=== PATIENT | female | born 1965 | race Caucasian/White ===

== ENCOUNTER 2021-06-14 12:03 | Emergency (ER) | payer BC, SELFPAY ==
[2021-06-14 12:20] VITALS: BP 127/68; PULSE 79; RESP 16; TEMP 36.3; O2SAT 98
--- NOTE | 2021-06-14 12:51 | ED.SKABFB ---
HPI - Skin/Abscess/Foreign Bdy General Chief complaint: Skin/Abscess/Foreign Body Stated complaint: insect bite Time Seen by Provider: 06/14/21 12:51 Source: patient and RN notes reviewed Mode of arrival: ambulatory Limitations: no limitations History of Present Illness HPI narrative: 55-year-old female presents to the [facility] with complaints of possible hornet bite, area now red and warm to touch. Left knee area measuring 5 x 9 mild swelling with redness and increased warmth Patient reports that she was stung by she believes a hornet at 5 PM on Monday, 2 days ago. Has been using some topical numbing stuff. Related Data Home Medications Medication Instructions Recorded Confirmed allopurinol 06/14/21 atorvastatin 06/14/21 escitalopram oxalate mg 06/14/21 Allergies Allergy/AdvReac Type Severity Reaction Status Date / Time Penicillins Allergy Other Verified 06/14/21 12:41 Review of Systems Review of Systems: All systems reviewed & are unremarkable except as noted in HPI and below Constitutional: Constitutional: Reports no additional constitutional complaints, Denies chills and Denies fever(s) Eyes: Eyes: Reports no additional eye complaints ENT: Reports system reviewed and no additional complaints, except as documented Cardiovascular: Cardiovascular: Reports no additional cardiovascular complaints Respiratory: Respiratory: Reports no additional respiratory complaints Musculoskeletal: Musculoskeletal: Reports no additional musculoskeletal complaints Integumentary/Breasts: Skin/Breast: Reports as per HPI and Reports erythema (Left knee) Neurologic: Reports system reviewed and no additional complaints, except as documented Psychiatric: Psychiatric: Reports no additional psychiatric complaints Allergic/Immunologic: Allergic/Immunologic: Reports no additional allergic/immunologic complaints PMFSH Past Medical History Medical History (Updated 06/17/21 @ 11:24 by Jaky Linda) Depression Gout High cholesterol Comments At the time of my signature, I reviewed and agree with the nursing past medical, surgical, social, and family history. There is no relevant family history pertinent to the patient complaint. Exam Const: General: healthy appearing, no acute distress and alert Nutritional Appearance: well nourished Orientation/consciousness: patient oriented x3 Limitations: no limitations HENMT: Head: normal to inspection Eyes: Conjunctivae: conjunctivae normal Pupils: Equal, round and reactive pupils present Neck: Neck: normal visual inspection, no lymphadenopathy and no meningeal signs Chest: Chest palpation & inspection: normal inspection of the chest Resp: Effort & Inspection: normal respiratory effort and no use of accessory muscles Auscultation: clear to auscultation bilaterally Cardio: Rate: regular rate Rhythm: regular rhythm : General: Yes no CVA tenderness Back/Spine/Pelvis: Back: no CVA tenderness Skin: Rashes: no rashes Wounds: no wounds Other: 5x9 cm area left knee area mildly raised, tender, hot to touch Neuro: General: patient oriented x3, moves all extremities, no meningeal signs and no focal motor deficits Speech: normal speech Gait exam (Neuro): Normal gait present Extrem: General: normal to inspection and no pedal edema Psych: Appearance: grossly normal and well kempt Mental Status: mental status grossly normal Affect: normal affect Attitude: cooperative Thought content: Yes Normal thought content present Course Course Emergency Course: Discharge instructions reviewed with patient, as well as provided in writing per nursing staff. The instructions also include specific and strict return/GO TO THE ER as well as f/u information. All questions have been answered, and the patient deny any further questions with discharge and discharge plan. Vital Signs Vital signs: Vital Signs Temperature 97.4 F L 06/14/21 12:20 Pulse Rate 79 06/14/21 12:20 Res
== END 2021-06-14 13:10 | disposition home or self-care (01) ==
PROVIDERS: Emergency Provider Nurse Practitioner
DX: L03.116 Cellulitis of left lower limb (principal); M10.9 Gout, unspecified; E78.00 Pure hypercholesterolemia, unspecified
CPT/HCPCS: 99203; G0463

== ENCOUNTER 2024-09-03 08:49 | Outpatient (CLI) | payer OTHER, SELFPAY ==
[2024-09-03 09:52] LABS: Basophils Absolute Auto 0.04 K/mm3 (0.00-0.10); Basophils Percent Auto 0.5 % (0.0-1.0); Hematocrit 31.4 % (35.0-49.0); Immature Granulocyte Absolute 0.03 K/mm3 (0.00-0.00); Immature Granulocyte Percent A 0.4 % (0.0-0.0); Lymphocytes Absolute Auto 1.26 K/mm3 (1.10-4.50); Lymphocytes Percent Auto 14.9 % (18.0-42.0); Mean Corpuscular HGB Conc 31.8 g/dL (32-36); Mean Corpuscular Hemoglobin 31.7 pg (27.0-31.0); Mean Corpuscular Volume 99.7 fL (78.0-102.0); Mean Platelet Volume 10.6 fl (9.2-11.8); Monocytes Absolute Auto 0.58 K/mm3 (0.10-0.90); Monocytes Percent Auto 6.8 % (2.0-11.0); Neutrophils Absolute Auto 6.56 K/mm3 (1.70-7.20); Neutrophils Percent Auto 77.4 % (50.0-70.0); Platelet Count Result 242 K/mm3 (150-420); Red Blood Count 3.15 M/mm3 (4.20-5.40); Red Cell Distribution Width 15.5 % (11.6-14.4); White Blood Count 8.5 K/mm3 (4.8-10.8)
[2024-09-03 10:03] VITALS: BP 117/64; PULSE 80; RESP 16; TEMP 36.6; O2SAT 98; BMI 27.1
[2024-09-03 10:24] LABS: Estimated CRCL calculation 38 ml/min
[2024-09-03 10:26] LABS: Alanine Aminotransferase 17 U/L (14-59); Albumin Level 3.4 g/dL (3.4-5.0); Alkaline Phosphatase 192 U/L (46-116); Anion Gap 9 mmol/L (4-12); Aspartate Amino Transferase 11 U/L (15-37); Bilirubin,Total 0.2 mg/dL (0.00-1.00); Blood Urea Nitrogen 26 mg/dL (7-18); Calcium 9.3 mg/dL (8.5-10.1); Carbon Dioxide 28 mmol/L (21-32); Chloride 107 mmol/L (98-108); Estimated Glomerular Filt Rate 39; Glucose 98 mg/dL (70-99); Osmolality Calculated 302 mOsm/kg (285-295); Potassium 5.5 mmol/L (3.5-5.1); Sodium 144 mmol/L (136-145); Total Protein 6.7 g/dL (6.4-8.2)
[2024-09-03] MEDS: BORTEZOMIB 3.5 MG/1.4 ML VIAL 2.5 MG SUB-Q (10:53)
[2024-09-03] MEDS: DARATUMUMAB-HYALURONIDASE-FIHJ 1,800 MG-30,000 UNITS VIAL 15 ML SUB-Q (10:53)
--- NOTE | 2024-09-03 11:11 | PC.NURSE ---
Patient tolerated chemo tx injections well. SEE MAR/patient care notes.
[2024-09-03 11:23] VITALS: BP 111/60; PULSE 80; RESP 14; TEMP 36.6; O2SAT 97
== END 2024-09-03 08:50 | disposition home or self-care (01) ==
PROVIDERS: PCP Nurse Practitioner Family; Visit Provider Internal Medicine Hematology
DX: Z51.11 Encounter for antineoplastic chemotherapy (principal); C90.00 Multiple myeloma not having achieved remission; E78.5 Hyperlipidemia, unspecified
CPT/HCPCS: 36415; 80053; 85025; 96401; J9041; J9144

== ENCOUNTER 2024-09-06 08:35 | Outpatient (CLI) | payer OTHER, SELFPAY ==
[2024-09-06 08:53] VITALS: BP 117/60; PULSE 72; RESP 14; TEMP 36.7; O2SAT 98; BMI 29.0
[2024-09-06] MEDS: BORTEZOMIB 3.5 MG/1.4 ML VIAL 2.5 MG SUB-Q (09:09)
[2024-09-06 09:47] VITALS: BP 118/63; PULSE 78; RESP 14
--- NOTE | 2024-09-06 09:47 | PC.NURSE ---
Tolerated bortezomib injection well. SEE MAR/patient care notes
== END 2024-09-06 08:36 | disposition home or self-care (01) ==
PROVIDERS: PCP Nurse Practitioner Family
DX: Z51.11 Encounter for antineoplastic chemotherapy (principal); C90.00 Multiple myeloma not having achieved remission
CPT/HCPCS: 96401; J9041

== ENCOUNTER 2024-09-10 08:40 | Outpatient (CLI) | payer OTHER, SELFPAY ==
[2024-09-10 09:09] VITALS: BP 123/52; PULSE 77; RESP 16; TEMP 36.4; O2SAT 97; BMI 28.8
[2024-09-10] MEDS: DARATUMUMAB-HYALURONIDASE-FIHJ 1,800 MG-30,000 UNITS VIAL 15 ML SUB-Q (09:24)
[2024-09-10] MEDS: BORTEZOMIB 3.5 MG/1.4 ML VIAL 2.5 MG SUB-Q (09:24)
[2024-09-10 09:51] VITALS: BP 113/60; PULSE 72; RESP 14; O2SAT 96
--- NOTE | 2024-09-10 09:58 | PC.NURSE ---
Tolerated Bortezomib and Darzalex Faspro injection well. SEE MAR/patient care notes.
== END 2024-09-10 08:41 | disposition home or self-care (01) ==
PROVIDERS: PCP Nurse Practitioner Family
DX: Z51.11 Encounter for antineoplastic chemotherapy (principal); C90.00 Multiple myeloma not having achieved remission
CPT/HCPCS: 96401; J9041; J9144

== ENCOUNTER 2024-09-11 11:44 | Outpatient (CLI) | payer OTHER, SELFPAY ==
[2024-09-11 12:44] LABS: Alanine Aminotransferase 28 U/L (14-59); Albumin Level 3.4 g/dL (3.4-5.0); Alkaline Phosphatase 170 U/L (46-116); Anion Gap 11 mmol/L (4-12); Aspartate Amino Transferase 10 U/L (15-37); Bilirubin,Total 0.2 mg/dL (0.00-1.00); Blood Urea Nitrogen 29 mg/dL (7-18); Calcium 9.3 mg/dL (8.5-10.1); Carbon Dioxide 27 mmol/L (21-32); Chloride 104 mmol/L (98-108); Estimated Glomerular Filt Rate 52; Glucose 136 mg/dL (70-99); Osmolality Calculated 301 mOsm/kg (285-295); Sodium 142 mmol/L (136-145); Total Protein 6.5 g/dL (6.4-8.2)
== END 2024-09-11 11:45 | disposition home or self-care (01) ==
LOC: CHSLAB 11:46
PROVIDERS: PCP Nurse Practitioner Family; Visit Provider Internal Medicine Hematology
DX: C90.00 Multiple myeloma not having achieved remission (principal)
CPT/HCPCS: 36415; 80053

== ENCOUNTER 2024-09-13 08:35 | Outpatient (CLI) | payer OTHER, SELFPAY ==
[2024-09-13] MEDS: SODIUM CHLORIDE 0.9% IV 1,000 ML 1000 ML IVPB (09:00)
[2024-09-13 09:12] VITALS: BMI 28.8
[2024-09-13] MEDS: BORTEZOMIB 3.5 MG/1.4 ML VIAL 2.5 MG SUB-Q (09:25)
[2024-09-13 09:26] VITALS: BP 109/60; PULSE 78; RESP 14; TEMP 36.5; O2SAT 98
[2024-09-13 10:08] VITALS: BP 111/63; PULSE 78; O2SAT 98
--- NOTE | 2024-09-13 11:11 | PC.NURSE ---
1020 Tolerated IV fluids and Bortezomib injection well. SEE MAR/patient care notes
== END 2024-09-13 08:36 | disposition home or self-care (01) ==
PROVIDERS: PCP Nurse Practitioner Family
DX: Z51.11 Encounter for antineoplastic chemotherapy (principal); C90.00 Multiple myeloma not having achieved remission
CPT/HCPCS: 96360; 96401; J9041

== ENCOUNTER 2024-09-17 08:41 | Outpatient (CLI) | payer OTHER, SELFPAY ==
--- NOTE | ~2024-09-17 | US_ITS ---
EXAMINATION: US venous doppler UE DATE: 09/17/2024 12:34 INDICATION: Left upper limb swelling. TECHNIQUE: Grayscale ultrasound images without and with compression and Doppler ultrasound images of the left upper extremity veins were obtained. COMPARISON: None. FINDINGS: The visualized portions of the left internal jugular vein and subclavian vein are patent. There is th rombus in the left axillary vein, brachial veins, basilic vein, cephalic vein, radial vein, and ulnar vein. IMPRESSION: 1. Deep and superficial vein thrombosis in left upper limb. Reviewed, dictated and finalized at location A. [facility]
[2024-09-17 09:08] LABS: Hemoglobin 10.5 g/dL (12.0-15.0); Immature Platelet Fraction Pct 17.8 % (1.0-7.0); Mean Corpuscular HGB Conc 32.8 g/dL (32-36); Mean Corpuscular Hemoglobin 31.3 pg (27.0-31.0); Mean Corpuscular Volume 95.2 fL (78.0-102.0); Platelet Count Result 75 K/mm3 (150-420); Red Blood Count 3.36 M/mm3 (4.20-5.40); Red Cell Distribution Width 15.4 % (11.6-14.4)
[2024-09-17 09:27] LABS: Alanine Aminotransferase 20 U/L (14-59); Albumin Level 3.1 g/dL (3.4-5.0); Alkaline Phosphatase 143 U/L (46-116); Anion Gap 7 mmol/L (4-12); Aspartate Amino Transferase < 10 U/L (15-37); Bilirubin,Total 0.4 mg/dL (0.00-1.00); Blood Urea Nitrogen 27 mg/dL (7-18); Calcium 8.6 mg/dL (8.5-10.1); Carbon Dioxide 28 mmol/L (21-32); Chloride 104 mmol/L (98-108); Estimated Glomerular Filt Rate 51; Glucose 94 mg/dL (70-99); Osmolality Calculated 293 mOsm/kg (285-295); Sodium 139 mmol/L (136-145); Total Protein 6.4 g/dL (6.4-8.2)
[2024-09-17 09:59] VITALS: BP 107/68; PULSE 78; TEMP 36.4; O2SAT 97; BMI 29.5
[2024-09-17] MEDS: DARATUMUMAB-HYALURONIDASE-FIHJ 1,800 MG-30,000 UNITS VIAL 15 ML SUB-Q (10:14)
[2024-09-17 10:43] VITALS: BP 110/60; PULSE 76; RESP 14; O2SAT 97
--- NOTE | 2024-09-17 10:56 | PC.NURSE ---
Tolerated treatment well. SEE MAR/patient care notes.
== END 2024-09-17 08:42 | disposition home or self-care (01) ==
PROVIDERS: PCP Nurse Practitioner Family; Visit Provider Internal Medicine Hematology
DX: Z51.11 Encounter for antineoplastic chemotherapy (principal); C90.00 Multiple myeloma not having achieved remission; I82.622 Acute embolism and thrombosis of deep veins of left upper extremity; I82.612 Acute embolism and thrombosis of superficial veins of left upper extremity
CPT/HCPCS: 36415; 80053; 85027; 85055; 88305; 93971; 96401; J9144

== ENCOUNTER 2024-09-24 08:45 | Outpatient (CLI) | payer OTHER, SELFPAY ==
[2024-09-24 09:05] LABS: Hematocrit 29.8 % (35.0-49.0); Hemoglobin 9.4 g/dL (12.0-15.0); Mean Corpuscular HGB Conc 31.5 g/dL (32-36); Mean Corpuscular Hemoglobin 30.5 pg (27.0-31.0); Mean Corpuscular Volume 96.8 fL (78.0-102.0); Mean Platelet Volume 10.3 fl (9.2-11.8); Platelet Count Result 346 K/mm3 (150-420); Red Blood Count 3.08 M/mm3 (4.20-5.40); Red Cell Distribution Width 15.9 % (11.6-14.4); White Blood Count 3.5 K/mm3 (4.8-10.8)
[2024-09-24 09:10] VITALS: BP 123/60; PULSE 73; RESP 16; TEMP 36.6; O2SAT 98; BMI 29.3
[2024-09-24 09:17] LABS: Alanine Aminotransferase 20 U/L (14-59); Alkaline Phosphatase 155 U/L (46-116); Anion Gap 4 mmol/L (4-12); Aspartate Amino Transferase < 10 U/L (15-37); Bilirubin,Total 0.3 mg/dL (0.00-1.00); Blood Urea Nitrogen 25 mg/dL (7-18); Carbon Dioxide 29 mmol/L (21-32); Chloride 105 mmol/L (98-108); Estimated CRCL calculation 55 ml/min; Estimated Glomerular Filt Rate 56; Glucose 100 mg/dL (70-99); Osmolality Calculated 290 mOsm/kg (285-295); Potassium 5.1 mmol/L (3.5-5.1); Sodium 138 mmol/L (136-145); Total Protein 6.4 g/dL (6.4-8.2)
[2024-09-24 09:24] LABS: Band Neutrophils Percent 0 % (0-6); Eosinophils Absolute Manual 0.03 K/mm3 (0.02-0.50); Eosinophils Percent Manual 1 % (1-6); Lymphocytes Absolute Manual 0.28 K/mm3 (1.1-4.5); Lymphocytes Percent Manual 8 % (18-44); Monocytes Absolute Manual 0.45 K/mm3 (0.1-0.90); Monocytes Percent Manual 13 % (3-9); Neutrophils Absolute Manual 2.73 K/mm3 (1.7-7.2); Neutrophils Percent Manual 78 % (46-73); Platelet Estimate Adequate (Adequate); Total Cells Counted 100
[2024-09-24] MEDS: FAMOTIDINE 20 MG TABLET PO (09:35)
[2024-09-24] MEDS: diphenhydrAMINE HCl CAP 25 MG CAPSULE PO (09:35)
[2024-09-24] MEDS: ACETAMINOPHEN 325 MG TABLET 650 MG PO (09:35)
[2024-09-24] MEDS: BORTEZOMIB 3.5 MG/1.4 ML VIAL 2.5 MG SUB-Q (10:13)
[2024-09-24] MEDS: DARATUMUMAB-HYALURONIDASE-FIHJ 1,800 MG-30,000 UNITS VIAL 15 ML SUB-Q (10:14)
[2024-09-24 10:50] VITALS: BP 103/60; PULSE 72; RESP 14; O2SAT 98
--- NOTE | 2024-09-24 11:10 | PC.NURSE ---
Tolerated treatment well. SEE MAR/patient care notes.
== END 2024-09-24 08:46 | disposition home or self-care (01) ==
PROVIDERS: PCP Nurse Practitioner Family
DX: C90.00 Multiple myeloma not having achieved remission (principal)
CPT/HCPCS: 36415; 80053; 85025; 96401; A9270; J9041; J9144

== ENCOUNTER 2024-09-27 08:46 | Outpatient (CLI) | payer OTHER, SELFPAY ==
[2024-09-27 09:04] VITALS: BP 103/63; PULSE 80; RESP 14; TEMP 36.5; O2SAT 98; BMI 29.7
[2024-09-27] MEDS: BORTEZOMIB 3.5 MG/1.4 ML VIAL 2.5 MG SUB-Q (09:17)
[2024-09-27 09:35] VITALS: BP 107/60; PULSE 78; RESP 14
--- NOTE | 2024-09-27 09:37 | PC.NURSE ---
Patient tolerated Bortezomib injection well. SEE MAR/patient care notes. Had to document in MAR manual r/t admitting unable to print arm band with barcode/stickers.
== END 2024-09-27 08:47 | disposition home or self-care (01) ==
PROVIDERS: PCP Nurse Practitioner Family
DX: Z51.11 Encounter for antineoplastic chemotherapy (principal); C90.00 Multiple myeloma not having achieved remission
CPT/HCPCS: 96401; J9041

== ENCOUNTER 2024-10-01 08:56 | Outpatient (CLI) | payer OTHER, SELFPAY ==
[2024-10-01 09:16] VITALS: BP 107/68; PULSE 72; RESP 14; TEMP 36; O2SAT 98; BMI 29.3
[2024-10-01 09:18] LABS: Hematocrit 31.4 % (35.0-49.0); Hemoglobin 9.8 g/dL (12.0-15.0); Mean Corpuscular HGB Conc 31.2 g/dL (32-36); Mean Corpuscular Hemoglobin 29.8 pg (27.0-31.0); Mean Corpuscular Volume 95.4 fL (78.0-102.0); Mean Platelet Volume 12.6 fl (9.2-11.8); Platelet Count Result 196 K/mm3 (150-420); Red Blood Count 3.29 M/mm3 (4.20-5.40); Red Cell Distribution Width 16.3 % (11.6-14.4); White Blood Count 3.2 K/mm3 (4.8-10.8)
[2024-10-01 09:39] LABS: Alanine Aminotransferase 17 U/L (14-59); Alkaline Phosphatase 160 U/L (46-116); Anion Gap 7 mmol/L (4-12); Aspartate Amino Transferase < 10 U/L (15-37); Bilirubin,Total 0.2 mg/dL (0.00-1.00); Blood Urea Nitrogen 22 mg/dL (7-18); Calcium 8.8 mg/dL (8.5-10.1); Carbon Dioxide 29 mmol/L (21-32); Chloride 106 mmol/L (98-108); Estimated CRCL calculation 54 ml/min; Estimated Glomerular Filt Rate 55; Glucose 102 mg/dL (70-99); Osmolality Calculated 297 mOsm/kg (285-295); Potassium 4.2 mmol/L (3.5-5.1); Sodium 142 mmol/L (136-145); Total Protein 6.3 g/dL (6.4-8.2)
[2024-10-01 09:48] LABS: Band Neutrophils Percent 5 % (0-6); Basophils Absolute Manual 0.03 K/mm3 (0-0.1); Basophils Percent Manual 1 % (0-1); Eosinophils Percent Manual 0 % (1-6); Lymphocytes Absolute Manual 0.28 K/mm3 (1.1-4.5); Lymphocytes Percent Manual 9 % (18-44); Monocytes Absolute Manual 0.32 K/mm3 (0.1-0.90); Monocytes Percent Manual 10 % (3-9); Neutrophils Absolute Manual 2.56 K/mm3 (1.7-7.2); Neutrophils Percent Manual 75 % (46-73); Platelet Estimate Adequate (Adequate); Total Cells Counted 100
[2024-10-01] MEDS: DARATUMUMAB-HYALURONIDASE-FIHJ 1,800 MG-30,000 UNITS VIAL 15 ML SUB-Q (10:35)
[2024-10-01] MEDS: BORTEZOMIB 3.5 MG/1.4 ML VIAL 2.5 MG SUB-Q (10:36)
[2024-10-01 10:51] VITALS: BP 117/59; PULSE 78; RESP 14; TEMP 36.1; O2SAT 97
--- NOTE | 2024-10-01 10:52 | PC.NURSE ---
Tolerated injections well. SEE MAR/patient care notes.
== END 2024-10-01 08:57 | disposition home or self-care (01) ==
PROVIDERS: PCP Nurse Practitioner Family; Visit Provider Internal Medicine Hematology
DX: Z51.11 Encounter for antineoplastic chemotherapy (principal); C90.00 Multiple myeloma not having achieved remission
CPT/HCPCS: 36415; 80053; 85025; 96401; J9041; J9144

== ENCOUNTER 2024-10-04 08:45 | Outpatient (CLI) | payer OTHER, SELFPAY ==
[2024-10-04 09:05] VITALS: BP 113/57; PULSE 70; RESP 16; TEMP 36.6; O2SAT 98; BMI 29.5
[2024-10-04] MEDS: BORTEZOMIB 3.5 MG/1.4 ML VIAL 2.5 MG SUB-Q (09:16)
--- NOTE | 2024-10-04 09:23 | PC.NURSE ---
Patient tolerated her treatment injection well. SEE MAR/patient care notes.
[2024-10-04 09:24] VITALS: BP 113/60; PULSE 80; RESP 14
== END 2024-10-04 08:46 | disposition home or self-care (01) ==
PROVIDERS: PCP Nurse Practitioner Family; Visit Provider Internal Medicine Hematology
DX: Z51.11 Encounter for antineoplastic chemotherapy (principal); C90.00 Multiple myeloma not having achieved remission
CPT/HCPCS: 96401; J9041

== ENCOUNTER 2024-10-15 08:53 | Outpatient (CLI) | payer OTHER, SELFPAY ==
[2024-10-15 09:21] LABS: Hematocrit 29.7 % (35.0-49.0); Hemoglobin 9.6 g/dL (12.0-15.0); Mean Corpuscular HGB Conc 32.3 g/dL (32-36); Mean Corpuscular Hemoglobin 30.9 pg (27.0-31.0); Mean Corpuscular Volume 95.5 fL (78.0-102.0); Platelet Count Result 242 K/mm3 (150-420); Red Blood Count 3.11 M/mm3 (4.20-5.40); Red Cell Distribution Width 16.9 % (11.6-14.4); White Blood Count 4.8 K/mm3 (4.8-10.8)
[2024-10-15 09:22] VITALS: BP 115/63; PULSE 72; RESP 16; TEMP 36.6; O2SAT 98; BMI 29.2
[2024-10-15] MEDS: ACETAMINOPHEN 325 MG TABLET 650 MG PO (09:45)
[2024-10-15 09:51] LABS: Alanine Aminotransferase 18 U/L (14-59); Albumin Level 3.1 g/dL (3.4-5.0); Alkaline Phosphatase 129 U/L (46-116); Anion Gap 8 mmol/L (4-12); Aspartate Amino Transferase < 10 U/L (15-37); Bilirubin,Total 0.2 mg/dL (0.00-1.00); Blood Urea Nitrogen 31 mg/dL (7-18); Calcium 8.7 mg/dL (8.5-10.1); Carbon Dioxide 26 mmol/L (21-32); Chloride 105 mmol/L (98-108); Estimated Glomerular Filt Rate 57; Glucose 126 mg/dL (70-99); Osmolality Calculated 296 mOsm/kg (285-295); Potassium 4.6 mmol/L (3.5-5.1); Sodium 139 mmol/L (136-145); Total Protein 5.9 g/dL (6.4-8.2)
[2024-10-15 09:53] LABS: Estimated CRCL calculation 55 ml/min
[2024-10-15] MEDS: FAMOTIDINE 20 MG TABLET PO (10:00)
[2024-10-15] MEDS: diphenhydrAMINE HCl CAP 25 MG CAPSULE PO (10:01)
[2024-10-15] MEDS: DARATUMUMAB-HYALURONIDASE-FIHJ 1,800 MG-30,000 UNITS VIAL 15 ML SUB-Q (10:10)
[2024-10-15] MEDS: BORTEZOMIB 3.5 MG/1.4 ML VIAL 2.5 MG SUB-Q (10:10)
[2024-10-15 10:46] VITALS: BP 113/60; PULSE 72; RESP 16; O2SAT 96
--- NOTE | 2024-10-15 10:47 | PC.NURSE ---
Patient tolerated injections well. SEE MAR/patient care notes.
== END 2024-10-15 08:54 | disposition home or self-care (01) ==
PROVIDERS: PCP Nurse Practitioner Family
DX: Z51.11 Encounter for antineoplastic chemotherapy (principal); C90.00 Multiple myeloma not having achieved remission
CPT/HCPCS: 36415; 80053; 85027; 96401; A9270; J9041; J9144

== ENCOUNTER 2024-10-18 09:01 | Outpatient (CLI) | payer OTHER, SELFPAY ==
[2024-10-18 09:14] VITALS: BP 109/57; PULSE 80; RESP 14; TEMP 36.6; O2SAT 97; BMI 29.2
[2024-10-18] MEDS: BORTEZOMIB 3.5 MG/1.4 ML VIAL 2.5 MG SUB-Q (09:34)
--- NOTE | 2024-10-18 09:42 | PC.NURSE ---
Tolerated Bortezomib injection well. SEE MAR/patient care notes.
[2024-10-18 09:43] VITALS: BP 107/56; PULSE 78; RESP 14; O2SAT 97
== END 2024-10-18 09:02 | disposition home or self-care (01) ==
PROVIDERS: PCP Nurse Practitioner Family
DX: Z51.11 Encounter for antineoplastic chemotherapy (principal); C90.00 Multiple myeloma not having achieved remission
CPT/HCPCS: 96401; J9041

== ENCOUNTER 2024-10-22 08:55 | Outpatient (CLI) | payer OTHER, SELFPAY ==
[2024-10-22 09:18] LABS: Basophils Absolute Auto 0.05 K/mm3 (0.00-0.10); Basophils Percent Auto 1.2 % (0.0-1.0); Hematocrit 30.9 % (35.0-49.0); Hemoglobin 10.1 g/dL (12.0-15.0); Immature Granulocyte Absolute 0.03 K/mm3 (0.00-0.00); Immature Granulocyte Percent A 0.7 % (0.0-0.0); Lymphocytes Percent Auto 4.8 % (18.0-42.0); Mean Corpuscular HGB Conc 32.7 g/dL (32-36); Mean Corpuscular Volume 94.8 fL (78.0-102.0); Mean Platelet Volume 11.7 fl (9.2-11.8); Monocytes Absolute Auto 0.21 K/mm3 (0.10-0.90); Neutrophils Absolute Auto 3.69 K/mm3 (1.70-7.20); Neutrophils Percent Auto 88.3 % (50.0-70.0); Platelet Count Result 161 K/mm3 (150-420); Red Blood Count 3.26 M/mm3 (4.20-5.40); Red Cell Distribution Width 17.3 % (11.6-14.4); White Blood Count 4.2 K/mm3 (4.8-10.8)
[2024-10-22 09:27] VITALS: BP 110/58; PULSE 72; RESP 16; TEMP 36.6; O2SAT 96; BMI 29.3
[2024-10-22] MEDS: diphenhydrAMINE HCl CAP 25 MG CAPSULE PO (09:30)
[2024-10-22] MEDS: FAMOTIDINE 20 MG TABLET PO (09:30)
[2024-10-22] MEDS: ACETAMINOPHEN 325 MG TABLET 650 MG PO (09:30)
[2024-10-22 09:34] LABS: Alanine Aminotransferase 20 U/L (14-59); Albumin Level 3.3 g/dL (3.4-5.0); Alkaline Phosphatase 139 U/L (46-116); Anion Gap 10 mmol/L (4-12); Aspartate Amino Transferase < 10 U/L (15-37); Bilirubin,Total 0.4 mg/dL (0.00-1.00); Blood Urea Nitrogen 22 mg/dL (7-18); Calcium 8.9 mg/dL (8.5-10.1); Carbon Dioxide 27 mmol/L (21-32); Chloride 105 mmol/L (98-108); Estimated Glomerular Filt Rate 54; Glucose 95 mg/dL (70-99); Osmolality Calculated 297 mOsm/kg (285-295); Potassium 4.6 mmol/L (3.5-5.1); Sodium 142 mmol/L (136-145); Total Protein 6.2 g/dL (6.4-8.2)
[2024-10-22 09:37] LABS: Estimated CRCL calculation 53 ml/min
[2024-10-22] MEDS: DARATUMUMAB-HYALURONIDASE-FIHJ 1,800 MG-30,000 UNITS VIAL 15 ML SUB-Q (09:55)
[2024-10-22] MEDS: BORTEZOMIB 3.5 MG/1.4 ML VIAL 2.5 MG SUB-Q (09:55)
[2024-10-22 10:25] VITALS: BP 112/57; PULSE 72; RESP 14; O2SAT 97
--- NOTE | 2024-10-22 10:36 | PC.NURSE ---
Tolerated chemo injections well. see MAR/patient care notes.
== END 2024-10-22 08:56 | disposition home or self-care (01) ==
PROVIDERS: PCP Nurse Practitioner Family; Visit Provider Internal Medicine Hematology
DX: Z51.11 Encounter for antineoplastic chemotherapy (principal); C90.00 Multiple myeloma not having achieved remission
CPT/HCPCS: 36415; 80053; 85025; 96401; A9270; J9041; J9144

== ENCOUNTER 2024-10-25 08:43 | Outpatient (CLI) | payer OTHER, SELFPAY ==
[2024-10-25 09:00] VITALS: BP 108/59; PULSE 72; RESP 16; TEMP 36.6; O2SAT 96; BMI 29.3
[2024-10-25] MEDS: BORTEZOMIB 3.5 MG/1.4 ML VIAL 2.5 MG SUB-Q (09:19)
[2024-10-25 09:27] VITALS: BP 110/54; PULSE 72; RESP 14; O2SAT 97
--- NOTE | 2024-10-25 09:29 | PC.NURSE ---
Tolerated Bortezomib injection well. SEE MAR/patient care notes.
== END 2024-10-25 08:44 | disposition home or self-care (01) ==
PROVIDERS: PCP Nurse Practitioner Family; Visit Provider Internal Medicine Hematology
DX: Z51.11 Encounter for antineoplastic chemotherapy (principal); C90.00 Multiple myeloma not having achieved remission
CPT/HCPCS: 96401; J9041

== ENCOUNTER 2024-10-30 13:11 | Outpatient (CLI) | payer OTHER, SELFPAY ==
[2024-10-30 13:32] VITALS: BP 113/53; PULSE 78; RESP 16; TEMP 36.6; O2SAT 97
[2024-10-30 13:35] VITALS: BMI 29.3
[2024-10-30] MEDS: diphenhydrAMINE HCl CAP 25 MG CAPSULE PO (13:41)
[2024-10-30] MEDS: ACETAMINOPHEN 325 MG TABLET 650 MG PO (13:41)
[2024-10-30] MEDS: FAMOTIDINE 20 MG TABLET PO (13:41)
[2024-10-30] MEDS: DARATUMUMAB-HYALURONIDASE-FIHJ 1,800 MG-30,000 UNITS VIAL 15 ML SUB-Q (13:51)
[2024-10-30 14:10] VITALS: BP 112/57; PULSE 78; RESP 14; O2SAT 97
--- NOTE | 2024-10-30 14:17 | PC.NURSE ---
Tolerated treatment injection well. SEE MAR/patient care notes.
== END 2024-10-30 13:12 | disposition home or self-care (01) ==
PROVIDERS: PCP Nurse Practitioner Family
DX: Z51.11 Encounter for antineoplastic chemotherapy (principal); C90.00 Multiple myeloma not having achieved remission
CPT/HCPCS: 96401; A9270; J9144

== ENCOUNTER 2024-11-05 08:47 | Outpatient (CLI) | payer OTHER, SELFPAY ==
[2024-11-05 09:12] LABS: Hematocrit 32.5 % (35.0-49.0); Hemoglobin 10.2 g/dL (12.0-15.0); Mean Corpuscular HGB Conc 31.4 g/dL (32-36); Mean Corpuscular Hemoglobin 29.9 pg (27.0-31.0); Mean Corpuscular Volume 95.3 fL (78.0-102.0); Mean Platelet Volume 11.2 fl (9.2-11.8); Platelet Count Result 179 K/mm3 (150-420); Red Blood Count 3.41 M/mm3 (4.20-5.40); Red Cell Distribution Width 17.3 % (11.6-14.4)
[2024-11-05 09:27] LABS: Alanine Aminotransferase 20 U/L (14-59); Albumin Level 3.3 g/dL (3.4-5.0); Alkaline Phosphatase 119 U/L (46-116); Anion Gap 8 mmol/L (4-12); Aspartate Amino Transferase 10 U/L (15-37); Bilirubin,Total 0.3 mg/dL (0.00-1.00); Blood Urea Nitrogen 25 mg/dL (7-18); Carbon Dioxide 29 mmol/L (21-32); Chloride 105 mmol/L (98-108); Estimated Glomerular Filt Rate 52; Glucose 104 mg/dL (70-99); Osmolality Calculated 298 mOsm/kg (285-295); Potassium 4.5 mmol/L (3.5-5.1); Sodium 142 mmol/L (136-145); Total Protein 6.3 g/dL (6.4-8.2)
[2024-11-05 09:28] VITALS: BP 104/53; PULSE 72; RESP 16; TEMP 36.6; O2SAT 97; BMI 29.3
[2024-11-05 09:31] LABS: Band Neutrophils Percent 0 % (0-6); Lymphocytes Absolute Manual 0.36 K/mm3 (1.1-4.5); Lymphocytes Percent Manual 12 % (18-44); Monocytes Absolute Manual 0.69 K/mm3 (0.1-0.90); Monocytes Percent Manual 23 % (3-9); Neutrophils Absolute Manual 1.95 K/mm3 (1.7-7.2); Neutrophils Percent Manual 65 % (46-73); Platelet Estimate Adequate (Adequate); Total Cells Counted 100
[2024-11-05 09:32] LABS: Estimated CRCL calculation 51 ml/min
[2024-11-05] MEDS: BORTEZOMIB 3.5 MG/1.4 ML VIAL 2.5 MG SUB-Q (10:14)
[2024-11-05] MEDS: DARATUMUMAB-HYALURONIDASE-FIHJ 1,800 MG-30,000 UNITS VIAL 15 ML SUB-Q (10:14)
[2024-11-05 10:49] VITALS: BP 106/56; PULSE 78; RESP 14; TEMP 36.6; O2SAT 97
--- NOTE | 2024-11-05 10:50 | PC.NURSE ---
Tolerated chemo injections well. SEE MAR/patient care notes.
== END 2024-11-05 08:48 | disposition home or self-care (01) ==
PROVIDERS: PCP Nurse Practitioner Family
DX: Z51.11 Encounter for antineoplastic chemotherapy (principal); C90.00 Multiple myeloma not having achieved remission
CPT/HCPCS: 36415; 80053; 85025; 96401; A9270; J9041; J9144

== ENCOUNTER 2024-11-08 08:50 | Outpatient (CLI) | payer OTHER, SELFPAY ==
[2024-11-08] MEDS: DENOSUMAB 60 MG/ML SYRINGE 120 MG SUB-Q (09:29)
[2024-11-08] MEDS: BORTEZOMIB 3.5 MG/1.4 ML VIAL 2.5 MG SUB-Q (09:29)
[2024-11-08 09:39] VITALS: BP 108/56; PULSE 72; RESP 14; TEMP 36.6; O2SAT 97; BMI 29.1
[2024-11-10 06:53] LABS: Immunoglobulin A 30 mg/dL (70-320); Immunoglobulin G 459 mg/dL (600-1540); Immunoglobulin M 11 mg/dL (50-300)
[2024-11-11 11:39] LABS: Kappa\\Lambda Light Chains 1.39 (0.26-1.65); Lambda Light Chain 6.4 mg/L (5.7-26.3)
[2024-11-11 15:02] LABS: Protein, Total 5.6 g/dL (6.1-8.1)
[2024-11-12 19:14] LABS: Abnormal Protein Band 1 0.1 g/dL (NONE DETECTED); Albumin 3.5 g/dL (3.8-4.8); Alpha 1 Globulin 0.3 g/dL (0.2-0.3); Alpha 2 Globulin 0.8 g/dL (0.5-0.9); Beta 1 Globulin 0.4 g/dL (0.4-0.6); Gamma Globulin 0.4 g/dL (0.8-1.7)
== END 2024-11-08 08:51 | disposition home or self-care (01) ==
PROVIDERS: PCP Nurse Practitioner Family; Visit Provider Internal Medicine Hematology
DX: Z51.11 Encounter for antineoplastic chemotherapy (principal); C90.00 Multiple myeloma not having achieved remission
CPT/HCPCS: 36415; 82784; 83883; 84155; 84165; 86334; 96372; 96401; J0897; J9041

== ENCOUNTER 2024-11-12 08:46 | Outpatient (CLI) | payer OTHER, SELFPAY ==
[2024-11-12 09:06] VITALS: BMI 29.2
[2024-11-12 09:16] LABS: Hematocrit 33.1 % (35.0-49.0); Hemoglobin 10.3 g/dL (12.0-15.0); Immature Platelet Fraction Pct 13.1 % (1.0-7.0); Mean Corpuscular HGB Conc 31.1 g/dL (32-36); Mean Corpuscular Hemoglobin 29.6 pg (27.0-31.0); Mean Corpuscular Volume 95.1 fL (78.0-102.0); Platelet Count Result 98 K/mm3 (150-420); Red Blood Count 3.48 M/mm3 (4.20-5.40); Red Cell Distribution Width 17.9 % (11.6-14.4)
[2024-11-12 09:23] VITALS: BP 111/56; PULSE 72; RESP 16; TEMP 36.6; O2SAT 97
[2024-11-12 09:28] LABS: Alanine Aminotransferase 16 U/L (14-59); Albumin Level 3.1 g/dL (3.4-5.0); Alkaline Phosphatase 102 U/L (46-116); Anion Gap 9 mmol/L (4-12); Aspartate Amino Transferase < 10 U/L (15-37); Bilirubin,Total 0.3 mg/dL (0.00-1.00); Blood Urea Nitrogen 20 mg/dL (7-18); Calcium 7.1 mg/dL (8.5-10.1); Carbon Dioxide 26 mmol/L (21-32); Chloride 107 mmol/L (98-108); Estimated CRCL calculation 53 ml/min; Estimated Glomerular Filt Rate 55; Glucose 89 mg/dL (70-99); Osmolality Calculated 295 mOsm/kg (285-295); Potassium 4.6 mmol/L (3.5-5.1); Sodium 142 mmol/L (136-145)
[2024-11-12 09:30] LABS: Band Neutrophils Percent 2 % (0-6); Basophils Absolute Manual 0.02 K/mm3 (0-0.1); Basophils Percent Manual 1 % (0-1); Eosinophils Absolute Manual 0.02 K/mm3 (0.02-0.50); Eosinophils Percent Manual 1 % (1-6); Lymphocytes Absolute Manual 0.48 K/mm3 (1.1-4.5); Lymphocytes Percent Manual 24 % (18-44); Metamyelocytes Percent 1 %; Monocytes Absolute Manual 0.12 K/mm3 (0.1-0.90); Monocytes Percent Manual 6 % (3-9); Neutrophils Absolute Manual 1.34 K/mm3 (1.7-7.2); Neutrophils Percent Manual 65 % (46-73); Platelet Estimate Decreased (Adequate); Total Cells Counted 100
[2024-11-12] MEDS: DARATUMUMAB-HYALURONIDASE-FIHJ 1,800 MG-30,000 UNITS VIAL 15 ML SUB-Q (10:13)
[2024-11-12] MEDS: BORTEZOMIB 3.5 MG/1.4 ML VIAL 2.5 MG SUB-Q (10:14)
--- NOTE | 2024-11-12 10:30 | PC.NURSE ---
Tolerated chemo injections well. SEE MAR/patient care notes.
[2024-11-12 12:12] VITALS: BP 107/56; PULSE 72; RESP 14; TEMP 36.4; O2SAT 97
== END 2024-11-12 08:47 | disposition home or self-care (01) ==
PROVIDERS: Internal Medicine Hematology; PCP Nurse Practitioner Family
DX: Z51.11 Encounter for antineoplastic chemotherapy (principal); C90.00 Multiple myeloma not having achieved remission
CPT/HCPCS: 36415; 80053; 85025; 85055; 96367; 96401; 96413; J9041; J9144

== ENCOUNTER 2024-11-20 08:58 | Outpatient (CLI) | payer OTHER, SELFPAY ==
[2024-11-20 09:04] VITALS: BMI 28.9
[2024-11-20 09:25] VITALS: BP 117/54; PULSE 72; RESP 16; TEMP 36.6; O2SAT 98
--- OUTSIDE RECORDS SUMMARY | 2024-11-20 09:28 | XMS_ITS | Clinical Summary ---
Author Organization [address] Address [address] [place] [phone] Care Team Providers Care Social Media Marketer Name Role Phone Maria Luisa Dupree MD Unavailable Carri Kohli NP Primary Care Provider [phone] Toby Soto MD Unavailable [phone] Allergies Active Allergy Reactions Criticality Noted Date Comments Penicillins Rash,Swelling Medium 02/09/2015 Medications acyclovir (ZOVIRAX) 400 mg tabletIndicatio ns:Multiple myeloma not having achieved remission (CMS/HCC) (HCC) Take 1 tablet (400 mg total) by mouth 2 (two) times a day 4 Active allopurinoL (ZYLOPRIM) 300 mg tabletIndicatio ns:Multiple myeloma not having achieved remission (CMS/HCC) (HCC) Take 1 tablet (300 mg total) by mouth daily 4 Active Eliquis 5 mg tabletIndicatio ns:Multiple myeloma not having achieved remission (CMS/HCC) (HCC) Take 1 tablet (5 mg total) by mouth 2 (two) times a day 4 Active atorvastatin (LIPITOR) 20 mg tabletIndicatio ns:Multiple myeloma not having achieved remission (CMS/HCC) (HCC) Take 1 tablet (20 mg total) by mouth daily Active calcitonin (MIACALCIN) 200 unit/actuation nasal sprayIndication s:Multiple myeloma not having achieved remission (CMS/HCC) (HCC) USE ONE SPRAY IN ONE NOSTRIL ONCE DAILY Active dexAMETHasone (DECADRON) 4 mg tabletIndicatio ns:Multiple myeloma not having achieved remission (CMS/HCC) (HCC) Take 5 tablets on days 1, 2, 8, 9, 15, 16 of each 21 day cycle Active ergocalciferol (VITAMIN D) 50,000 unit capsuleIndicati ons:Multiple myeloma not having achieved remission (CMS/HCC) (HCC) Take 1 capsule (50,000 Units total) by mouth once a week Active hydrOXYzine (ATARAX) 10 mg tabletIndicatio ns:Multiple myeloma not having achieved remission (CMS/HCC) (HCC) Take 1 tablet (10 mg total) by mouth 3 (three) times a day as needed 4 Active lenalidomide (REVLIMID) 25 mg capsuleIndicati ons:Multiple myeloma not having achieved remission (CMS/HCC) (HCC) Take 1 capsule (25 mg total) by mouth daily 4 Active cycloPHOSphamid e (CYTOXAN) 25 mg capsuleIndicati ons:Multiple myeloma not having achieved remission (CMS/HCC) (HCC) TAKE ONE TABLET BY MOUTH IN COMBINATION WITH 11 TABLETS OF 50MG ONCE WEEKLY TOTAL WEEKLY DOSE OF 575MG 4 Active cycloPHOSphamid e (CYTOXAN) 50 mg capsuleIndicati ons:Multiple myeloma not having achieved remission (CMS/HCC) (HCC) TAKE 11 CAPSULES (550MG) BY MOUTH IN COMBINATION WITH ONE 25MG CAPSULE ONCE WEEKLY TOTAL WEEKLY DOSE OF 575MG 4 Active famotidine (PEPCID) 20 mg tabletIndicatio ns:Autologous donor of stem cells,Multiple myeloma not having achieved remission (CMS/HCC) (HCC) Take 1 tablet (20 mg total) by mouth daily Take at least 30 minutes prior to your first filgrastim injection starting on 12/06/24. Continue daily until two days after your last filgrastim injection. 10 tablet 5 Active loratadine (CLARITIN) 10 mg tabletIndicatio ns:Autologous donor of stem cells,Multiple myeloma not having achieved remission (CMS/HCC) (HCC) Take 1 tablet (10 mg total) by mouth daily Take at least 30 minutes prior to your first filgrastim injection starting 12/06/24, Continue daily until two days after your last filgrastim injection. 10 tablet 5 Active montelukast (SINGULAIR) 10 mg tabletIndicatio ns:Autologous donor of stem cells,Multiple myeloma not having achieved remission (CMS/HCC) (HCC) Take 1 tablet (10 mg total) by mouth daily Take at least 30 minutes prior to your first filgrastim injection starting 12/06/24, Continue daily until two days after your last filgrastim injection. 10 tablet 5 Active Active Problems Problem Noted Date Diagnosed Date Multiple myeloma not having achieved remission ( CMS/HCC) 11/07/2024 Autologous donor of stem cells 11/07/2024 Encounters Date Type Department Care Team Description 11/19/2024 Orders Only [facility] [address] [facility] Floor [address] [place] [address] Toby Soto MD Autologous donor of stem cells (Primary Dx); Multiple myeloma not having achieved remission (CMS/HCC) (HCC); Abnormal echocardiogram 11/14/2024 3:04 PM ENDOSCOPY TECHNICAN - 11/14/2024 11:59 PM ENDOSCOPY TECHNICAN Hospital Encounter [facility] [place] [address] Multiple myeloma not having achieved remission (CMS/HCC) (HCC) Discharge Disposition: Discharge to home or self care 11/14/2024 3:04 PM ENDOSCOPY TECHNICAN - 11/14/2024 11:59 PM ENDOSCOPY TECHNICAN Hospital Encounter [facility]) [address] [place] [phone] Multiple myeloma not having achieved remission (CMS/HCC) (HCC) Discharge Disposition: Discharge to home or self care 11/14/2024 2:00 PM ENDOSCOPY TECHNICAN Social Work [facility] [address] [facility], 8th Floor, [place] [address] Joy Johnson LCSW 11/14/2024 12:38 PM ENDOSCOPY TECHNICAN - 11/14/2024 11:59 PM ENDOSCOPY TECHNICAN Hospital Encounter [facility] [address] [facility] [address] [place] [address] Multiple myeloma not having achieved remission (CMS/HCC) (HCC) Discharge Disposition: Discharge to home or self care 11/14/2024 11:15 AM ENDOSCOPY TECHNICAN Lab [facility] [address] [place] [address] 11/14/2024 10:45 AM ENDOSCOPY TECHNICAN Clinical Support [facility] - [facility] [address] [facility] Floor 6 [place] [address] Multiple myeloma not having achieved remission (CMS/HCC) (HCC) 11/14/2024 8:24 AM ENDOSCOPY TECHNICAN - 11/14/2024 11:59 PM ENDOSCOPY TECHNICAN Hospital Encounter [facility] [address] [facility] Floor 8 [place] [address] Multiple myeloma not having achieved remission (CMS/HCC) (HCC) Discharge Disposition: Discharge to home or self care 11/14/2024 7:20 AM ENDOSCOPY TECHNICAN - 11/14/2024 11:59 PM ENDOSCOPY TECHNICAN Hospital Encounter [facility] [address] [place] [address] 1, [address] [place] [id number] Multiple myeloma not having achieved remission (CMS/HCC) (HCC) Discharge Disposition: Discharge to home or self care 11/07/2024 Orders Only [facility] [address] [place] [phone] Toby Soto MD Autologous donor of stem cells (Primary Dx); Multiple myeloma not having achieved remission (CMS/HCC) (HCC) 10/30/2024 Orders Only [address] [phone] Kate Newell Multiple myeloma not having achieved remission (CMS/HCC) (HCC) (Primary Dx) 10/17/2024 Orders Only [facility] [address] [place] [phone] Toby Soto MD Multiple myeloma not having achieved remission (CMS/HCC) (HCC) (Primary Dx) 10/17/2024 Orders Only [facility] [address] [place] [phone] Toby Soto MD Multiple myeloma not having achieved remission (CMS/HCC) (HCC) (Primary Dx) 10/09/2024 Orders Only [facility] Scanning, Provider 10/08/2024 Treatment [facility] [address] [address] MetcalfDanika gastelum, 10/07/2024 1:00 PM ENDOSCOPY TECHNICAN Office Visit [facility] [address] [place] [phone] Toby Soto MD Multiple myeloma not having achieved remission (CMS/HCC) (HCC) 10/07/2024 12:00 PM ENDOSCOPY TECHNICAN Lab [facility] [address] [place] [phone] 10/07/2024 11:45 AM ENDOSCOPY TECHNICAN Lab [facility] [address] [place] [address] Multiple myeloma not having achieved remission (CMS/HCC) (HCC) 10/03/2024 Orders Only [facility] [address] [place] [phone] Toby Soto MD Multiple myeloma not having achieved remission (CMS/HCC) (HCC) (Primary Dx) 09/23/2024 Orders Only [facility] [address] [place] [phone] Toby Soto MD Multiple myeloma not having achieved remission (CMS/HCC) (HCC) (Primary Dx) from Last 3 Months Immunizations Name Administration Dates Next Due Influenza, Quadrivalent, Chloé l Culture-based MDCK, Preservative Free, Antibiotic Free, Intramuscular 08/27/2021 Influenza, Quadrivalent, Rec ombinant, Egg Free, Preservative Free, Intramuscular 07/16/2020 Pneumococcal Polysaccharide PPV23 02/13/2019 Tdap 02/13/2019 ZOSTER Recombinant 08/28/2020,07/16/2020 Social History Tobacco Use Types Packs/Day Years Used Date Smoking Tobacco: Former Cigarettes Smokeless Tobacco: Never Tobacco Cessation:Counseling Given: Not Answered [facility] Utilities Answer Date Recorded In the past 12 months has [employer], gas, oil, or water company threatened to shut off services in your home? No 11/15/2024 Social Connection and Isolat ion Panel [NHANES] Answer Date Recorded In a typical week, how many times do you talk on the phone with family, friends, or neighbors? More than three times a week 11/15/2024 How often do you get togethe r with friends or relatives? More than three times a week 11/15/2024 How often do you attend chur ch or samaritan services? 1 to 4 times per year 11/15/2024 Do you belong to any clubs o r organizations such as anglican groups, unions, fraternal or athletic groups, or school groups? Yes 11/15/2024 How often do you attend meet ings of the clubs or organizations you belong to? Never 11/15/2024 Are you , , di vorced, , never , or living with a partner? 11/15/2024 Overall Financial Resource Strain (CARDIA) Answe r Date Recorded How hard is it for you to pa y for the very basics like food, housing, medical care, and heating? Not very hard 11/15/2024 Hunger Vital Sign Answer Date Recorded Within the past 12 months, y ou worried that your food would run out before you got the money to buy more. Never true 11/15/19 25 Within the past 12 months, t he food you bought just didn't last and you didn't have money to get more. Never true 11/15/2024 PRAPARE - Transportation Answer Date Re corded In the past 12 months, has l ack of transportation kept you from medical appointments or from getting medications? No 10/24 In the past 12 months, has l ack of transportation kept you from meetings, work, or from getting things needed for daily living? No 11/15/2024 Housing Stability Vital Sign Answer Mikal e Recorded In the last 12 months, was t here a time when you were not able to pay the mortgage or rent on time? No 11/15/2024 In the past 12 months, how m any times have you moved where you were living? 0 11/15/2024 At any time in the past 12 [facility], were you homeless or living in a mcc (including now)? No 11/15/2024 Personal Safety Answer Date Recorded Have you ever been in or are you currently in a harmful physical or emotional relationship or is someone making you feel afraid or unsafe? Denies 11/14/2024 Comments Unknown Sex and Gender Information Value Date Recorded Sex Assigned at Not on file Legal Sex Female 1:22 PM ENDOSCOPY TECHNICAN Gender Identity Not on file Sexual Orientation Not on file Obstetrics History Last Filed Vital Signs Vital Sign Reading Time Taken Comments Blood Pressure 108/66 10/07/2024 12:31 PM ENDOSCOPY TECHNICAN Pulse 69 10/07/2024 12:31 PM ENDOSCOPY TECHNICAN Temperature 36.4 ??C (97.5 ??F) 10/07/2024 12:[address] Respiratory Rate 18 10/07/2024 12:31 PM ENDOSCOPY TECHNICAN Oxygen Saturation 98% 10/07/2024 12:31 PM ENDOSCOPY TECHNICAN Inhaled Oxygen Concentration - - Weight 78.9 kg (174 lb) 11/14/2024 1:07 PM ENDOSCOPY TECHNICAN Height 165.1 cm (5' 5 ) 11/14/2024 1:07 PM ENDOSCOPY TECHNICAN Body Mass Index 28.96 11/14/2024 1:07 PM ENDOSCOPY TECHNICAN Plan of Treatment Health Maintenance Due Date Last Done Comments Cervical Cancer Screening 1965 Colon Cancer Screening-Colonoscopy 1965 Depression Screening 1963 Hepatitis C Screening 1963 Hepatitis B Screening 1981 Regular Well Visit/Exam 18-64 1981 Pneumococcal vaccine <65 (2 of 2 - PCV) 02/14/2020 02/13/2019 Breast Cancer Screening-Mammogram 04/13/2022 021, 04/13/2021 Covid-19 Vaccine ( season) 2024 08/27/2021, 12/30/2020, 12/09/2020 Influenza Vaccine (#1) 2024 08/27/2021, 2019 DTaP/Tdap/Td Vaccine (2 - Td or Tdap) 02/13/2029 Zoster Vaccine Completed 08/28/2020, 07/16/2020 Procedures Procedure Name Priority Date/Time Associated Diagnosis Comments ECG 12-LEAD Routine 11/14/2024 3:29 PM ENDOSCOPY TECHNICAN Multiple myeloma not having achieved remission (CMS/HCC) (HCC) XR CHEST PA LATERAL 2 VIEWS Schedule Routine, Read Routine (OP Routine) 11/14/2024 3:12 PM ENDOSCOPY TECHNICAN Multiple myeloma not having achieved remission (CMS/HCC) (HCC) EGFR Routine 11/14/2024 10:50 AM ENDOSCOPY TECHNICAN Multiple myeloma not having achieved remission (CMS/HCC) (HCC) DIFFERENTIAL AUTO Routine 11/14/2024 10: 50 AM ENDOSCOPY TECHNICAN Multiple myeloma not having achieved remission (CMS/HCC) (HCC) CBC WITH AUTO DIFFERENTIAL Routine 11/14/2024 10:50 AM ENDOSCOPY TECHNICAN Multiple myeloma not having achieved remission (CMS/HCC) (HCC) COMPREHENSIVE METABOLIC PANEL Routine 11/14/2024 10:50 AM ENDOSCOPY TECHNICAN Multiple myeloma not having achieved remission (CMS/HCC) (HCC) IGA Routine 11/14/2024 10:50 AM ENDOSCOPY TECHNICAN Multiple myeloma not having achieved remission (CMS/HCC) (HCC) IGG Routine 11/14/2024 10:50 AM ENDOSCOPY TECHNICAN Multiple myeloma not having achieved remission (CMS/HCC) (HCC) IGM Routine 11/14/2024 10:50 AM ENDOSCOPY TECHNICAN Multiple myeloma not having achieved remission (CMS/HCC) (HCC) IMMUNOGLOBULIN FREE LIGHT CHAINS Routine 11/14/2024 10:50 AM ENDOSCOPY TECHNICAN Multiple myeloma not having achieved remission (CMS/HCC) (HCC) LACTATE DEHYDROGENASE Routine 11/14/2024 10:50 AM ENDOSCOPY TECHNICAN Multiple myeloma not having achieved remission (CMS/HCC) (HCC) PROTEIN ELECTROPHORESIS, WITH REFLEX, SERUM Routine 11/14/2024 10:50 AM ENDOSCOPY TECHNICAN Multiple myeloma not having achieved remission (CMS/HCC) (HCC) IMMUNOTYPING Routine 11/14/2024 10:50 AM ENDOSCOPY TECHNICAN Multiple myeloma not having achieved remission (CMS/HCC) (HCC) PROTIME-INR Routine 11/14/2024 10:50 AM ENDOSCOPY TECHNICAN Multiple myeloma not having achieved remission (CMS/HCC) (HCC) APTT Routine 11/14/2024 10:50 AM ENDOSCOPY TECHNICAN Multiple myeloma not having achieved remission (CMS/HCC) (HCC) SICKLE CELL SCREEN Routine 11/14/2024 10 :50 AM ENDOSCOPY TECHNICAN Multiple myeloma not having achieved remission (CMS/HCC) (HCC) TRIGLYCERIDES Routine 11/14/2024 10:50 AM ENDOSCOPY TECHNICAN Multiple myeloma not having achieved remission (CMS/HCC) (HCC) TYPE AND SCREEN Routine 11/14/2024 10:50 AM ENDOSCOPY TECHNICAN Multiple myeloma not having achieved remission (CMS/HCC) (HCC) URIC ACID Routine 11/14/2024 10:50 AM ENDOSCOPY TECHNICAN Multiple myeloma not having achieved remission (CMS/HCC) (HCC) BMT DONOR EVALUATION Routine 11/14/2024 10:50 AM ENDOSCOPY TECHNICAN Multiple myeloma not having achieved remission (CMS/HCC) (HCC) MAGNESIUM Routine 11/14/2024 10:50 AM ENDOSCOPY TECHNICAN Multiple myeloma not having achieved remission (CMS/HCC) (HCC) HSV 1 ANTIBODY, IGG Routine 11/14/2024 1 0:50 AM ENDOSCOPY TECHNICAN Multiple myeloma not having achieved remission (CMS/HCC) (HCC) HSV 2 ANTIBODY, IGG Routine 11/14/2024 1 0:50 AM ENDOSCOPY TECHNICAN Multiple myeloma not having achieved remission (CMS/HCC) (HCC) TRANSTHORACIC ECHO (TTE) COMPLETE W DOPPLER/CF W CONTRAST Routine 11/14/2024 10:40 AM ENDOSCOPY TECHNICAN Multiple myeloma not having achieved remission (CMS/HCC) (HCC) PULMONARY FUNCTION TEST (PFT) Routine 11/14/2024 7:49 AM ENDOSCOPY TECHNICAN Multiple myeloma not having achieved remission (CMS/HCC) (HCC) SCAN - PATHOLOGY 10/09/2024 12:3 6 PM ENDOSCOPY TECHNICAN ANTIBODY IDENTIFICATION Timed 10/07/2024 3:12 PM ENDOSCOPY TECHNICAN B K ANTIGEN TYPE Routine 10/07/2024 12:1 4 PM ENDOSCOPY TECHNICAN IMMUNOTYPING STAT 10/07/2024 12:14 PM ENDOSCOPY TECHNICAN Multiple myeloma not having achieved remission (CMS/HCC) (HCC) EGFR STAT 10/07/2024 12:14 PM ENDOSCOPY TECHNICAN Multiple myeloma not having achieved remission (CMS/HCC) (HCC) DIFFERENTIAL AUTO STAT 10/07/2024 12: 14 PM ENDOSCOPY TECHNICAN Multiple myeloma not having achieved remission (CMS/HCC) (HCC) BETA 2 MICROGLOBULIN SERUM STAT 10/07/2024 12:14 PM ENDOSCOPY TECHNICAN Multiple myeloma not having achieved remission (CMS/HCC) (HCC) CBC WITH AUTO DIFFERENTIAL STAT 10/07/2024 12:14 PM ENDOSCOPY TECHNICAN Multiple myeloma not having achieved remission (CMS/HCC) (HCC) COMPREHENSIVE METABOLIC PANEL STAT 10/07/2024 12:14 PM ENDOSCOPY TECHNICAN Multiple myeloma not having achieved remission (CMS/HCC) (HCC) IGA STAT 10/07/2024 12:14 PM ENDOSCOPY TECHNICAN Multiple myeloma not having achieved remission (CMS/HCC) (HCC) IGG STAT 10/07/2024 12:14 PM ENDOSCOPY TECHNICAN Multiple myeloma not having achieved remission (CMS/HCC) (HCC) IGM STAT 10/07/2024 12:14 PM ENDOSCOPY TECHNICAN Multiple myeloma not having achieved remission (CMS/HCC) (HCC) IMMUNOGLOBULIN FREE LIGHT CHAINS STAT 10/07/2024 12:14 PM ENDOSCOPY TECHNICAN Multiple myeloma not having achieved remission (CMS/HCC) (HCC) LACTATE DEHYDROGENASE STAT 10/07/2024 12:14 PM ENDOSCOPY TECHNICAN Multiple myeloma not having achieved remission (CMS/HCC) (HCC) PROTEIN ELECTROPHORESIS, WITH REFLEX, SERUM STAT 10/07/2024 12:14 PM ENDOSCOPY TECHNICAN Multiple myeloma not having achieved remission (CMS/HCC) (HCC) LIPID PANEL Routine 10/07/2024 12:14 PM ENDOSCOPY TECHNICAN Multiple myeloma not having achieved remission (CMS/HCC) (HCC) MAGNESIUM Routine 10/07/2024 12:14 PM ENDOSCOPY TECHNICAN Multiple myeloma not having achieved remission (CMS/HCC) (HCC) PROTIME-INR Routine 10/07/2024 12:14 PM ENDOSCOPY TECHNICAN Multiple myeloma not having achieved remission (CMS/HCC) (HCC) APTT Routine 10/07/2024 12:14 PM ENDOSCOPY TECHNICAN Multiple myeloma not having achieved remission (CMS/HCC) (HCC) SICKLE CELL SCREEN Routine 10/07/2024 12 :14 PM ENDOSCOPY TECHNICAN Multiple myeloma not having achieved remission (CMS/HCC) (HCC) TYPE AND SCREEN Routine 10/07/2024 12:14 PM ENDOSCOPY TECHNICAN Multiple myeloma not having achieved remission (CMS/HCC) (HCC) URIC ACID Routine 10/07/2024 12:14 PM ENDOSCOPY TECHNICAN Multiple myeloma not having achieved remission (CMS/HCC) (HCC) BMT DONOR EVALUATION Routine 10/07/2024 12:14 PM ENDOSCOPY TECHNICAN Multiple myeloma not having achieved remission (CMS/HCC) (HCC) HEMOGLOBIN A1C Routine 10/07/2024 12:14 PM ENDOSCOPY TECHNICAN Multiple myeloma not having achieved remission (CMS/HCC) (HCC) HSV 1 ANTIBODY, IGG Routine 10/07/2024 1 2:14 PM ENDOSCOPY TECHNICAN Multiple myeloma not having achieved remission (CMS/HCC) (HCC) HSV 2 ANTIBODY, IGG Routine 10/07/2024 1 2:14 PM ENDOSCOPY TECHNICAN Multiple myeloma not having achieved remission (CMS/HCC) (HCC) from Last 3 Months Results * ECG 12 lead (11/14/2024 3:29 PM ENDOSCOPY TECHNICAN) Ventricular Rate EKG/Min 67 BPM [facility] Atrial Rate 67 BPM [facility] WA-Interval (MSEC) 108 ms [facility] QRS-Interval (MSEC) 70 ms [facility] QT-Interval (MSEC) 490 ms [facility] QTc 517 ms [facility] P Maybeury 54 degrees [facility] R Maybeury 22 degrees [facility] T Maybeury 54 degrees [facility] Diagnosis Sinus rhythm with Premature supraventricular complexes Possible Left atrial enlargement Prolonged QT Abnormal ECG No previous ECGs available Confirmed by Tae Sauceda MD ([id number]) on 11/16/2024 12:13:39 PM [facility] 11/14/2024 3:29 PM ENDOSCOPY TECHNICAN 11/16/2024 12:13 PM ENDOSCOPY TECHNICAN us Toby Soto MD ECG ORDERABLES Final R esult [facility] * XR Chest Pa Lateral 2 Views (11/14/2024 3:12 PM ENDOSCOPY TECHNICAN) Anatomical Region Laterality Modality Body, Chest N/A Computed Radiogr aphy 11/14/2024 3:59 PM ENDOSCOPY TECHNICAN Impressions 11/14/2024 9:26 PM ENDOSCOPY TECHNICAN No prior radiograph is available for comparison. No pleural effusion, pneumothorax, or pulmonary consolidation. Cardiomediastinal silhouette is normal. ??Chronic vertebral compression deformities in thoracic spine. ??Expansile appearing left rib lesion in the setting of multiple myeloma. Dictated by: Lilli Banegas M.D. The radiology attending physician has personally reviewed this study, and had reviewed and/or edited this written report and agrees with it. Electronically signed by: Henrique Burks M.D. Narrative 11/14/2024 9:26 PM ENDOSCOPY TECHNICAN EXAMINATION: 2 view chest radiograph Procedure Note Henrique Burks MD PhD - 11/14/2024 EXAMINATION: 2 view chest radiograph IMPRESSION: No prior radiograph is available for comparison. No pleural effusion, pneumothorax, or pulmonary consolidation. Cardiomediastinal silhouette is normal. Chronic vertebral compression deformities in thoracic spine. Expansile appearing left rib lesion in the setting of multiple myeloma. Dictated by: Lilli Banegas M.D. The radiology attending physician has personally reviewed this study, and had reviewed and/or edited this written report and agrees with it. Electronically signed by: Henrique Burks M.D. us Toby Soto MD IMG XR PROCEDURES Final Result * Immunotyping, serum (11/14/2024 10:50 AM ENDOSCOPY TECHNICAN) Immunosubtraction Please see comment Comment: IGG KAPPA PARAPROTEIN Reviewed and signed by Amol Hopkins MD 11/15/2024 Blood 11/14/2024 10:5 0 AM ENDOSCOPY TECHNICAN 11/14/2024 12:55 PM ENDOSCOPY TECHNICAN us Toby Soto MD LAB BLOOD ORDERABLES Fi nal Result [facility] Department [place] [address] * eGFR (11/14/2024 10:50 AM ENDOSCOPY TECHNICAN) eGFR 89 >=60 mL/min/1. 73 m2 Comment: Interpretive Data Reference Interval Normal ?>/= 90 mL/min/1.73m2 Mildly decreased* ? 60 - 89 mL/min/1.73m2 Mildly to moderately decreased ?45 - 59 mL/min/1.73m2 Moderately to severely decreased ??30 - 44 mL/min/1.73m2 Severely decreased ?15 - 29 mL/min/1.73m2 Kidney Failure ?< 15 ??mL/min/1.73m2 *Relative to young adult level Estimated glomerular filtration rate is determined by the 2020 CKD-EPI equation recommended by the National Kidney Foundation (A Unifying Approach to GFR Estimation: Recommendations of the NKF-ASK Task Force on Reassessing the Inclusion of Race in Diagnosing Kidney Disease, JASN 2020). The CKD-EPI equation should not be used for patients with unstable renal function and has not been validated in children and those over 70. Current interpretive data was last reviewed 2021. Blood 11/14/2024 10:5 0 AM ENDOSCOPY TECHNICAN 11/14/2024 11:03 AM ENDOSCOPY TECHNICAN us Toby Soto MD LAB BLOOD ORDERABLES Fi nal Result [facility] Department [place] [address] * (ABNORMAL) Differential, auto (11/14/2024 10:50 AM ENDOSCOPY TECHNICAN) Neutrophil abs 2.7 1.5 - 6.5 K/cumm Comment:Testing performed by : [facility], [address] [place] [phone] Lymphocyte abs 0.5(L) 0.8 - 3.3 K/cumm [facility] Comment:Testing performed by : [facility], [address] [place] [phone] Monocyte abs 0.9(H) 0.2 - 0.8 K/cumm [facility] Comment:Testing performed by : [facility], [address] [place] [address] Eosinophil abs 0.0 0.0 - 0.5 K/cumm [facility] Comment:Testing performed by : [facility], [address] [place] [address] Basophil abs 0.0 0.0 - 0.1 K/cumm [facility] Comment:Testing performed by : [facility], [address] [place] [address] Neutrophil pct 65.6 % [facility] Comment: Interpretive Data Percent cell count reference ranges are not reported, since discordance with absolute values may lead to misinterpretation of CBC data. Current Interpretive Data was last revised on 2018. Testing performed by: [facility], [address] [place] [phone] Lymphocyte pct 13.3 % LEMUEL BORJAS Comment: Interpretive Data Percent cell count reference ranges are not reported, since discordance with absolute values may lead to misinterpretation of CBC data. Current Interpretive Data was last revised on 2018. Testing performed by: [facility], [address] [place] [phone] Monocyte pct 20.9 % CERROZ BORJAS Comment: Interpretive Data Percent cell count reference ranges are not reported, since discordance with absolute values may lead to misinterpretation of CBC data. Current Interpretive Data was last revised on 2018. Testing performed by: [facility], [address] [place] [phone] Eosinophil pct 0.0 % LEMUEL BORJAS Comment: Interpretive Data Percent cell count reference ranges are not reported, since discordance with absolute values may lead to misinterpretation of CBC data. Current Interpretive Data was last revised on 2018. Testing performed by: [facility], [address] [place] [phone] Basophil pct 0.2 % LEMUEL BORJAS Comment: Interpretive Data Percent cell count reference ranges are not reported, since discordance with absolute values may lead to misinterpretation of CBC data. Current Interpretive Data was last revised on 2018. Testing performed by: [facility], [address] [place] [phone] Blood 11/14/2024 10:5 0 AM ENDOSCOPY TECHNICAN 11/14/2024 11:01 AM ENDOSCOPY TECHNICAN us Toby Soto MD LAB BLOOD ORDERABLES Fi nal Result [facility] Department [place] [address] * BMT donor evaluation (11/14/2024 10:50 AM ENDOSCOPY TECHNICAN) Pathologist [facility] Hep B surf Ag, donor Negative Negative [facility] Hep B core Ab, donor Negative Negative [facility] Hep C Ab, donor Negative Negative [facility] HIV 1-2 Ab, donor Negative Negative [facility] HTLV I/II Ab, donor Negative Negative [facility] Syphilis testing, donor Negative Negative [facility] HIV KIM, donor Negative Negative [facility] HCV KIM, donor Negative Negative [facility] HBV KIM, donor Negative Negative [facility] WNV KIM, donor Negative Negative [facility] CMV testing, donor Negative Negative [employer] [facility] [employer] Comment: Interpretive Data Testing performed by [facility] [place] [address] [facility] [id number] ??Panel consists of testing for Hepatitis B, Hepatitis C, HIV, HTLV, Syphilis, CMV, West Nile Virus and Chagas disease.Current interpretive data was last revised on 2022. Chagas testing, donor Negative Negative [facility] Blood 11/14/2024 10:5 0 AM ENDOSCOPY TECHNICAN 11/14/2024 12:32 PM ENDOSCOPY TECHNICAN us Toby Soto MD LAB BLOOD ORDERABLES Fi nal Result [facility] Department [place] [address] * (ABNORMAL) Immunoglobulin free light chains (11/14/2024 10:50 AM ENDOSCOPY TECHNICAN) [facility] [place]/Lambda ratio [facility] 1.25 0.26 - 1.65 Comment: Interpretive Data The Binding Site FreeLite assay procedure was used. Results from different manufacturers or methods may not be comparable. Serial testing should be performed using the same methods and instrumentation. Current Interpretive Data was last revised on 2023. [place] free light chain [facility] 0.66 0.33 - 1.94 mg/dL [facility] Comment: Interpretive Data The Binding Site FreeLite assay procedure was used. Results from different manufacturers or methods may not be comparable. Serial testing should be performed using the same methods and instrumentation. Current Interpretive Data was last revised on 2023. Lambda free light chain [facility] 0.53(L) 0.57 - 2.63 mg/dL LEMUEL BORJAS Comment: Interpretive Data The Binding Site FreeLite assay procedure was used. Results from different manufacturers or methods may not be comparable. Serial testing should be performed using the same methods and instrumentation. Current Interpretive Data was last revised on 2023. Blood 11/14/2024 10:5 0 AM ENDOSCOPY TECHNICAN 11/14/2024 12:55 PM ENDOSCOPY TECHNICAN us Toby Soto MD LAB BLOOD ORDERABLES Fi nal Result LEMUEL BORJAS [facility] Department [place] [address] * (ABNORMAL) CBC with auto differential (11/14/2024 10:50 AM ENDOSCOPY TECHNICAN) WBC 4.1 3.8 - 9.9 K/cumm Comment:Testing performed by : [facility], [address] [place] [phone] Hgb 10.3(L) 11.9 - 15.5 g/dL CERROZ BJ Comment:Testing performed by : [facility], [address] [place] [phone] Hct 31.5(L) 35.6 - 45.5 % CERROZ BJ Comment:Testing performed by : [facility], [address] [place] [phone] Plt 102(L) 150 - 400 K/cumm CERROZ BJ Comment:Testing performed by : [facility], [address] [place] [phone] MPV 12.9(H) 6.8 - 10.4 fL CERROZ BJ Comment:Testing performed by : [facility], [address] [place] [phone] RBC 3.39(L) 3.90 - 5.20 M/cumm LEMUEL BJ Comment:Testing performed by : [facility], [address] [place], [place] [phone] MCV 93.1 81.3 - 96.4 fL LEMUEL [facility] Comment:Testing performed by : [facility], [address] [place], [place] [phone] MCH 30.4 27.1 - 33.3 pg LEMUEL [facility] Comment:Testing performed by : [facility], [address] [place], [place] [phone] MCHC 32.6 32.3 - 35.7 g/dL LEMUEL [facility] Comment:Testing performed by : [facility], [address] [place], [place] [phone] RDW CV 19.8(H) 11.1 - 14.9 % LEMUEL [facility] Comment:Testing performed by : [facility], [address] [place], [place] [phone] NRBC abs 0.00 0.00 - 0.01 K/cumm LEMUEL [facility] Comment:Testing performed by : [facility], [address] [place], [place] [phone] Blood 11/14/2024 10:5 0 AM ENDOSCOPY TECHNICAN 11/14/2024 11:01 AM ENDOSCOPY TECHNICAN Toby Soto MD LAB BLOOD ORDERABLES Fi nal Result [facility] Department [place] [address] * (ABNORMAL) HSV 2 IgG Antibody Blood (11/14/2024 10:50 AM ENDOSCOPY TECHNICAN) HSV 2 IgG Equivocal (A) Nonreactive Comment: Interpretive Data 1. Nonreactive: No detectable IgG antibody to HSV-2. 2. Equivocal: Presence or absence of detectable antibodies to HSV-2 cannot be determined and the test should be repeated. 3. Reactive: Indicates presence of detectable IgG antibody to HSV-2. Current interpretive data was last revised on 2023. Blood 11/14/2024 10:5 0 AM ENDOSCOPY TECHNICAN 11/14/2024 12:55 PM ENDOSCOPY TECHNICAN Toby Soto MD LAB MICROBIOLOGY - GENE RAL ORDERABLES Final Result Performing Organization Address City/[facility] Co de Phone Number LEMUEL [facility] [place] [address] * (ABNORMAL) HSV 1 IgG Antibody Blood (11/14/2024 10:50 AM ENDOSCOPY TECHNICAN) Pathologist [facility] HSV 1 IgG Reactive( A) Nonreactive Comment: Interpretive Data 1. Nonreactive: No detectable IgG antibody to HSV-1. 2. Equivocal: Presence or absence of detectable antibodies to HSV-1 cannot be determined and the test should be repeated. 3. Reactive: Indicates presence of detectable IgG antibody to HSV-1. Current interpretive data was last revised on 2017. Blood 11/14/2024 10:5 0 AM ENDOSCOPY TECHNICAN 11/14/2024 12:55 PM ENDOSCOPY TECHNICAN Toby Soto MD LAB MICROBIOLOGY - GENE RAL ORDERABLES Final Result Performing Organization Address [facility] de Phone Number LEMUEL [facility] [place] [address] * Sickle cell screen (11/14/2024 10:50 AM ENDOSCOPY TECHNICAN) [facility] Sickle cell, solubility Negative Negative Comment: Interpretive Data A positive sickle cell screening test is not sufficient to diagnose the presence of hemoglobin S since other rare hemoglobins may produce a positive turbidity test and false positive results may occur in the presence of dysglobulinemias. Recommend confirmation of a positive test result by ordering hemoglobin analysis performed by capillary electrophoresis if clinically indicated. Current interpretive data was last revised on 2019. Blood 11/14/2024 10:5 0 AM ENDOSCOPY TECHNICAN 11/14/2024 12:55 PM ENDOSCOPY TECHNICAN Toby Soto MD LAB BLOOD ORDERABLES Fi nal Result Performing Organization Address City/[facility] Co de Phone Number LEMUEL [facility] [place] [address] * aPTT (11/14/2024 10:50 AM ENDOSCOPY TECHNICAN) Pathologist [facility] aPTT 28 28 - 38 sec Comment: Interpretive Data Heparin therapeutic range: 66.0 - 100.0 seconds. Range based on correlation with therapeutic heparin activity range of 0.3 - 0.7 Units/mL. Current interpretive data was last revised on 2023. Blood 11/14/2024 10:5 0 AM ENDOSCOPY TECHNICAN 11/14/2024 11:14 AM ENDOSCOPY TECHNICAN Toby Soto MD LAB BLOOD ORDERABLES Fi nal Result Performing Organization Address [facility] [place] [address] * (ABNORMAL) Protime-INR (11/14/2024 10:50 AM ENDOSCOPY TECHNICAN) Pathologist [facility] PT 15.6(H) 9.7 - 13.0 sec INR 1.43(H) 0.90 - 1.20 [facility] Comment: Interpretive data Oral anticoagulant therapeutic ranges: Venous thromboembolism prophylaxis or treatment: 2.0-3.0 CARDIOLOGY Standard range: 2.0-3.0 High-intensity range: 2.5-3.5 Refer to indication-specific guidelines for appropriate target ranges for prosthetic heart valve replacement. Current interpretive data was last revised on 2019. Blood 11/14/2024 10:5 0 AM ENDOSCOPY TECHNICAN 11/14/2024 11:14 AM ENDOSCOPY TECHNICAN Toby Soto MD LAB BLOOD ORDERABLES Fi nal Result Performing Organization Address [facility] [place] [address] * (ABNORMAL) Type and screen (11/14/2024 10:50 AM ENDOSCOPY TECHNICAN) Pathologist [facility] Jabari, indirect Positive(A) ABO Rh A Positive [employer] [facility] [facility] Blood 11/14/2024 10:5 0 AM ENDOSCOPY TECHNICAN 11/14/2024 11:16 AM ENDOSCOPY TECHNICAN Narrative LEMUEL [facility] - 11/14/2024 12:20 PM ENDOSCOPY TECHNICAN Has the patient had Daratumumab or Isatuximab in the past 6 months?->Unknown Toby Soto MD LAB BLOOD BANK TEST ORD ERABLES Final Result Performing Organization Address [facility] Co de Phone Number [facility] [place] [address] * Uric acid (11/14/2024 10:50 AM ENDOSCOPY TECHNICAN) Uric acid 3.0 2.5 - 7.0 mg/dL Blood 11/14/2024 10:5 0 AM ENDOSCOPY TECHNICAN 11/14/2024 11:03 AM ENDOSCOPY TECHNICAN Toby Soto MD LAB BLOOD ORDERABLES Fi nal Result Performing Organization Address [facility] de Phone Number [facility] [place] [address] * (ABNORMAL) Triglycerides (11/14/2024 10:50 AM ENDOSCOPY TECHNICAN) Triglycerides 220(H) <=149 mg/dL Comment: Interpretive Data Ages < or = 9 years ??Acceptable: ? <75 mg/dL ??Borderline high: ??75-99 mg/dL ??High: ? >or= 100 mg/dL Ages 10 to 20 years ??Acceptable: ? <90 mg/dL ??Borderline high: ??90-129 mg/dL ??High: ? >or= 130 mg/dL Ages > or = 20 years ??Desirable: ?<150 mg/dL ??Borderline high: ??150-199 mg/dL ??High: ? 200-499 mg/dL ?Very high: ?? >or= 499 mg/dL Literature References: 1. Expert Panel on Integrated Guidelines for Cardiovascular Health and Risk Reduction in Children and Adolescents. Pediatrics 2011;128:S213 2. NCEP Expert Panel. Circulation 2004;110:227 Current Interpretive Data was last revised on 2018. Blood 11/14/2024 10:5 0 AM ENDOSCOPY TECHNICAN 11/14/2024 11:03 AM ENDOSCOPY TECHNICAN Toby Soto MD LAB BLOOD ORDERABLES Fi nal Result Performing Organization Address [facility] Co de Phone Number [facility] Department [place] [address] * (ABNORMAL) Protein electrophoresis with reflex, serum (11/14/2024 10:50 AM ENDOSCOPY TECHNICAN) Protein, sr 6.3 6.2 - 8.2 g/dL Albumin 3.9 3.2 - 5.0 g/dL [facility] Alpha-1 globulin 0.4 0.2 - 0.4 g/dL [facility] Alpha-2 globulin 0.9 0.5 - 1.0 g/dL [facility] Beta-1 globulin 0.4 0.3 - 0.6 g/dL [facility] Beta-2 globulin 0.3 0.2 - 0.6 g/dL [facility] Gamma globulin 0.4(L) 0.5 - 1.7 g/dL [facility] Rstr Pk Gamma 0.1(H) 0.0 - 0.0 g/dL [facility] SPEP interp Please see comment [facility] Comment: Possible abnormal restricted peak in gamma region Decreased gamma globulins Electrophoretic pattern appears different from previous sample 10/09/2024 See immunotyping for further information Reviewed and signed by Amol Hopkins MD 11/15/2024 Blood 11/14/2024 10:5 0 AM ENDOSCOPY TECHNICAN 11/14/2024 12:55 PM ENDOSCOPY TECHNICAN Toby Soto MD LAB BLOOD ORDERABLES Fi nal Result Performing Organization Address City/[facility] Co de Phone Number [facility] [place] [address] * Magnesium (11/14/2024 10:50 AM ENDOSCOPY TECHNICAN) Pathologist [facility] Magnesium 1.9 1.4 - 2.5 mg/dL Blood 11/14/2024 10:5 0 AM ENDOSCOPY TECHNICAN 11/14/2024 11:03 AM ENDOSCOPY TECHNICAN us Toby Soto MD LAB BLOOD ORDERABLES Fi nal Result Performing Organization Address [facility] [place] [address] * (ABNORMAL) Lactate dehydrogenase (LD) (11/14/2024 10:50 AM ENDOSCOPY TECHNICAN) Pathologist [facility] Lactate dehydrogenase (LDH) 263(H) 100 - 250 Units/L Comment:Hemolyzed; result ma y be falsely elevated Blood 11/14/2024 10:5 0 AM ENDOSCOPY TECHNICAN 11/14/2024 11:03 AM ENDOSCOPY TECHNICAN Toby Soto MD LAB BLOOD ORDERABLES Fi nal Result Performing Organization Address [facility] Co de Phone Number [facility] [place] [address] * (ABNORMAL) IgA (11/14/2024 10:50 AM ENDOSCOPY TECHNICAN) Pathologist [facility] Immunoglobulin A <50(L) 70 - 400 mg/dL Blood 11/14/2024 10:5 0 AM ENDOSCOPY TECHNICAN 11/14/2024 11:55 AM ENDOSCOPY TECHNICAN Toby Soto MD LAB BLOOD ORDERABLES Fi nal Result Performing Organization Address City/[facility] Co de Phone Number [facility] Department [place] [address] * (ABNORMAL) IgM (11/14/2024 10:50 AM ENDOSCOPY TECHNICAN) [facility] Immunoglobulin M <25(L) 40 - 230 mg/dL Blood 11/14/2024 10:5 0 AM ENDOSCOPY TECHNICAN 11/14/2024 11:55 AM ENDOSCOPY TECHNICAN Toby Soto MD LAB BLOOD ORDERABLES Fi nal Result Performing Organization Address City/[facility] Co de Phone Number [facility] Department [place] [address] * (ABNORMAL) IgG (11/14/2024 10:50 AM ENDOSCOPY TECHNICAN) [facility] Immunoglobulin G 500(L) 700 - 1,600 mg/dL Blood 11/14/2024 10:5 0 AM ENDOSCOPY TECHNICAN 11/14/2024 11:55 AM ENDOSCOPY TECHNICAN Toby Soto MD LAB BLOOD ORDERABLES Fi nal Result Performing Organization Address [facility] de Phone Number [facility] [place] [address] * (ABNORMAL) Comprehensive metabolic panel (11/14/2024 10:50 AM ENDOSCOPY TECHNICAN) [facility] Sodium 142 135 - 145 mmol/L Potassium, pl 4.4 3.3 - 4.9 mmol/L [facility] Comment:Hemolyzed; Potassium value may be falsely elevated by as much as 0.3-0.5 mmol/L. Suggest redraw and reanalysis. Chloride 109 97 - 110 mmol/L [facility] CO2 23 22 - 32 mmol/L [facility] Anion gap 10 2 - 15 mmol/L [facility] BUN 21 6 - 25 mg/dL [facility] Creatinine 0.76 0.60 - 1.10 mg/dL [facility] Glucose 84 70 - 199 mg/dL [facility] Comment: Interpretive Data Fasting glucose >/= 126 mg/dl is diagnostic for diabetes. ?? Fasting is defined as no caloric intake for at least 8 hours. Fasting glucose between 100 mg/dl to 125 mg/dl is diagnostic of prediabetes. In a patient with classic symptoms of hyperglycemia or hyperglycemic crisis, a random glucose >/= 200 mg/dl is diagnostic for diabetes. In the absence of unequivocal hyperglycemia, results should be confirmed by repeat testing. The classification and Diagnosis of Diabetes Diabetes Care 2021; 46: S19-S40. Current interpretive data was last revised 2022. Calcium 6.9(L) 8.5 - 10.3 mg/dL [facility] Bilirubin, total 0.2 0.1 - 1.2 mg/dL [facility] Protein, pl 6.6 6.5 - 8.5 g/dL [facility] Albumin 3.9 3.5 - 5.0 g/dL [facility] Alk phos 92 40 - 130 Units/L [facility] ALT 13 7 - 45 Units/L [facility] AST 20 10 - 45 Units/L [facility] Comment:Hemolyzed; result ma y be falsely elevated Blood 11/14/2024 10:5 0 AM ENDOSCOPY TECHNICAN 11/14/2024 11:03 AM ENDOSCOPY TECHNICAN us Toby Soto MD LAB BLOOD ORDERABLES Fi nal Result [facility] Department [place] [address] * TRANSTHORACIC ECHO (TTE) COMPLETE W DOPPLER/CF W CONTRAST (11/14/2024 10:40 AM ENDOSCOPY TECHNICAN) LV EF % CONS SCIMAGE Anatomical Region Laterality Modality Ultrasound 11/14/2024 9:36 AM ENDOSCOPY TECHNICAN Narrative 11/14/2024 3:08 PM ENDOSCOPY TECHNICAN [facility] [place] [address] Transthoracic Echocardiographic Report Patient Name: DENISE MCINTOSH ?? : 1965 (59y 4m) ??Gender: F Study Date: 11/14/2024 09:36:40 AM Ht(Inch): 65 ??Wt(Lb): 175.05 ??BSA: 1.91 Licensed Mental Health Professional: Carleen Ureña RDCS ??Location: [facility] Order Provider: TOBY SOTO Heart Rate: 70 ??BMI: 29.13 ??BP: 123 / 53 Quality: The study images were of technically good quality. Ref Provider: TOBY SOTO ?? PROCEDURES: Echocardiographic Report: ([id number], [id number], [id number]) Transthoracic complete echo with strain imaging and contrast, 2D, spectral and tissue Doppler, color flow Doppler, M- mode. Contrast: 0.4 ml Optison Administered, (2.6 ml wasted). ?? INDICATIONS: C90.00 Multiple myeloma not having achieved remission. ?? MEASUREMENTS: 2D/MM ? Value ?Range ? Doppler ?Value ? Range LVIDd 2D ?4.91 cm ?[ 3.80 - 5.20 ] ? AV Peak Ion ?1.33 m/s ?[ 1.00 - 1.70 ] LVIDs 2D ?3.27 cm ?[ 2.20 - 3.50 ] ? AV Peak PG ? 7.08 IVSd 2D ? 1.18 cm ?[ 0.60 - 0.90 ] ? AV Mean PG ? 3.79 mmHg LVPWd 2D ?0.96 cm ?[ 0.60 - 0.90 ] ? AV VTI ? 27.44 cm LV Thickness Ratio ?1.23 ? [ 1.50 - 3.00 ] ? LVOT Peak Ion ?1.09 m/s ?[ 0.70 - 1.10 ] LV FS 2D ?33.46 % ?[ 27.00 - 45.00 ] ? LVOT Peak PG ? 4.75 LV Mass 2D ?197.44 g ? LVOT Mean PG ? 2.75 mmHg LV Mass Index 2D ?103.37 g/m2 ?LVOT VTI ? 24.67 cm RWT ? 0.39 ? LVOT Diam ?1.94 cm LV EDV 2D ? 113.35 ? ALTON VTI ?2.66 cm2 LV ESV 2D ? 43.17 ?ALTON Vmax ? 2.42 cm2 LV EDV Index ?49.38 ml/m2 ?LVOT/AV VTI ?0.90 - Dimensionless index (DVI) EDV Mod 2C ?85.35 ml ? [ 41.00 - 133.00 ] ?AI Peak Ion ?4.12 m/s EDV Mod 4C ?97.59 ml ? AI Peak PG ? 67.87 mmHg EDV Mod BP ?94.31 ml ? [ 46.00 - 106.00 ] ?AI Decel Time ?1633.32 sec ESV Mod 2C ?36.97 ml ? AI Decel Nuckolls ? 2.52 m/s2 ESV Mod 4C ?40.04 ml ? AI PHT ? 473.66 msec ESV Mod BP ?40.04 ml ? [ 14.00 - 42.00 ] ? MV E Peak Ion ?1.11 m/s ?[ 0.60 - 1.30 ] EF Mod 2C ? 57 % ? MV A Peak Ion ?1.17 m/s ?[ 1.00 - 1.20 ] EF Mod 4C ? 59 % ? MV E/A ? 0.95 ratio ?[ 0.80 - 1.50 ] EF Mod BP ? 58 % ? [ 54 - 74 ] ? MV Peak Ion ?0.62 m/s LV GLS ?-15.4 % ?MV Peak PG ? 1.54 LA Length 2C ?5.34 cm ?MV Mean PG ? 0.58 mmHg LA Length 4C ?5.47 cm ?MV VTI ? 13.45 cm LA Volume 2C ?77.6 ml ?MV Decel Time ?168.44 msec ? [ 104.00 - 258.00 ] LA Volume 4C ?90.3 ml ?Med E` Ion ? 6.84 cm/sec ? [ 8.00 - 15.00 ] LA Volume BP ?89.16 ml ? Lat E` Ion ? 9.51 cm/sec ? [ 10.00 - 15.00 ] LA Volume Index ? 46.68 ml/m2 ?Average E/E` ? 13.58 MV Annulus 2D ? 3.24 cm ?MR Peak Ion ?5.07 m/s RV Base Dimen 2D ?4.1 cm ? [ 2.5 - 4.2 ] ? MR Peak PG ? 102.82 TAPSE ? 2.08 cm ?[ 1.71 - 5.00 ] ? MV Alias Ion ? 0.37 m/s RA Area ? 13.23 cm/m2 ?[ 10.00 - 18.00 ] ? MR VTI ? 170.8 cm RA Volume ? 30.30 ml ? MR Flow ?0.21 ml/sec RA Volume Index ? 15.86 ml/m2 ?MR PISA ?0.3 cm AoR Diam 2D ? 2.81 cm ?[ 2.70 - 3.70 ] ? MR EROA ?0.0 cm2 Ao Root Index ? 1.47 cm/m2 ? PISA Regurgitant Volume ?0.0 ml Asc Ao Diam 2D ?3.18 cm ?RV S` ?12.72 cm/sec Asc Ao Index ?1.66 cm/m2 ? TR Peak Ion ?2.91 m/s ?[ 1.00 - 2.80 ] TR Peak PG ? 33.9 PV Peak Ion ?0.81 m/s ?[ 0.40 - 0.80 ] PV Peak PG ? 2.62 PV Accel Time ?173.17 msec ? [ 103.00 - 142.00 ] PV Accel Nuckolls ? 374.39 cm/sec2 PI Peak Ion ?1.76 m/s PI Peak PG ? 12.40 mmHg PI PHT ? 212.98 sec - ?? FINDINGS: Left Ventricle: Normal left ventricular cavity size based on 2D measurements. Normal left ventricular size based on volume index. Eccentric LV hypertrophy. Normal left ventricular systolic function. The Ejection Fraction (Richmond's) is measured at 58 %. The average global longitudinal strain rate is abnormal (less negative than -16%). Right Ventricle: Normal right ventricular size. Normal right ventricular systolic function. Left Atrium: Moderately dilated left atrium. Right Atrium: The right atrium is normal in size. Mitral Valve: There is mild to moderate mitral regurgitation. MV Structure Abnormalities: The peak transmitral gradient is 1.54 mmHg The mean transmitral gradient is 0.58 mmHg Aortic Valve: Mild aortic valve regurgitation. No aortic valve stenosis. Tricuspid Valve: There is mild tricuspid regurgitation. The estimated pulmonary artery systolic pressure is 35 mmHg. Pulmonic Valve: There is mild pulmonic regurgitation. Aorta: The aortic root is normal in size. The aortic root is normal in size when indexed. The ascending aorta is normal in size when indexed. ?? CONCLUSIONS: 1. Normal left ventricular cavity size based on 2D measurements. Normal left ventricular size based on volume index. Eccentric LV hypertrophy. Normal left ventricular systolic function. The Ejection Fraction (Richmond's) is measured at 58 %. The average global longitudinal strain rate is abnormal (-15.4%). 2. Normal right ventricular size. Normal right ventricular systolic function. 3. Moderately dilated left atrium. 4. The right atrium is normal in size. 5. There is mild to moderate mitral regurgitation. 6. Mild aortic valve regurgitation. No aortic valve stenosis. 7. There is mild tricuspid regurgitation. 8. There is mild pulmonic regurgitation. 9. The aortic root is normal in size. The aortic root is normal in size when indexed. ?? ATTESTATION: I have reviewed and interpreted the pertinent images and measurements of this study. I attest to the conclusions in the final report that is provided above. ?? DISCLAIMER: The study images and the final report will be retained in the patient chart by the [facility] for the legally required time period. This chart constitutes the legal record of any testing performed. Electronically Signed By: Mookie Crowell MD 11/14/2024 3:07:07 PM ENDOSCOPY TECHNICAN Electronically Signed By: Mookie Crowell MD 11/14/2024 3:07:07 PM ENDOSCOPY TECHNICAN Procedure Note Mookie Crowell MD - 11/14/2024 [facility] Cardiac [place] [address] Transthoracic Echocardiographic Report Patient Name: DENISE MCINTOSH : 1965 (59y 4m) Gender: F Study Date: 11/14/2024 09:36:40 AM Ht(Inch): 65 Wt(Lb): 175.05 BSA: 1.91 Licensed Mental Health Professional: Carleen Ureña RDCS Location: [facility] Order Provider:TOBY SOTO Heart Rate: 70 BMI: 29.13 BP: 123 / 53 Quality: The study images were oftechnically good quality. Ref Provider: TOBY SOTO PROCEDURES: Echocardiographic Report: ([id number], [id number]) Transthoracic completeecho with strain imaging and contrast, 2D, spectral and tissue Doppler, color flow Doppler,M- mode. Contrast: 0.4 ml Optison Administered, (2.6 ml wasted). INDICATIONS: C90.00 Multiple myeloma not having achieved remission. MEASUREMENTS: 2D/MM Value Range DopplerValue Range LVIDd 2D 4.91 cm [ 3.80 - 5.20 ] AV Peak Vel1.33 m/s [ 1.00 - 1.70 ] LVIDs 2D 3.27 cm [ 2.20 - 3.50 ] AV Peak PG7.08 IVSd 2D 1.18 cm [ 0.60 - 0.90 ] AV Mean PG3.79 mmHg LVPWd 2D 0.96 cm [ 0.60 - 0.90 ] AV VTI27.44 cm LV Thickness Ratio 1.23 [ 1.50 - 3.00 ] LVOT Peak Vel1.09 m/s [ 0.70 - 1.10 ] LV FS 2D 33.46 % [ 27.00 - 45.00 ] LVOT Peak PG4.75 LV Mass 2D 197.44 g LVOT Mean PG2.75 mmHg LV Mass Index 2D 103.37 g/m2 LVOT VTI24.67 cm RWT 0.39 LVOT Diam1.94 cm LV EDV 2D 113.35 ALTON VTI2.66 cm2 LV ESV 2D 43.17 ALTON Vmax2.42 cm2 LV EDV Index 49.38 ml/m2 LVOT/AV VTI0.90 - Dimensionless index (DVI) EDV Mod 2C 85.35 ml [ 41.00 - 133.00 ] AI Peak Vel4.12 m/s EDV Mod 4C 97.59 ml AI Peak PG67.87 mmHg EDV Mod BP 94.31 ml [ 46.00 - 106.00 ] AI Decel Knjp4215.32 sec ESV Mod 2C 36.97 ml AI Decel Slope2.52 m/s2 ESV Mod 4C 40.04 ml AI GAL401.66 msec ESV Mod BP 40.04 ml [ 14.00 - 42.00 ] MV E Peak Vel1.11 m/s [ 0.60 - 1.30 ] EF Mod 2C 57 % MV A Peak Vel1.17 m/s [ 1.00 - 1.20 ] EF Mod 4C 59 % MV E/A0.95 ratio [ 0.80 - 1.50 ] EF Mod BP 58 % [ 54 - 74 ] MV Peak Vel0.62 m/s LV GLS -15.4 % MV Peak PG1.54 LA Length 2C 5.34 cm MV Mean PG0.58 mmHg LA Length 4C 5.47 cm MV VTI13.45 cm LA Volume 2C 77.6 ml MV Decel Avnx760.44 msec [ 104.00 - 258.00 ] LA Volume 4C 90.3 ml Med E` Vel6.84 cm/sec [ 8.00 - 15.00 ] LA Volume BP 89.16 ml Lat E` Vel9.51 cm/sec [ 10.00 - 15.00 ] LA Volume Index 46.68 ml/m2 Average E/E`13.58 MV Annulus 2D 3.24 cm MR Peak Vel5.07 m/s RV Base Dimen 2D 4.1 cm [ 2.5 - 4.2 ] MR Peak PG102.82 TAPSE 2.08 cm [ 1.71 - 5.00 ] MV Alias Vel0.37 m/s RA Area 13.23 cm/m2 [ 10.00 - 18.00 ] MR KQV181.8 cm RA Volume 30.30 ml MR Flow0.21 ml/sec RA Volume Index 15.86 ml/m2 MR PISA0.3 cm AoR Diam 2D 2.81 cm [ 2.70 - 3.70 ] MR EROA0.0 cm2 Ao Root Index 1.47 cm/m2 PISARegurgitant Volume 0.0 ml Asc Ao Diam 2D 3.18 cm RV S`12.72 cm/sec Asc Ao Index 1.66 cm/m2 TR Peak Vel2.91 m/s [ 1.00 - 2.80 ] TR Peak PG 33.9 PV Peak Ion 0.81 m/s [ 0.40 -0.80 ] PV Peak PG 2.62 PV Accel Time 173.17 msec [ 103.00 -142.00 ] PV Accel Nuckolls 374.39 cm/sec2 PI Peak Ion 1.76 m/s PI Peak PG 12.40 mmHg PI PHT 212.98 sec - FINDINGS: Left Ventricle: Normal left ventricular cavity size based on 2Dmeasurements. Normal left ventricular size based on volume index. Eccentric LV hypertrophy. Normalleft ventricular systolic function. The Ejection Fraction (Richmond's) is measured at 58 %.The average global longitudinal strain rate is abnormal (less negative than -16%). Right Ventricle: Normal right ventricular size. Normal right ventricularsystolic function. Left Atrium: Moderately dilated left atrium. Right Atrium: The right atrium is normal in size. Mitral Valve: There is mild to moderate mitral regurgitation. MV StructureAbnormalities: The peak transmitral gradient is 1.54 mmHg The mean transmitral gradientis 0.58 mmHg Aortic Valve: Mild aortic valve regurgitation. No aortic valve stenosis. Tricuspid Valve: There is mild tricuspid regurgitation. The estimatedpulmonary artery systolic pressure is 35 mmHg. Pulmonic Valve: There is mild pulmonic regurgitation. Aorta: The aortic root is normal in size. The aortic root is normal insize when indexed. The ascending aorta is normal in size when indexed. CONCLUSIONS: 1. Normal left ventricular cavity size based on 2D measurements. Normalleft ventricular size based on volume index. Eccentric LV hypertrophy. Normal leftventricular systolic function. The Ejection Fraction (Richmond's) is measured at 58 %. Theaverage global longitudinal strain rate is abnormal (-15.4%). 2. Normal right ventricular size. Normal right ventricular systolicfunction. 3. Moderately dilated left atrium. 4. The right atrium is normal in size. 5. There is mild to moderate mitral regurgitation. 6. Mild aortic valve regurgitation. No aortic valve stenosis. 7. There is mild tricuspid regurgitation. 8. There is mild pulmonic regurgitation. 9. The aortic root is normal in size. The aortic root is normal in sizewhen indexed. ATTESTATION: I have reviewed and interpreted the pertinent images and measurements ofthis study. I attest to the conclusions in the final report that is provided above. DISCLAIMER: The study images and the final report will be retained in the patientchart by the [facility] for the legally required time period. This chart constitutesthe legal record of any testing performed. Electronically Signed By: Mookie Crowell MD 11/14/2024 3:07:07 PM ENDOSCOPY TECHNICAN Electronically Signed By: Mookie Crowell MD 11/14/2024 3:07:07 PM ENDOSCOPY TECHNICAN Toby Soto MD CV ECHO PROCEDURES Gabi l Result * Pulmonary Function Test - (11/14/2024 7:49 AM ENDOSCOPY TECHNICAN) FVC PRE 2.60 L [facility] FVC %PRE PRED 84 % [facility] FEV1 PRE 2.15 L [facility] FEV1 %PRE PRED 88 % [facility] FEV1/FVC PRE 82.8 % [facility] FRC PL PRE 1.95 L [facility] FRC PL %PRE PRED 65 % [facility] RV PRE 1.21 L [facility] RV %PRE PRED 58 % [facility] TLC PRE 3.81 L [facility] TLC %PRE PRED 73 % [facility] DLCO PRE 16.1 ml/min/mmH g [facility] DLCO %PRE PRED 79 % [facility] Anatomical Region Laterality Modality PFT 11/14/2024 7:27 AM ENDOSCOPY TECHNICAN Narrative 11/17/2024 2:53 AM ENDOSCOPY TECHNICAN PFT performed at:->[facility] PFT [id number] Procedure:->Spirometry with Bronchodilator Procedure:->Airway Resistance Procedure:->Lung Volumes Procedure:->DLCO Lung Volumes via:->Pleth with Airway Resistance DLCO:->Spirometry Pulmonary Function Test Interpretation SPIROMETRY: Spirometry is normal. The FEV1 to FVC ratio is normal. The flow volume loop is normal. LUNG VOLUMES: TLC measured by plethysmography is decreased. DLCO: The diffusing capacity is normal. Impression: There is a mild restrictive ventilatory defect. There is no impairment of alveolar gas exchange by DLCO. The attending pulmonary physician certifies a physician presence in the [facility] during the administration of aerosolized bronchodilator. The attending pulmonary physician certifies that he/she has reviewed and interpreted the graphic and numerical data of this pulmonary function study and agrees with the written final report. The lower limit of normal for PaO2 and %HbO2 is age dependent. However, the [facility] defines hypoxemia as a PaO2 <56 mm Hg or a %HbO2 <89%. Starting on October of 2024 the [facility] utilizes race neutral GLI Global normative equations. us Toby Soto MD PFT ORDERABLES Final R esult * SCAN - PATHOLOGY (10/09/2024 12:36 PM ENDOSCOPY TECHNICAN) us Provider Scanning Final Result * Antibody identification (10/07/2024 3:12 PM ENDOSCOPY TECHNICAN) [facility] Antibody ID 1 Anti-CD38 Comment:Panreactive -CD38 on reagent RBCs reacting with anti-CD38 therapy. DTT treatment removes cell surface CD38 and allows detection of common clinically significant antibodies except those against [place] antigens. TRANSFUSION 2015;55;[id number] Blood 10/07/2024 3:12 PM ENDOSCOPY TECHNICAN 10/07/2024 3:12 PM ENDOSCOPY TECHNICAN Toby Soto MD LAB BLOOD BANK TEST ORD ERABLES Final Result Performing Organization Address [facility]/ZIP Co de Phone Number LEMUEL [facility] [employer] [place] [address] * Immunotyping, serum (10/07/2024 12:14 PM ENDOSCOPY TECHNICAN) [facility] Immunofixation Please see comment Comment: SMALL IGG KAPPA PARAPROTEIN Reviewed and signed by Travon Hernandez MD, PhD 10/09/2024 Immunosubtraction Please see comment LEMUEL [facility] Comment: See immunofixation for further information Reviewed and signed by rTavon Hernandez MD, PhD 10/08/2024 Blood 10/07/2024 12:1 4 PM ENDOSCOPY TECHNICAN 10/07/2024 3:07 PM ENDOSCOPY TECHNICAN Narrative [facility] - 10/11/2024 8:17 AM ENDOSCOPY TECHNICAN Reflex Immunotyping, Ser Toby Soto MD LAB BLOOD ORDERABLES Fi nal Result Performing Organization Address City/[facility]/ZIP Co de Phone Number [employer] [facility] [facility] [employer] [place] [address] * eGFR (10/07/2024 12:14 PM ENDOSCOPY TECHNICAN) [facility] eGFR 73 >=60 mL/min/1. 73 m2 Comment: Interpretive Data Reference Interval Normal ?>/= 90 mL/min/1.73m2 Mildly decreased* ? 60 - 89 mL/min/1.73m2 Mildly to moderately decreased ?45 - 59 mL/min/1.73m2 Moderately to severely decreased ??30 - 44 mL/min/1.73m2 Severely decreased ?15 - 29 mL/min/1.73m2 Kidney Failure ?< 15 ??mL/min/1.73m2 *Relative to young adult level Estimated glomerular filtration rate is determined by the 2020 CKD-EPI equation recommended by the National Kidney Foundation (A Unifying Approach to GFR Estimation: Recommendations of the NKF-ASK Task Force on Reassessing the Inclusion of Race in Diagnosing Kidney Disease, JASN 2020). The CKD-EPI equation should not be used for patients with unstable renal function and has not been validated in children and those over 70. Current interpretive data was last reviewed 2021. Blood 10/07/2024 12:1 4 PM ENDOSCOPY TECHNICAN 10/07/2024 12:29 PM ENDOSCOPY TECHNICAN us Toby Soto MD LAB BLOOD ORDERABLES Fi nal Result [facility] Department of Laboratories [place], [place] [id number] * (ABNORMAL) Differential, auto (10/07/2024 12:14 PM ENDOSCOPY TECHNICAN) Pathologist [facility] Neutrophil abs 3.5 1.5 - 6.5 K/cumm Comment:Testing performed by : [facility], [address] [place] [address] Lymphocyte abs 0.5(L) 0.8 - 3.3 K/cumm [facility] Comment:Testing performed by : [facility], [address] [place] [address] Monocyte abs 0.8 0.2 - 0.8 K/cumm [facility] Comment:Testing performed by : [facility], [address] [place] [phone] Eosinophil abs 0.0 0.0 - 0.5 K/cumm [facility] Comment:Testing performed by : [facility], [address] [place] [phone] Basophil abs 0.0 0.0 - 0.1 K/cumm [facility] Comment:Testing performed by : [facility], [address] [place] [phone] Neutrophil pct 72.0 % [facility] Comment: Interpretive Data Percent cell count reference ranges are not reported, since discordance with absolute values may lead to misinterpretation of CBC data. Current Interpretive Data was last revised on 2018. Testing performed by: [facility], [address] [place] [phone] Lymphocyte pct 10.9 % [facility] Comment: Interpretive Data Percent cell count reference ranges are not reported, since discordance with absolute values may lead to misinterpretation of CBC data. Current Interpretive Data was last revised on 2018. Testing performed by: [facility], [address] [place] [phone] Monocyte pct 16.4 % [facility] Comment: Interpretive Data Percent cell count reference ranges are not reported, since discordance with absolute values may lead to misinterpretation of CBC data. Current Interpretive Data was last revised on 2018. Testing performed by: [facility], [address] [place] [phone] Eosinophil pct 0.0 % [facility] Comment: Interpretive Data Percent cell count reference ranges are not reported, since discordance with absolute values may lead to misinterpretation of CBC data. Current Interpretive Data was last revised on 2018. Testing performed by: [facility], [address] [place] [phone] Basophil pct 0.7 % [facility] Comment: Interpretive Data Percent cell count reference ranges are not reported, since discordance with absolute values may lead to misinterpretation of CBC data. Current Interpretive Data was last revised on 2018. Testing performed by: [facility], [facility] [place] [address] Blood 10/07/2024 12:1 4 PM ENDOSCOPY TECHNICAN 10/07/2024 12:26 PM ENDOSCOPY TECHNICAN us Toby Soto MD LAB BLOOD ORDERABLES Fi nal Result Performing Organization Address City/[facility]/ZIP Co de Phone Number [facility] [place] [place] [address] * BMT donor evaluation (10/07/2024 12:14 PM ENDOSCOPY TECHNICAN) Hep B surf Ag, donor Negative Negative [facility] Hep B core Ab, donor Negative Negative [facility] Hep C Ab, donor Negative Negative [facility] HIV 1-2 Ab, donor Negative Negative [facility] HTLV I/II Ab, donor Negative Negative [facility] Syphilis testing, donor Negative Negative [facility] HIV KIM, donor Negative Negative [facility] HCV KIM, donor Negative Negative [facility] HBV KIM, donor Negative Negative [facility] WNV KIM, donor Negative Negative [facility] CMV testing, donor Negative Negative [facility] Comment: Interpretive Data Testing performed by [facility] [place] [address] [facility] [id number] ??Panel consists of testing for Hepatitis B, Hepatitis C, HIV, HTLV, Syphilis, CMV, West Nile Virus and Chagas disease.Current interpretive data was last revised on 2022. Chagas testing, donor Negative Negative [facility] Blood 10/07/2024 12:1 4 PM ENDOSCOPY TECHNICAN 10/07/2024 1:36 PM ENDOSCOPY TECHNICAN us Toby Soto MD LAB BLOOD ORDERABLES Fi nal Result Performing Organization Address City/[facility]/ZIP Co de Phone Number [facility] [place] [address] * B K Antigen Type (10/07/2024 12:14 PM ENDOSCOPY TECHNICAN) RBC K ag Negative Blood 10/07/2024 12:1 4 PM ENDOSCOPY TECHNICAN 10/07/2024 1:22 PM ENDOSCOPY TECHNICAN Toby Soto MD LAB BLOOD ORDERABLES Fi nal Result Performing Organization Address [facility] de Phone Number LEMUEL [facility] Department [place] [address] * Immunoglobulin free light chains (10/07/2024 12:14 PM ENDOSCOPY TECHNICAN) Pathologist [facility] [place]/Lambda ratio [facility] 1.58 0.26 - 1.65 Comment: Interpretive Data The Binding Site FreeLite assay procedure was used. Results from different manufacturers or methods may not be comparable. Serial testing should be performed using the same methods and instrumentation. Current Interpretive Data was last revised on 2023. [place] free light chain [facility] 1.36 0.33 - 1.94 mg/dL [facility] Comment: Interpretive Data The Binding Site FreeLite assay procedure was used. Results from different manufacturers or methods may not be comparable. Serial testing should be performed using the same methods and instrumentation. Current Interpretive Data was last revised on 2023. Lambda free light chain [facility] 0.86 0.57 - 2.63 mg/dL [facility] Comment: Interpretive Data The Binding Site FreeLite assay procedure was used. Results from different manufacturers or methods may not be comparable. Serial testing should be performed using the same methods and instrumentation. Current Interpretive Data was last revised on 2023. Blood 10/07/2024 12:1 4 PM ENDOSCOPY TECHNICAN 10/07/2024 2:25 PM ENDOSCOPY TECHNICAN Toby Soto MD LAB BLOOD ORDERABLES Fi nal Result Performing Organization Address [facility] Co de Phone Number [employer] [facility] Department [place] [address] * (ABNORMAL) CBC with auto differential (10/07/2024 12:14 PM ENDOSCOPY TECHNICAN) [facility] WBC 4.8 3.8 - 9.9 K/cumm Comment:Testing performed by : [facility], [address] [place], [place] [phone] Hgb 9.6(L) 11.9 - 15.5 g/dL [facility] Comment:Testing performed by : [facility], [address] [place], [place] [phone] Hct 30.4(L) 35.6 - 45.5 % [facility] Comment:Testing performed by : [facility], [address] [place], [place] [phone] Plt 74(L) 150 - 400 K/cumm [facility] Comment:Testing performed by : [facility], [address] [place], [place] [phone] MPV 13.5(H) 6.8 - 10.4 fL [facility] Comment:Testing performed by : [facility], [address] [place], [place] [phone] RBC 3.21(L) 3.90 - 5.20 M/cumm [facility] Comment:Testing performed by : [facility], [address] [place], [place] [phone] MCV 94.9 81.3 - 96.4 fL [facility] Comment:Testing performed by : [facility], [address] [place], [place] [phone] MCH 29.9 27.1 - 33.3 pg [facility] Comment:Testing performed by : [facility], [address] [place] [address] MCHC 31.5(L) 32.3 - 35.7 g/dL [facility] Comment:Testing performed by : [facility], [address] [place] [address] RDW CV 17.2(H) 11.1 - 14.9 % [facility] Comment:Testing performed by : [facility], [address] [place] [address] NRBC abs 0.00 0.00 - 0.01 K/cumm [facility] Comment:Testing performed by : [facility], [address] [place] [phone] Blood 10/07/2024 12:1 4 PM ENDOSCOPY TECHNICAN 10/07/2024 12:26 PM ENDOSCOPY TECHNICAN Toby Soto MD LAB BLOOD ORDERABLES Fi nal Result Performing Organization Address City/[facility]/ZIP Co de [place] [address] * (ABNORMAL) HSV 2 IgG Antibody Blood (10/07/2024 12:14 PM ENDOSCOPY TECHNICAN) HSV 2 IgG Reactive( A) Nonreactive Comment: Interpretive Data 1. Nonreactive: No detectable IgG antibody to HSV-2. 2. Equivocal: Presence or absence of detectable antibodies to HSV-2 cannot be determined and the test should be repeated. 3. Reactive: Indicates presence of detectable IgG antibody to HSV-2. Current interpretive data was last revised on 2023. Blood 10/07/2024 12:1 4 PM ENDOSCOPY TECHNICAN 10/07/2024 2:25 PM ENDOSCOPY TECHNICAN Toby Soto MD LAB MICROBIOLOGY - GENE RAL ORDERABLES Final Result Performing Organization Address [facility] Co de [place] [address] * (ABNORMAL) HSV 1 IgG Antibody Blood (10/07/2024 12:14 PM ENDOSCOPY TECHNICAN) HSV 1 IgG Reactive( A) Nonreactive Comment: Interpretive Data 1. Nonreactive: No detectable IgG antibody to HSV-1. 2. Equivocal: Presence or absence of detectable antibodies to HSV-1 cannot be determined and the test should be repeated. 3. Reactive: Indicates presence of detectable IgG antibody to HSV-1. Current interpretive data was last revised on 2017. Blood 10/07/2024 12:1 4 PM ENDOSCOPY TECHNICAN 10/07/2024 2:25 PM ENDOSCOPY TECHNICAN Toby Soto MD LAB MICROBIOLOGY - GENE RAL ORDERABLES Final Result Performing Organization Address City/[facility] Co de Phone Number LEMUEL BORJAS [facility] [place] [address] * Sickle cell screen (10/07/2024 12:14 PM ENDOSCOPY TECHNICAN) Sickle cell, solubility Negative Negative Comment: Interpretive Data A positive sickle cell screening test is not sufficient to diagnose the presence of hemoglobin S since other rare hemoglobins may produce a positive turbidity test and false positive results may occur in the presence of dysglobulinemias. Recommend confirmation of a positive test result by ordering hemoglobin analysis performed by capillary electrophoresis if clinically indicated. Current interpretive data was last revised on 2019. Blood 10/07/2024 12:1 4 PM ENDOSCOPY TECHNICAN 10/07/2024 2:26 PM ENDOSCOPY TECHNICAN Toby Soto MD LAB BLOOD ORDERABLES Fi nal Result Performing Organization Address [facility] Co de Phone Number [facility] [place] [address] * aPTT (10/07/2024 12:14 PM ENDOSCOPY TECHNICAN) Pathologist [facility] aPTT 30 28 - 38 sec Comment: Interpretive Data Heparin therapeutic range: 66.0 - 100.0 seconds. Range based on correlation with therapeutic heparin activity range of 0.3 - 0.7 Units/mL. Current interpretive data was last revised on 2023. Blood 10/07/2024 12:1 4 PM ENDOSCOPY TECHNICAN 10/07/2024 12:45 PM ENDOSCOPY TECHNICAN Toby Soto MD LAB BLOOD ORDERABLES Fi nal Result Performing Organization Address [facility] Co de Phone Number LEMUEL BORJAS [facility] [place] [address] * (ABNORMAL) Protime-INR (10/07/2024 12:14 PM ENDOSCOPY TECHNICAN) PT 15.3(H) 9.7 - 13.0 sec INR 1.41(H) 0.90 - 1.20 [facility] Comment: Interpretive data Oral anticoagulant therapeutic ranges: Venous thromboembolism prophylaxis or treatment: 2.0-3.0 CARDIOLOGY Standard range: 2.0-3.0 High-intensity range: 2.5-3.5 Refer to indication-specific guidelines for appropriate target ranges for prosthetic heart valve replacement. Current interpretive data was last revised on 2019. Blood 10/07/2024 12:1 4 PM ENDOSCOPY TECHNICAN 10/07/2024 12:45 PM ENDOSCOPY TECHNICAN Toby Soto MD LAB BLOOD ORDERABLES Fi nal Result Performing Organization Address City/[facility]/ZIP Co de Phone Number [facility] [place] [address] * (ABNORMAL) Type and screen (10/07/2024 12:14 PM ENDOSCOPY TECHNICAN) Pathologist [facility] Jabari, indirect Positive(A) ABO Rh A Positive [facility] Blood 10/07/2024 12:1 4 PM ENDOSCOPY TECHNICAN 10/07/2024 1:22 PM ENDOSCOPY TECHNICAN Narrative [facility] - 10/07/2024 3:12 PM ENDOSCOPY TECHNICAN Has the patient had Daratumumab or Isatuximab in the past 6 months?->Unknown Toby Soto MD LAB BLOOD BANK TEST ORD ERABLES Final Result [facility] [place] [address] * Uric acid (10/07/2024 12:14 PM ENDOSCOPY TECHNICAN) Pathologist [facility] Uric acid 3.0 2.5 - 7.0 mg/dL Blood 10/07/2024 12:1 4 PM ENDOSCOPY TECHNICAN 10/07/2024 12:29 PM ENDOSCOPY TECHNICAN Toby Soto MD LAB BLOOD ORDERABLES Fi nal Result Performing Organization Address [facility] [facility] Co de Phone Number [facility] [place] [address] * (ABNORMAL) Protein electrophoresis with reflex, serum (10/07/2024 12:14 PM ENDOSCOPY TECHNICAN) Pathologist [facility] Protein, sr 6.1(L) 6.2 - 8.2 g/dL Albumin 3.4 3.2 - 5.0 g/dL [facility] Alpha-1 globulin 0.4 0.2 - 0.4 g/dL [facility] Alpha-2 globulin 0.8 0.5 - 1.0 g/dL [facility] Beta-1 globulin 0.4 0.3 - 0.6 g/dL [facility] Beta-2 globulin 0.7(H) 0.2 - 0.6 g/dL [facility] Gamma globulin 0.4(L) 0.5 - 1.7 g/dL [facility] SPEP interp Please see comment [facility] Comment: Possible abnormal restricted peak in Beta-2 region Decreased gamma globulins See immunofixation for further information Reviewed and signed by Travon Hernandez MD, PhD 10/09/2024 Immunotyping See Immunotyping Results [facility] Blood 10/07/2024 12:1 4 PM ENDOSCOPY TECHNICAN 10/07/2024 2:25 PM ENDOSCOPY TECHNICAN Toby Soto MD LAB BLOOD ORDERABLES Fi nal Result Performing Organization Address [facility]/ZIP Co de Phone Number [facility] Department [place] [address] * Magnesium (10/07/2024 12:14 PM ENDOSCOPY TECHNICAN) Pathologist [facility] Magnesium 1.7 1.4 - 2.5 mg/dL Blood 10/07/2024 12:1 4 PM ENDOSCOPY TECHNICAN 10/07/2024 12:29 PM ENDOSCOPY TECHNICAN Toby Soto MD LAB BLOOD ORDERABLES Fi nal Result Performing Organization Address City/[facility] Co de Phone Number [facility] [place] [address] * Lactate dehydrogenase (LD) (10/07/2024 12:14 PM ENDOSCOPY TECHNICAN) [facility] Lactate dehydrogenase (LDH) 138 100 - 250 Units/L Blood 10/07/2024 12:1 4 PM ENDOSCOPY TECHNICAN 10/07/2024 12:29 PM ENDOSCOPY TECHNICAN Toby Soto MD LAB BLOOD ORDERABLES Fi nal Result Performing Organization Address [facility] de Phone Number [facility] [place] [address] * Hemoglobin A1c (10/07/2024 12:14 PM ENDOSCOPY TECHNICAN) [facility] Hgb A1C 5.6 4.0 - 5.6 % Estimated Average Glucose 114 mg/dL [facility] Comment: The ADA recommends reporting an estimated Average Glucose (eAG) with all Hemoglobin A1c results using the equation derived from a study of 507 normal and diabetic adults. ??Minority populations were underrepresented and children were not included. ?? (Diabetes Care 2020; 43(S1): S66-S76). ??The eAG is not equivalent to a fasting glucose. Blood 10/07/2024 12:1 4 PM ENDOSCOPY TECHNICAN 10/07/2024 12:29 PM ENDOSCOPY TECHNICAN Toby Soto MD LAB BLOOD ORDERABLES Fi nal Result Performing Organization Address [facility] Co de Phone Number [facility] [place] [address] * (ABNORMAL) IgA (10/07/2024 12:14 PM ENDOSCOPY TECHNICAN) [facility] Immunoglobulin A <50(L) 70 - 400 mg/dL Blood 10/07/2024 12:1 4 PM ENDOSCOPY TECHNICAN 10/07/2024 1:24 PM ENDOSCOPY TECHNICAN Toby Soto MD LAB BLOOD ORDERABLES Fi nal Result Performing Organization Address [facility] Co de Phone Number [facility] [place] [address] * (ABNORMAL) IgM (10/07/2024 12:14 PM ENDOSCOPY TECHNICAN) Immunoglobulin M <25(L) 40 - 230 mg/dL Blood 10/07/2024 12:1 4 PM ENDOSCOPY TECHNICAN 10/07/2024 1:24 PM ENDOSCOPY TECHNICAN Result [facility] Toby Soto MD LAB BLOOD ORDERABLES Fi nal Result Performing Organization Address [facility] de Phone Number [facility] [place] [address] * (ABNORMAL) IgG (10/07/2024 12:14 PM ENDOSCOPY TECHNICAN) Immunoglobulin G 563(L) 700 - 1,600 mg/dL Blood 10/07/2024 12:1 4 PM ENDOSCOPY TECHNICAN 10/07/2024 1:24 PM ENDOSCOPY TECHNICAN Result [facility] Toby Soto MD LAB BLOOD ORDERABLES Fi nal Result Performing Organization Address [facility] de Phone Number [facility] [place] [address] * Beta 2 microglobulin, serum (10/07/2024 12:14 PM ENDOSCOPY TECHNICAN) Beta 2 Microglobulin, Serum 1.70 1.00 - 2.50 mg/L Comment: Interpretive Data The Frank Beta-2 microglobulin assay procedure was used. Results from different manufacturers or methods may not be comparable. Serial testing should be performed using the same method. Blood 10/07/2024 12:1 4 PM ENDOSCOPY TECHNICAN 10/07/2024 1:24 PM ENDOSCOPY TECHNICAN us Toby Soto MD LAB BLOOD ORDERABLES Fi nal Result [facility] Department [place] [address] * Lipid panel (10/07/2024 12:14 PM ENDOSCOPY TECHNICAN) Cholesterol 155 30 - 199 mg/dL Comment: Interpretive Data Ages < or = 19 years ??Acceptable: ? <170 mg/dL ??Borderline high: ??170-199 mg/dL ??High: ? >or= 200 mg/dL Ages > or = 20 years ??Desirable: ?<200 mg/dL ??Borderline high: ??200-239 mg/dL ??High: ? >or= 240 mg/dL Literature References: 1. Expert Panel on Integrated Guidelines for Cardiovascular Health and Risk Reduction in Children and Adolescents. Pediatrics 2011;128:S213 2. NCEP Expert Panel. Circulation 2004;110:227 Current Interpretive Data was last revised on 2018. Triglycerides 143 <=149 mg/dL [facility] Comment: Interpretive Data Ages < or = 9 years ??Acceptable: ? <75 mg/dL ??Borderline high: ??75-99 mg/dL ??High: ? >or= 100 mg/dL Ages 10 to 20 years ??Acceptable: ? <90 mg/dL ??Borderline high: ??90-129 mg/dL ??High: ? >or= 130 mg/dL Ages > or = 20 years ??Desirable: ?<150 mg/dL ??Borderline high: ??150-199 mg/dL ??High: ? 200-499 mg/dL ?Very high: ?? >or= 499 mg/dL Literature References: 1. Expert Panel on Integrated Guidelines for Cardiovascular Health and Risk Reduction in Children and Adolescents. Pediatrics 2011;128:S213 2. NCEP Expert Panel. Circulation 2004;110:227 Current Interpretive Data was last revised on 2018. HDL 55 >=40 mg/dL [facility] Comment: Interpretive Data Ages < or = 19 years ??Acceptable: ? >45 mg/dL ??Borderline low: ?? 40-45 mg/dL ??Low: ? <40 mg/dL Ages > or = 20 years ??Desirable: ?>or= 60 mg/dL ??Low: ? <40 mg/dL Literature References: 1. Expert Panel on Integrated Guidelines for Cardiovascular Health and Risk Reduction in Children and Adolescents. Pediatrics 2011;128:S213 2. NCEP Expert Panel. Circulation 2004;110:227 Current Interpretive Data was last revised on 2018. LDL, calculated 75 <=129 mg/dL [facility] Comment: Interpretive Data Ages < or = 19 years ??Acceptable: ? <110 mg/dL ??Borderline high: ??110-129 mg/dL ??High: ?>or= 130 mg/dL Ages > or = 20 years ??Optimal: ? <100 mg/dL ??Near optimal: ?100-129 mg/dL ??Borderline high: ?? 130-159 mg/dL ??High: ?>160 mg/dL Calculated using the Lamont LDL-C estimating equation. This equation was implemented on 2024. Prior to this date LDL-C was estimated using the Friedewald equation. Literature References: 1. Expert Panel on Integrated Guidelines for Cardiovascular Health and Risk Reduction in Children and Adolescents. Pediatrics 2011;128:S213 2. NCEP Expert Panel. Circulation 2004;110:227 3. Lamont Taylor al. RIYA Cardiol. 2020 February 20;5(5):540-548. doi: 10.1001/jamacardio.2020.0013 Current Interpretive Data was last revised on 2024. Non-HDL Cholesterol 100 mg/dL [facility] Comment: Interpretive Data Ages < or = 19 years ??Acceptable: ?<120 mg/dL ??Borderline high: ??120-144 mg/dL ??High: ?>145 mg/dL Ages > or = 20 years ??When triglycerides are >200 mg/dL, Non-HDL cholesterol is a secondary target of ? therapy with treatment goals that are 30 mg/dL greater than the LDL cholesterol target. ? Literature References: 1. Expert Panel on Integrated Guidelines for Cardiovascular Health and Risk Reduction in Children and Adolescents. Pediatrics 2011;128:S213 2. NCEP Expert Panel. Circulation 2004;110:227 Current Interpretive Data was last revised on 2018. Chol/HDL ratio 3 [facility] Blood 10/07/2024 12:1 4 PM ENDOSCOPY TECHNICAN 10/07/2024 12:29 PM ENDOSCOPY TECHNICAN us Toby Soto MD LAB BLOOD ORDERABLES Fi nal Result [facility] Department [place] [address] * (ABNORMAL) Comprehensive metabolic panel (10/07/2024 12:14 PM ENDOSCOPY TECHNICAN) Sodium 141 135 - 145 mmol/L Potassium, pl 4.4 3.3 - 4.9 mmol/L [facility] Chloride 108 97 - 110 mmol/L [facility] CO2 27 22 - 32 mmol/L [facility] Anion gap 6 2 - 15 mmol/L [facility] BUN 21 6 - 25 mg/dL [facility] Creatinine 0.90 0.60 - 1.10 mg/dL [facility] Glucose 99 70 - 199 mg/dL [facility] Comment: Interpretive Data Fasting glucose >/= 126 mg/dl is diagnostic for diabetes. ?? Fasting is defined as no caloric intake for at least 8 hours. Fasting glucose between 100 mg/dl to 125 mg/dl is diagnostic of prediabetes. In a patient with classic symptoms of hyperglycemia or hyperglycemic crisis, a random glucose >/= 200 mg/dl is diagnostic for diabetes. In the absence of unequivocal hyperglycemia, results should be confirmed by repeat testing. The classification and Diagnosis of Diabetes Diabetes Care 2021; 46: S19-S40. Current interpretive data was last revised 2022. Calcium 8.7 8.5 - 10.3 mg/dL [facility] Bilirubin, total <0.2 0.1 - 1.2 mg/dL [facility] Protein, pl 6.0(L) 6.5 - 8.5 g/dL [facility] Albumin 3.7 3.5 - 5.0 g/dL [facility] Alk phos 129 40 - 130 Units/L [facility] ALT 11 7 - 45 Units/L [facility] AST 11 10 - 45 Units/L [facility] Blood 10/07/2024 12:1 4 PM ENDOSCOPY TECHNICAN 10/07/2024 12:29 PM ENDOSCOPY TECHNICAN us Toby Soto MD LAB BLOOD ORDERABLES nal Result [facility] Department [place] [address] from Last [address] [facility] Care Teams Social Media Marketer Relationship Specialty Start Date End Date Carri Kohli NP [address] [facility] [place] [address] PCP - General Family Medicine 09/18/24 Maria Luisa Dupree MD [address] [place] [address] Referring Physician Internal Medicine 09/18/24 Toby Soto MD [address] [facility] 8 DIV IM BONE MARROW TRANSPLANT, , [address] [place] [address] Consulting Physician Medical Oncology 09/23/24
--- OUTSIDE RECORDS SUMMARY | 2024-11-20 09:28 | XMS_ITS ---
Author Organization [address] Address [address] [place] [id number] Care Team Providers Care Education Trainer Name Role Phone Maria Luisa Dupree MD Unavailable Carri Kohli NP Primary Care Provider [phone] Cesar Solis MD Unavailable [phone] Active Problems Problem Noted Date Diagnosed Date Multiple myeloma not having achieved remission ( CMS/HCC) 11/07/2024 Autologous donor of stem cells 11/07/2024 Current Oncology Plans BMT - Standard Hematopoietic Progenitor Cell Mobilization for Autologous SCT in MM - GCSF and Motixafortide* Plan Start Date:11/19/2024 Plan Provider:Cesar Solis MD Linked Problems Autologous donor of stem sarthak lsMultiple myeloma not having achieved remission (CMS/HCC) (HCC) Treatment Medications Current Day (Day 1 , Cycle 1 - Planned for 12/06/2024) Next Day (Day 2, Cycle 1 - Planned for 12/07/2024) motixafortide (APHEXDA) No medications scheduled . No medications scheduled. Past Plans No past plan information found. Radiation Treatments * No radiation treatments are documented for this patient in [facility]. Treatments may have been administered in another system.
--- OUTSIDE RECORDS SUMMARY | 2024-11-20 09:28 | XMS_ITS | Encounter Summary ---
Author Organization [facility] Address [address] [place] [address]. [place] [address] [place] [address] Care Team Providers Care Woodworking Machinist Name Role Phone Fernando Mccabe MD Primary Care Provider [phone] Boo Resendiz MD Primary Care Provider [phone] Jovtia Bartlett NP Primary Care Provider [phone] Carri Kohli APNP Primary Care Provider [phone] Encounter Details Date Type Department Care Team (Late st Contact Info) Description 03/30/2019 Abstract SFL CONVERSION [address] [place] [address] , Generic MD Heide Social History Tobacco Use Types Packs/Day Years Used Date Smoking Tobacco: Every Day Cigarettes Smokeless Tobacco: Never Alcohol Use Standard Drinks/Week Comments Yes 0 (1 standard drink = 0.6 oz pur e alcohol) occassional use only Comments Unknown Sex and Gender Information Value Date Recorded Sex Assigned at Female 02/15/2019 11:17 AM CDT Legal Sex Female 9:43 PM WELDER PRODUCTION LINE COMBINATION Gender Identity Female 02/15/2019 11:17 AM CDT Sexual Orientation Not on file documented as of this encounter Plan of Treatment Not on file documented as of this encounter Visit Diagnoses Not on filedocumented in this encounter Care Teams Woodworking Machinist Relationship Specialty Start Date End Date Fernando Mccabe MD [address] [place] [id number] PCP - General FAMILY PRACTICE 02/18/19 02/17/21 Boo Resendiz MD [address] [place] [address] PCP - General FAMILY PRACTICE 02/18/21 04/12/21 Jovita Bartlett NP [address] [place] [id number] PCP - General NURSE PRACTITIONER 04/13/21 06/07/24 Carri Kohli APNP [address] [place] [address] PCP - General 06/08/24 documented as of this encounter
--- OUTSIDE RECORDS SUMMARY | 2024-11-20 09:29 | XMS_ITS | Encounter Summary ---
Author Organization [facility] Address [address] [place] [address] Care Team Providers Care Sign Hanger Supervisor Name Role Phone Maria Luisa Dupree MD Unavailable Carri Kohli NP Primary Care Provider [phone] Cesar Solis MD Unavailable [phone] Encounter Details Date Type Department Care Team (Late st Contact Info) Description 10/08/2024 Treatment [facility] PATHOLOGY [address] [address] Danika Metcalf, [address] [facility] [phone] [place] [address] Social History Tobacco Use Types Packs/Day Years Used Date Smoking Tobacco: Former Cigarettes Smokeless Tobacco: Never Comments Unknown Sex and Gender Information Value Date Recorded Sex Assigned at Not on file Legal Sex Female 1:22 PM GRINDER TENDER Gender Identity Not on file Sexual Orientation Not on file documented as of this encounter Progress Notes * Danika Metcalf, - 10/08/2024 11:33 AM CST Transfusion Medicine Blood Bank Note Patient Information: ABO/Rh: A positive Antibody screen: Positive Previous antibodies: No known antibodies New antibodies identified: anti-CD38 Additional testing performed: Red blood cell phenotype: K antigen negative Relevant Patient History: Denise Persaud is a 59 y.o. woman with multiple myeloma presenting with lytic bone disease, anemia, and renal insufficiency, currently receiving chemotherapy (CyBorD followed by Jagruti MYLES). There isno documented history of transfusion. Testing Information: The antibody screen was positive. Antibody identification demonstrated antibodies against CD38 in the patient's plasma. Additional testing was performed. Phenotyping showed that the patient's red blood cells are K antigen negative. Monoclonal IgG antibodies directed against CD38, such as daratumumab and others, can cause reactivity in blood bank testing due to CD38 expression on red blood cells. Blood bank testing was performedwith red blood cells treated with DTT, which removes cell surface CD38 and allows detection of common clinically significant antibodies except those against the K antigen. (TRANSFUSION 2015;55;1773-2002) All other common, clinically significant antibodies have been ruled out. Clinical Relevance: Presence of this antibody requires that additional testing be performed and this may result in additional time for blood product selection when ordered for transfusion. Therapeutic Relevance: ABO/Rh and crossmatch compatible red blood cell units negative for the K antigen will be provided for future transfusions as long as anti-CD38 is present in the patient's plasma. Crossmatch compatibility will be performed using DTT treated donor red blood cells. Approximately 91% of ABO compatible units from the donor population are expected to be compatible, with approximately 1-2 units will need to be screened to find one compatible unit for this patient. Contact Information: Please contact the [facility] Transfusion Medicine Service at (option 1) with any questions. This report has been prepared by: Danika Metcalf DO Cosigned by Radha Jeffers MD PhD at 10/12/2024 5:17 PM GRINDER TENDER DER TENDER DER TENDER Associated attestation - Radha Jeffers MD PhD - 10/12/2024 5:17 PM GRINDER TENDER Attestation: I have personally reviewed the antibody result and agree with the interpretation contained in this written blood bank report. Radha Jeffers MD PhD documented in this encounter Plan of Treatment Not on file documented as of this encounter Visit Diagnoses Not on filedocumented in this encounter Care Teams Sign Hanger Supervisor Relationship Specialty Start Date End Date Carri Kohli NP [address] [facility] [place] [address] PCP - General Family Medicine 09/18/24 Maria Luisa Dupree MD [address] [place] [address] Referring Physician Internal Medicine 09/18/24 Cesar Solis MD [address] [facility] 8 DIV IM BONE MARROW TRANSPLANT, , [place] [address] Consulting Physician Medical Oncology 09/23/24 documented as of this encounter
--- OUTSIDE RECORDS SUMMARY | 2024-11-20 09:29 | XMS_ITS | Encounter Summary ---
Author Organization [facility] Address [address] [place] [address]. [place], [place] [id number] [place] [address] Care Team Providers Care Cake Stripper Name Role Phone Carri Kohli Primary Care Provider [phone] Encounter Details Date Type Department Care Team (Late st Contact Info) Description 06/10/2024 Suda Message Enc [address] [address] Lawanda Lovett, [facility]- [address] [place] [address] Visit Follow Up Social History Tobacco Use Types Packs/Day Years Used Date Smoking Tobacco: Every Day Cigarettes Smokeless Tobacco: Never Alcohol Use Standard Drinks/Week Comments Yes 0 (1 standard drink = 0.6 oz pur e alcohol) occassional use only Comments No Sex and Gender Information Value Date Recorded Sex Assigned at Female 02/15/2019 11:17 AM CDT Legal Sex Female 9:43 PM TIPPLE REPAIRER Gender Identity Female 02/15/2019 11:17 AM CDT Sexual Orientation Not on file documented as of this encounter Plan of Treatment Not on file documented as of this encounter Visit Diagnoses Not on filedocumented in this encounter Care Teams Cake Stripper Relationship Specialty Start Date End Date Carri Kohli APNP [address] [place] [id number] PCP - General 06/08/24 documented as of this encounter
--- OUTSIDE RECORDS SUMMARY | 2024-11-20 09:29 | XMS_ITS | Clinical Summary ---
Author Organization [facility] Address [address] [place] [address]. [place] [address] [place] [address] Care Team Providers Care Event Technician Name Role Phone Carri Kohli Primary Care Provider [phone] Allergies Active Allergy Reactions Criticality Noted Date Comments Penicillins Rash Low 02/09/2015 Medications atorvastatin (LIPITOR) 20 MG tablet Take 1 tablet (20 mg total) by mouth daily. 4 Active citalopram (CELEXA) 40 MG tablet Take 1 tablet (40 mg total) by mouth daily. 4 Active calcitonin (MIACALCIN) 200 UNIT/ACT nasal spray 1 spray by Nasal route daily. Active ondansetron (ZOFRAN-ODT) 4 MG disintegrating tablet Take 1 tablet (4 mg total) by mouth 4 (four) times daily as needed for Nausea. Active predniSONE (DELTASONE) 20 MG tablet Take 1 tablet (20 mg total) by mouth daily. Active vitamin D2, ergocalciferol, (DRISDOL) 1.25 mg capsule Take by mouth every 7 days. Active allopurinol (ZYLOPRIM) 300 MG tablet Take 1 tablet (300 mg total) by mouth daily. 4 Active ELIQUIS 5 MG tablet Take 1 tablet (5 mg total) by mouth 2 (two) times daily. 4 Active ASPIRIN LOW DOSE 81 MG chewable tablet Chew 1 tablet (81 mg total) by mouth daily. 4 Active dexamethasone (DECADRON) 4 MG tablet Take 5 tablets on days 1, 2, 8, 9, 15, 16 of each 21 day cycle 4 Active fentaNYL (DURAGESIC) 25 mcg/hr apply 1 patch EVERY 72 HOURS. Apply to skin. Remove after 72 hours.] 4 Active lenalidomide (REVLIMID) 25 MG capsule Take 1 capsule by mouth daily. 4 Active Active Problems Problem Noted Date Diagnosed Date Lumbar radiculopathy 06/10/2024 Low back pain 04/30/2024 LUQ pain 02/15/2019 Tobacco use disorder 02/15/2019 Lipoma of left thigh 02/15/2019 Abdominal mass, LUQ (left upper quadrant) 2018 Resolved Problems Problem Noted Date Diagnosed Date Resolved Date Encounter for screening colonoscopy 02/15/2019 07/03/2020 Dermatitis 02/11/2015 02/15/2019 Encounter for preventive health examination 01/07/2011 02/15/2019 Encounters Date Type Department Care Team Description 11/06/2024 10:41 AM [facility] - 11/06/2024 11:59 PM [facility] Hospital Encounter [facility] [address] [place] [address] Guilherme Bocanegra PA-C Discharge Disposition: Home or Self Care (Routine Discharge) 11/06/2024 Travel 10/30/2024 Orders Only [facility] Interventional Radiology [address] [place] [address] Guilherme Bocanegra PA-C 09/26/2024 5:48 PM [facility] - 09/26/2024 7:58 PM [facility] Emergency [facility] [address] [facility] [address] [place] [address] Sam Jackson, DO Visual Changes Discharge Disposition: Home or Self Care (Routine Discharge) 09/26/2024 Travel from Last 3 Months Family History Medical History Relation Comments Heart Attack Father Diabetes Neg Hx Stroke Neg Hx Relation Status Comments Father Social History Tobacco Use Types Packs/Day Years Used Date Smoking Tobacco: Every Day Cigarettes Smokeless Tobacco: Never Tobacco Cessation:Ready to Q uit: Not Asked; Counseling Given: Not Answered Alcohol Use Standard Drinks/Week Comments Yes 0 (1 standard drink = 0.6 oz pur e alcohol) occassional use only Comments No Sex and Gender Information Value Date Recorded Sex Assigned at Female 02/15/2019 11:17 AM CDT Legal Sex Female 9:43 PM VICE PRESIDENT [employer]Y CHAIN Gender Identity Female 02/15/2019 11:17 AM CDT Sexual Orientation Not on file Last Filed Vital Signs Vital Sign Reading Time Taken Comments Blood Pressure 98/48 09/26/2024 7:55 PM [employer]ICE [employer] Pulse 72 09/26/2024 5:55 PM [employer]ICE [employer]IDENT [employer] Temperature 36.2 ??C (97.2 ??F) 09/26/2024 5:55 PM CS T Respiratory Rate 18 09/26/2024 5:55 PM VICE PRESIDENT [employer]AIN Oxygen Saturation 98% 09/26/2024 7:55 PM [employer]ICE PRESIDENT [employer] Inhaled Oxygen Concentration - - Weight 78.5 kg (173 lb) 09/26/2024 5:55 PM [employer]ICE PRESIDENT [employer] Height 165.1 cm (5' 5 ) 09/26/2024 5:55 PM [employer]ICE PRESIDENT [employer] Body Mass Index 28.79 09/26/2024 5:55 PM VICE PRESIDENT [employer] Plan of Treatment Health Maintenance Due Date Last Done Comments Cervical Cancer Screening Pa p Smear (Age 30 to 64) Every 3 Years 1963 Colorectal Cancer Screening Colonoscopy (10 Years) 1963 Annual Physical 1966 Hepatitis C 1981 Cervical Cancer Screening Pa p with HPV Testing (Age 30 to 64) Every 5 Years 1993 Cervical Cancer Screening wi th HPV 1993 Pneumococcal Vaccine: Pediatrics (0 to 5 Years) and At-Risk Patients (6 to 64 Years) (2 of 2 - PCV) 02/14/2020 02/13/2019 COVID-19 Vaccine (3 - Pfizer risk series) 01/27/2021 12/30/2020, 12/09/2020 Mammogram Screening 04/13/2023 04/13/2021 RSV Immunization or 60+ Years (1 - Risk 60-74 years 1-dose series) 2023 Influenza Adult (#1) 2024 08/27/2021, 07/16/2020 DTaP, Tdap and Td Vaccines ( 2 - Td or Tdap) 02/13/2029 02/13/2019 Zoster Vaccines Completed 08/28/2020, 07/16/2020 Meningococcal B Vaccine Aged Out No l onger eligible based on patient's age to complete this topic Meningococcal Vaccine Aged Out No jovan nova eligible based on patient's age to complete this topic RSV Immunizations Under 20 Months Aged Out No longer eligible b ased on patient's age to complete this topic Procedures Procedure Name Priority Date/Time Associated Diagnosis Comments MRI LUMB SPINE WO CON Routine 11/06/2024 11:29 AM [employer] Compression fracture of L1 vertebra with delayed healing, subsequent encounter CT HEAD WO CON STAT 09/26/2024 6:49 PM [employer]ICE PRESIDENT [employer] MG SCREENING W LEONORA GILBERT DIGI Routine 04/13/2021 1:10 PM CDT Visit for screening mammogram from Last 3 Months or Most Recently Relevant to Health Maintenance Results * MRI LUMB SPINE WO CON (11/06/2024 11:29 AM VICE PRESIDENT [employer] CHAIN) Anatomical Region Laterality Modality Spine Magnetic Resonan ce 11/08/2024 9:44 AM [employer]ICE PRESIDENT [employer]AIN Impressions 11/08/2024 9:49 AM VICE PRESIDENT [employer] CHAIN IMPRESSION: 1. Redemonstration of multiple marrow replacing lesions throughout the visualized portions of the spine and partially visualized portions of the pelvis, in keeping with history of myeloma. Some improvement in marrow signal and heterogeneity and decreased size of some of the myelomatous lesions. 2. Redemonstration of presumed pathologic burst fracture involving the L1 vertebral level. Interval progression of vertebral body height loss, now greater than 75 %. Similar retropulsion. 3. Multilevel degenerative changes in the lumbar spine as detailed above. Ordered By: GUILHERME BOCANEGRA Interpreted By: Reji Toro MD, 11/08/2024 9:44 AM Narrative 11/08/2024 9:49 AM [employer] [address] [place] [address] DATE: 11/06/2024 11:15 AM INDICATION: Compression fracture. Multiple myeloma. EXAMINATION: MRI lumbar spine without contrast. TECHNIQUE: Multiplanar and multisequence MRI images of the lumbar spine were obtained without contrast. COMPARISON: Outside MRI 2024 FINDINGS: There are 5 lumbar type vertebral bodies designated as L1 through L5; using this numbering system, the conus medullaris terminates at L1 and appears unremarkable. There are multiple foci of abnormal T1 hypointensity and T2/STIR hyperintensity throughout the thoracolumbar and sacral spine as well as within the partially visualized pelvis, in keeping with history of multiple myeloma. Marrow replacing lesions involving both the vertebral bodies as well as the posterior elements. There has been some interval improvement with decrease in the degree of marrow signal heterogeneity and decreased size of some of the more discrete marrow replacing lesions. Redemonstration of a presumed pathologic burst fracture involving the L1 vertebral level with interval progression of vertebral body height loss (now greater than 75% centrally) but with similar degree of retropulsion. Slight kyphosis centered at the L1 level. The remainder of the lumbar vertebral alignment, vertebral body heights, and facet alignment are maintained. Degenerative changes are evident in the lumbar spine with disc degeneration, endplate osteophytes, ligamentum flavum thickening, and facet hypertrophy noted. Multilevel disc desiccation. Greatest loss of disc height at L5-S1. Imaged portions of the soft tissues reveal no acute findings elsewhere. Colonic diverticulosis. T12-L1: Slight retropulsion. Facet hypertrophy. No significant canal or foraminal narrowing. L1-L2: Retropulsion of L1. Ligamentous and facet hypertrophy. Minimal canal stenosis. No significant foraminal narrowing. L2-L3: Ligamentous and facet hypertrophy. No significant canal or foraminal narrowing. L3-L4: Ligamentous and facet hypertrophy. No significant canal or foraminal narrowing. L4-L5: Mild disc bulge. Ligamentous and facet hypertrophy. No significant canal or foraminal narrowing. L5-S1: Disc bulge. Small endplate osteophytes. Facet hypertrophy. No significant canal stenosis. Mild foraminal narrowing, more so on the left. Procedure Note Reji Toro MD - 11/08/2024 [place] [id number] [place] [address] DATE: 11/06/2024 11:15 AM INDICATION: Compression fracture. Multiple myeloma. EXAMINATION: MRI lumbar spine without contrast. TECHNIQUE: Multiplanar and multisequence MRI images of the lumbar spine were obtainedwithout contrast. COMPARISON: Outside MRI 2024 FINDINGS: There are 5 lumbar type vertebral bodies designated as L1 through L5;using this numbering system, the conus medullaris terminates at L1 andappears unremarkable. There are multiple foci of abnormal T1 hypointensity and T2/STIRhyperintensity throughout the thoracolumbar and sacral spine as well aswithin the partially visualized pelvis, in keeping with history ofmultiple myeloma. Marrow replacing lesions involving both the vertebralbodies as well as the posterior elements. There has been some intervalimprovement with decrease in the degree of marrow signal heterogeneity anddecreased size of some of the more discrete marrow replacing lesions.Redemonstration of a presumed pathologic burst fracture involving the L7axgdodhla level with interval progression of vertebral body height loss(now greater than 75% centrally) but with similar degree of retropulsion.Slight kyphosis centered at the L1 level. The remainder of the lumbarvertebral alignment, vertebral body heights, and facet alignment aremaintained. Degenerative changes are evident in the lumbar spine with discdegeneration, endplate osteophytes, ligamentum flavum thickening, andfacet hypertrophy noted. Multilevel disc desiccation. Greatest loss ofdisc height at L5-S1. Imaged portions of the soft tissues reveal no acutefindings elsewhere. Colonic diverticulosis. T12-L1: Slight retropulsion. Facet hypertrophy. No significant canal orforaminal narrowing. L1-L2: Retropulsion of L1. Ligamentous and facet hypertrophy. Minimalcanal stenosis. No significant foraminal narrowing. L2-L3: Ligamentous and facet hypertrophy. No significant canal orforaminal narrowing. L3-L4: Ligamentous and facet hypertrophy. No significant canal orforaminal narrowing. L4-L5: Mild disc bulge. Ligamentous and facet hypertrophy. No significantcanal or foraminal narrowing. L5-S1: Disc bulge. Small endplate osteophytes. Facet hypertrophy. Nosignificant canal stenosis. Mild foraminal narrowing, more so on theleft. IMPRESSION: 1. Redemonstration of multiple marrow replacing lesions throughout thevisualized portions of the spine and partially visualized portions of thepelvis, in keeping with history of myeloma. Some improvement in marrowsignal and heterogeneity and decreased size of some of the myelomatouslesions. 2. Redemonstration of presumed pathologic burst fracture involving the T1abehlemev level. Interval progression of vertebral body height loss, nowgreater than 75 %. Similar retropulsion. 3. Multilevel degenerative changes in the lumbar spine as detailedabove. Ordered By: GUILHERME BOCANEGRA Interpreted By: Reji Toro MD, 11/08/2024 9:44 AM us Guilherme Bocanegra PA-C MRI Final Resu lt * CT HEAD WO CON (09/26/2024 6:49 PM VICE PRESIDENT [employer]) Anatomical Region Laterality Modality Head Computed Tomogra phy 09/26/2024 6:53 PM VICE PRESIDENT [employer]AIN Impressions 09/26/2024 6:55 PM VICE PRESIDENT [employer] CHAIN IMPRESSION: 1. ??No CT evidence of an acute intracranial abnormality. 2. ??Numerous lytic foci involving the calvarium and clivus that likely relate to known multiple myeloma. Nonemergent MRI brain examination with contrast could be beneficial for further characterization. Referred By: ?? Interpreted By: Juan David Garza MD, 09/26/2024 6:53 PM Narrative 09/26/2024 6:55 PM [employer]ICE PRES[employer] [address] [place] [address] EXAMINATION: CT HEAD WO CON, 09/26/2024 6:53 PM TECHNIQUE: Computed tomographic images of the head were obtained without intravenous contrast. Additional coronal and sagittal reformatted images were generated. A dose lowering technique was used for this procedure, which may include, but is not limited to, dose reduction technique, automated exposure control, the use of iterative reconstruction, and ALARA (As Low As Reasonably Achievable) / Image Gently techniques. HISTORY: Blurred vision, light sensitivity for 2 weeks. ??Undergoing treatment for multiple myeloma COMPARISON: None available FINDINGS: There is no acute intracranial hemorrhage. ??There is no extra-axial fluid collection. ??Preserved person-white matter differentiation. ??The ventricles are normal in size. ??The basal cisterns appear normal. ??Orbital contents appear normal. ??Numerous focal areas of lytic lucency involving the calvaria, the largest involving the right lateral margin of the frontal calvarium measuring up to 2.2 cm in size (best seen on series 3 image 28) that Kerens relates to known multiple myeloma. ??Additional 1.4 cm lytic focus involving the clivus (best seen on series 6 image 25). Procedure Note Juan David Garza MD - 09/26/2024 [facility] [address] [place] [address] EXAMINATION: CT HEAD WO CON, 09/26/2024 6:53 PM TECHNIQUE: Computed tomographic images of the head were obtained withoutintravenous contrast. Additional coronal and sagittal reformatted imageswere generated. A dose lowering technique was used for this procedure,which may include, but is not limited to, dose reduction technique,automated exposure control, the use of iterative reconstruction, and ALARA(As Low As Reasonably Achievable) / Image Gently techniques. HISTORY: Blurred vision, light sensitivity for 2 weeks. Undergoingtreatment for multiple myeloma COMPARISON: None available FINDINGS: There is no acute intracranial hemorrhage. There is noextra-axial fluid collection. Preserved person-white matterdifferentiation. The ventricles are normal in size. The basal cisternsappear normal. Orbital contents appear normal. Numerous focal areas oflytic lucency involving the calvaria, the largest involving the rightlateral margin of the frontal calvarium measuring up to 2.2 cm in size(best seen on series 3 image 28) that Kerens relates to known multiplemyeloma. Additional 1.4 cm lytic focus involving the clivus (best seen onseries 6 image 25). IMPRESSION: 1. No CT evidence of an acute intracranial abnormality. 2. Numerous lytic foci involving the calvarium and clivus that likelyrelate to known multiple myeloma. Nonemergent MRI brain examination withcontrast could be beneficial for further characterization. Referred By: Interpreted By: Juan David Garza MD, 09/26/2024 6:53 PM us Sam Jackson DO CT Final Res ult * MG SCREENING W LEONORA GILBERT DIGI (04/13/2021 1:10 PM CDT) Anatomical Region Laterality Modality Breast Bilateral Mammography 04/13/2021 1:35 PM CDT Impressions 04/13/2021 1:36 PM CDT IMPRESSION: No suspicious mammographic findings. Recommendation: 1. Routine Screening, Bilateral Assessment: ACR BI-RADS 1 - NEGATIVE Referred By: JOVITA BARTLETT Interpreted By: Salinas Davis MD, 04/13/2021 1:35 PM Narrative 04/13/2021 1:36 PM CDT Examination: Screening bilateral mammogram Exam Date: 04/13/2021 1:10 PM Clinical history: Routine screening. No complaints. Patient has gained 20 pounds in the interim. Comparison: 11/27/2014, 09/12/2012, 01/06/2011 Technique: Digital screening mammography of both breasts was performed. Breast tomosynthesis acquisitions were obtained and reviewed. ??This study was read with the assistance of a computer-aided detection system. Tissue density: There are scattered areas of fibroglandular density. Findings: No suspicious masses, malignant appearing calcifications, skin thickening or other abnormalities are present. ??No significant change from the prior exam. Jovita Bartlett MANAGER CREATIVE MAMMO Final Result from Last 3 Months or Most Recently Relevant to Health Maintenance Insurance [employer], [facility] Care Teams Event Technician Relationship Specialty Start Date End Date Carri Kohli APNP [address] [place] [address] PCP - General 06/08/24
--- OUTSIDE RECORDS SUMMARY | 2024-11-20 09:29 | XMS_ITS | Encounter Summary ---
Author Organization [facility] Address [address] [place] [address] Phone Care Team Providers Care Fiberglass Pipe Covering Supervisor Name Role Phone Maria Luisa Dupree MD Unavailable [phone] Carri Kohli NP Primary Care Provider [phone] Cesar Solis MD Unavailable [phone] Reason for Referral * Consultation (Urgent) - Pending Review Specialty Diagnoses / Procedures Referred By Contac t Referred To Contact Cardiology Diagnoses Multiple myeloma not having achieved remission (CMS/HCC) (HCC) Abnormal echocardiogram Cesar Solis MD [address] DIV IM BONE MARROW TRANSPLANT, [address] [place] [address] Phone: tel: fax: [facility] (All Locations) Referral ID Status Reason Start Date Expiration Date Visits Requested Visits Authorized [id number] Pending Review Specialty Services Required 11/19/2024 12/19/2025 1 1 Scheduling Instructions Cardio oncology please, pt with abnormal strain on echo and abnormal EKG, pt scheduled to start stem cell process 12/06/24 Question Answer Please select the performing region: [facility] (All Locations) [[id number]] Is this referral for the [facility]? No Is this referral for the [facility]? No # of visits: 1 ICAL AUDITOR Encounter Details Date Type Department Care Team (Late st Contact Info) Description 11/19/2024 Orders Only [facility] Bone Marrow Transplant [address] [facility] [address] [place] [address] Cesar Solis MD [address] IM BONE MARROW TRANSPLANT, [address] [place] [address] Autologous donor of stem cells (Primary Dx); Multiple myeloma not having achieved remission (CMS/HCC) (HCC); Abnormal echocardiogram Social History Tobacco Use Types Packs/Day Years Used Date Smoking Tobacco: Former Cigarettes Smokeless Tobacco: Never [facility] Utilities Answer Date Recorded In the past 12 months has [employer], gas, oil, or water company threatened to [...] often do you attend chur ch or baptist services? 1 to 4 times per year 11/15/2024 Do you belong to any clubs o r organizations such as spiritism groups, unions, fraternal or athletic groups, or [...] any time in the past 12 m [facility], were you homeless or living in a correction (including now)? No 11/15/2024 Personal Safety Answer Date Recorded Have you ever been in or are you currently in a harmful physical or emotional relationship or is someone making you feel afraid or unsafe? Denies 11/14/2024 Comments Unknown Sex and Gender Information Value Date Recorded Sex Assigned at Not on file Legal Sex Female 1:22 PM CLINICAL AUDITOR Gender Identity Not on file Sexual Orientation Not on file documented as of this encounter Ordered Prescriptions Prescription Sig Dispense Quantity Refills Last Filled Start Date End Date montelukast (SINGULAIR) 10 mg tabletIndications: Autologous donor of stem cells,Multiple myeloma not having achieved remission (CMS/HCC) (HCC) Take 1 tablet (10 mg total) by mouth daily Take at least 30 minutes prior to your first filgrastim injection starting 12/06/24, Continue daily until two days after your last filgrastim injection. 10 tablet 12/05/2024 loratadine (CLARITIN) 10 mg tabletIndications: Autologous donor of stem cells,Multiple myeloma not having achieved remission (CMS/HCC) (HCC) Take 1 tablet (10 mg total) by mouth daily Take at least 30 minutes prior to your first filgrastim injection starting 12/06/24, Continue daily until two days after your last filgrastim injection. 10 tablet 12/05/2024 famotidine (PEPCID) 20 mg tabletIndications: Autologous donor of stem cells,Multiple myeloma not having achieved remission (CMS/HCC) (HCC) Take 1 tablet (20 mg total) by mouth daily Take at least 30 minutes prior to your first filgrastim injection starting on 12/06/24. Continue daily until two days after your last filgrastim injection. 10 tablet 12/05/2024 documented in this encounter Plan of Treatment Scheduled Referrals Name Type Priority Associated Diagnoses Orde r Schedule Ambulatory referral to Cardiology Outpatient Referral Urgent Multiple myeloma not having achieved remission (CMS/HCC) (HCC) Abnormal echocardiogram Expected: 11/26/2024 (Approximate), Expires: 11/19/2025 documented as of this encounter Visit Diagnoses Diagnosis Autologous donor of stem cells- Primary Multiple myeloma not having achieved remission (CMS/HCC) (HCC) Abnormal echocardiogram Nonspecific (abnormal) findings on radiological and other examination of other intrathoracic organs documented in this encounter Care Teams Fiberglass Pipe Covering Supervisor Relationship Specialty Start Date End Date Carri Kohli NP [address] [facility] [place] [place] [address] PCP - General Family Medicine 09/18/24 Maria Luisa Dupree MD [address] [place] [address] Referring Physician Internal Medicine 09/18/24 Cesar Solis MD [address] [facility] [address] DIV IM BONE MARROW TRANSPLANT, , [place] [address] Consulting Physician Medical Oncology 09/23/24 documented as of this encounter
--- OUTSIDE RECORDS SUMMARY | 2024-11-20 09:29 | XMS_ITS | Referral Summary ---
Author Organization [address] Address [address] [place] [phone] Care Team Providers Care Professional Nursing Tutor Name Role Phone Maria Luisa Dupree MD Unavailable Carri Kohli NP Primary Care Provider [phone] Toby Soto MD Unavailable [phone] Encounters Date Type Department Care Team Description 11/19/2024 Orders Only [facility] Bone Marrow Transplant [address] [place] [address] Floor 6 [place] [address] Toby Soto MD Autologous donor of stem cells (Primary Dx); Multiple myeloma not having achieved remission (CMS/HCC) (HCC); Abnormal echocardiogram 11/14/2024 3:04 PM GLOBAL ACCOUNT DIRECTOR - 11/14/2024 11:59 PM GLOBAL ACCOUNT DIRECTOR Hospital Encounter [facility] [address] [place] [address] Multiple myeloma not having achieved remission (CMS/HCC) (HCC) Discharge Disposition: Discharge to home or self care 11/14/2024 3:04 PM GLOBAL ACCOUNT DIRECTOR - 11/14/2024 11:59 PM GLOBAL ACCOUNT DIRECTOR Hospital Encounter [facility] [address] [place] [address] Multiple myeloma not having achieved remission (CMS/HCC) (HCC) Discharge Disposition: Discharge to home or self care 11/14/2024 10:45 AM GLOBAL ACCOUNT DIRECTOR Clinical Support [facility] [place] - Lab Collection [address] [facility] Floor 6 [place] [address] Multiple myeloma not having achieved remission (CMS/HCC) (HCC) 11/14/2024 11:15 AM GLOBAL ACCOUNT DIRECTOR Lab [facility] Oncology Lab [address] [facility] Floor 6 [place] [address] 11/14/2024 2:00 PM GLOBAL ACCOUNT DIRECTOR Social Work [facility] [address] [facility], 8th Floor, [place] [address] Joy Johnson LCSW 11/14/2024 12:38 PM GLOBAL ACCOUNT DIRECTOR - 11/14/2024 11:59 PM GLOBAL ACCOUNT DIRECTOR Hospital Encounter [facility] Pheresis [address] [facility] [address], [place] [phone] Multiple myeloma not having achieved remission (CMS/HCC) (HCC) Discharge Disposition: Discharge to home or self care 11/14/2024 7:20 AM GLOBAL ACCOUNT DIRECTOR - 11/14/2024 11:59 PM GLOBAL ACCOUNT DIRECTOR Hospital Encounter [facility] PFT Lab [address] [facility] Floor 1, [address] [place] [phone] Multiple myeloma not having achieved remission (CMS/HCC) (HCC) Discharge Disposition: Discharge to home or self care 11/14/2024 8:24 AM GLOBAL ACCOUNT DIRECTOR - 11/14/2024 11:59 PM GLOBAL ACCOUNT DIRECTOR Hospital Encounter [facility] - Cardiac Diagnostic Lab [address] [facility] [place] [address] Multiple myeloma not having achieved remission (CMS/HCC) (HCC) Discharge Disposition: Discharge to home or self care 11/07/2024 Orders Only [facility] Bone Marrow Transplant [address] [facility] Floor 6 [place] [phone] Toby Soto MD Autologous donor of stem cells (Primary Dx); Multiple myeloma not having achieved remission (CMS/HCC) (HCC) 10/30/2024 Orders Only [facility] 1 [place] [phone] Kate Newell Multiple myeloma not having achieved remission (CMS/HCC) (HCC) (Primary Dx) 10/17/2024 Orders Only [facility] Bone Marrow Transplant [address] [facility] Floor 6 [place] [address] Toby Soto MD Multiple myeloma not having achieved remission (CMS/HCC) (HCC) (Primary Dx) 10/17/2024 Orders Only [facility] Bone Marrow Transplant [address] [place] [phone] Toby Soto MD Multiple myeloma not having achieved remission (CMS/HCC) (HCC) (Primary Dx) 10/09/2024 Orders Only [facility] ONCOLOGY Scanning, Provider 10/08/2024 Treatment [facility] PATHOLOGY [address] [address] Danika Metcalf, 10/07/2024 11:45 AM GLOBAL ACCOUNT DIRECTOR Lab [facility] - Lab Collection [address] [place] [address] Multiple myeloma not having achieved remission (CMS/HCC) (HCC) 10/07/2024 12:00 PM GLOBAL ACCOUNT DIRECTOR Lab [facility] Oncology Lab [address] [place] [phone] 10/07/2024 1:00 PM GLOBAL ACCOUNT DIRECTOR Office Visit [facility] Bone Marrow Transplant [address] [place] [phone] Toby Soto MD Multiple myeloma not having achieved remission (CMS/HCC) (HCC) 10/03/2024 Orders Only [facility] Bone Marrow Transplant [address] [place] [phone] Toby Soto MD Multiple myeloma not having achieved remission (CMS/HCC) (HCC) (Primary Dx) 09/23/2024 Orders Only [facility] Oncology [address] [place] [phone] Toby Soto MD Multiple myeloma not having achieved remission (CMS/HCC) (HCC) (Primary Dx) from Last 3 Months Allergies Active Allergy Reactions Criticality Noted Date [...] 11/07/2024 Autologous donor of stem cells 11/07/2024 Immunizations Name Administration Dates Next Due Influenza, Quadrivalent, Chloé l Culture-based MDCK, Preservative Free, Antibiotic Free, Intramuscular 08/27/2021 Influenza, Quadrivalent, Rec ombinant, Egg Free, Preservative Free, Intramuscular 07/16/2020 Pneumococcal Polysaccharide PPV23 02/13/2019 Tdap 02/13/2019 ZOSTER Recombinant 08/28/2020,07/16/2020 Social History Tobacco Use Types Packs/Day Years Used Date Smoking Tobacco: Former Cigarettes Smokeless Tobacco: Never Tobacco Cessation:Counseling Given: Not Answered [facility] Utilities Answer Date Recorded In the past 12 months has [employer], [employer], [employer], or water [employer] threatened to shut off services in your [...] often do you attend chur ch or islam services? 1 to 4 times per year 11/15/2024 Do you belong to any clubs o r organizations such as mosque groups, unions, fraternal or athletic groups, or [...] any time in the past 12 m [facility], were you homeless or living in a fdc (including now)? No 11/15/2024 Personal Safety Answer Date Recorded Have you ever been in or are you currently in a harmful physical or emotional relationship or is someone making you feel afraid or unsafe? Denies 11/14/2024 Comments Unknown Sex and Gender Information Value Date Recorded Sex Assigned at Not on file Legal Sex Female 1:22 PM GLOBAL ACCOUNT DIRECTOR Gender Identity Not on file Sexual Orientation Not on file Last Filed Vital Signs Vital Sign Reading Time Taken Comments Blood Pressure 108/66 10/07/2024 12:31 PM GLOBAL ACCOUNT DIRECTOR Pulse 69 10/07/2024 12:31 PM GLOBAL ACCOUNT DIRECTOR Temperature 36.4 ??C (97.5 ??F) 10/07/2024 12:[address] Respiratory Rate 18 10/07/2024 12:31 PM GLOBAL ACCOUNT DIRECTOR Oxygen Saturation 98% 10/07/2024 12:31 PM GLOBAL ACCOUNT DIRECTOR Inhaled Oxygen Concentration - - Weight 78.9 kg (174 lb) 11/14/2024 1:07 PM GLOBAL ACCOUNT DIRECTOR Height 165.1 cm (5' 5 ) 11/14/2024 1:07 PM GLOBAL ACCOUNT DIRECTOR Body Mass Index 28.96 11/14/2024 1:07 PM GLOBAL ACCOUNT DIRECTOR Plan of Treatment Not on file Procedures Procedure Name Priority Date/Time Associated Diagnosis Comments ECG 12-LEAD Routine 11/14/2024 3:29 PM GLOBAL ACCOUNT DIRECTOR Multiple myeloma not having achieved remission (CMS/HCC) (HCC) XR CHEST PA LATERAL 2 VIEWS Schedule Routine, Read Routine (OP Routine) 11/14/2024 3:12 PM GLOBAL ACCOUNT DIRECTOR Multiple myeloma not having achieved remission (CMS/HCC) (HCC) EGFR Routine 11/14/2024 10:50 AM GLOBAL ACCOUNT DIRECTOR Multiple myeloma not having achieved remission (CMS/HCC) (HCC) DIFFERENTIAL AUTO Routine 11/14/2024 10: 50 AM GLOBAL ACCOUNT DIRECTOR Multiple myeloma not having achieved remission (CMS/HCC) (HCC) CBC WITH AUTO DIFFERENTIAL Routine 11/14/2024 10:50 AM GLOBAL ACCOUNT DIRECTOR Multiple myeloma not having achieved remission (CMS/HCC) (HCC) COMPREHENSIVE METABOLIC PANEL Routine 11/14/2024 10:50 AM GLOBAL ACCOUNT DIRECTOR Multiple myeloma not having achieved remission (CMS/HCC) (HCC) IGA Routine 11/14/2024 10:50 AM GLOBAL ACCOUNT DIRECTOR Multiple myeloma not having achieved remission (CMS/HCC) (HCC) IGG Routine 11/14/2024 10:50 AM GLOBAL ACCOUNT DIRECTOR Multiple myeloma not having achieved remission (CMS/HCC) (HCC) IGM Routine 11/14/2024 10:50 AM GLOBAL ACCOUNT DIRECTOR Multiple myeloma not having achieved remission (CMS/HCC) (HCC) IMMUNOGLOBULIN FREE LIGHT CHAINS Routine 11/14/2024 10:50 AM GLOBAL ACCOUNT DIRECTOR Multiple myeloma not having achieved remission (CMS/HCC) (HCC) LACTATE DEHYDROGENASE Routine 11/14/2024 10:50 AM GLOBAL ACCOUNT DIRECTOR Multiple myeloma not having achieved remission (CMS/HCC) (HCC) PROTEIN ELECTROPHORESIS, WITH REFLEX, SERUM Routine 11/14/2024 10:50 AM GLOBAL ACCOUNT DIRECTOR Multiple myeloma not having achieved remission (CMS/HCC) (HCC) IMMUNOTYPING Routine 11/14/2024 10:50 AM GLOBAL ACCOUNT DIRECTOR Multiple myeloma not having achieved remission (CMS/HCC) (HCC) PROTIME-INR Routine 11/14/2024 10:50 AM GLOBAL ACCOUNT DIRECTOR Multiple myeloma not having achieved remission (CMS/HCC) (HCC) APTT Routine 11/14/2024 10:50 AM GLOBAL ACCOUNT DIRECTOR Multiple myeloma not having achieved remission (CMS/HCC) (HCC) SICKLE CELL SCREEN Routine 11/14/2024 10 :50 AM GLOBAL ACCOUNT DIRECTOR Multiple myeloma not having achieved remission (CMS/HCC) (HCC) TRIGLYCERIDES Routine 11/14/2024 10:50 AM GLOBAL ACCOUNT DIRECTOR Multiple myeloma not having achieved remission (CMS/HCC) (HCC) TYPE AND SCREEN Routine 11/14/2024 10:50 AM GLOBAL ACCOUNT DIRECTOR Multiple myeloma not having achieved remission (CMS/HCC) (HCC) URIC ACID Routine 11/14/2024 10:50 AM GLOBAL ACCOUNT DIRECTOR Multiple myeloma not having achieved remission (CMS/HCC) (HCC) BMT DONOR EVALUATION Routine 11/14/2024 10:50 AM GLOBAL ACCOUNT DIRECTOR Multiple myeloma not having achieved remission (CMS/HCC) (HCC) MAGNESIUM Routine 11/14/2024 10:50 AM GLOBAL ACCOUNT DIRECTOR Multiple myeloma not having achieved remission (CMS/HCC) (HCC) HSV 1 ANTIBODY, IGG Routine 11/14/2024 1 0:50 AM GLOBAL ACCOUNT DIRECTOR Multiple myeloma not having achieved remission (CMS/HCC) (HCC) HSV 2 ANTIBODY, IGG Routine 11/14/2024 1 0:50 AM GLOBAL ACCOUNT DIRECTOR Multiple myeloma not having achieved remission (CMS/HCC) (HCC) TRANSTHORACIC ECHO (TTE) COMPLETE W DOPPLER/CF W CONTRAST Routine 11/14/2024 10:40 AM GLOBAL ACCOUNT DIRECTOR Multiple myeloma not having achieved remission (CMS/HCC) (HCC) PULMONARY FUNCTION TEST (PFT) Routine 11/14/2024 7:49 AM GLOBAL ACCOUNT DIRECTOR Multiple myeloma not having achieved remission (CMS/HCC) (HCC) SCAN - PATHOLOGY 10/09/2024 12:3 6 PM GLOBAL ACCOUNT DIRECTOR ANTIBODY IDENTIFICATION Timed 10/07/2024 3:12 PM GLOBAL ACCOUNT DIRECTOR B K ANTIGEN TYPE Routine 10/07/2024 12:1 4 PM GLOBAL ACCOUNT DIRECTOR IMMUNOTYPING STAT 10/07/2024 12:14 PM GLOBAL ACCOUNT DIRECTOR Multiple myeloma not having achieved remission (CMS/HCC) (HCC) EGFR STAT 10/07/2024 12:14 PM GLOBAL ACCOUNT DIRECTOR Multiple myeloma not having achieved remission (CMS/HCC) (HCC) DIFFERENTIAL AUTO STAT 10/07/2024 12: 14 PM GLOBAL ACCOUNT DIRECTOR Multiple myeloma not having achieved remission (CMS/HCC) (HCC) BETA 2 MICROGLOBULIN SERUM STAT 10/07/2024 12:14 PM GLOBAL ACCOUNT DIRECTOR Multiple myeloma not having achieved remission (CMS/HCC) (HCC) CBC WITH AUTO DIFFERENTIAL STAT 10/07/2024 12:14 PM GLOBAL ACCOUNT DIRECTOR Multiple myeloma not having achieved remission (CMS/HCC) (HCC) COMPREHENSIVE METABOLIC PANEL STAT 10/07/2024 12:14 PM GLOBAL ACCOUNT DIRECTOR Multiple myeloma not having achieved remission (CMS/HCC) (HCC) IGA STAT 10/07/2024 12:14 PM GLOBAL ACCOUNT DIRECTOR Multiple myeloma not having achieved remission (CMS/HCC) (HCC) IGG STAT 10/07/2024 12:14 PM GLOBAL ACCOUNT DIRECTOR Multiple myeloma not having achieved remission (CMS/HCC) (HCC) IGM STAT 10/07/2024 12:14 PM GLOBAL ACCOUNT DIRECTOR Multiple myeloma not having achieved remission (CMS/HCC) (HCC) IMMUNOGLOBULIN FREE LIGHT CHAINS STAT 10/07/2024 12:14 PM GLOBAL ACCOUNT DIRECTOR Multiple myeloma not having achieved remission (CMS/HCC) (HCC) LACTATE DEHYDROGENASE STAT 10/07/2024 12:14 PM GLOBAL ACCOUNT DIRECTOR Multiple myeloma not having achieved remission (CMS/HCC) (HCC) PROTEIN ELECTROPHORESIS, WITH REFLEX, SERUM STAT 10/07/2024 12:14 PM GLOBAL ACCOUNT DIRECTOR Multiple myeloma not having achieved remission (CMS/HCC) (HCC) LIPID PANEL Routine 10/07/2024 12:14 PM GLOBAL ACCOUNT DIRECTOR Multiple myeloma not having achieved remission (CMS/HCC) (HCC) MAGNESIUM Routine 10/07/2024 12:14 PM GLOBAL ACCOUNT DIRECTOR Multiple myeloma not having achieved remission (CMS/HCC) (HCC) PROTIME-INR Routine 10/07/2024 12:14 PM GLOBAL ACCOUNT DIRECTOR Multiple myeloma not having achieved remission (CMS/HCC) (HCC) APTT Routine 10/07/2024 12:14 PM GLOBAL ACCOUNT DIRECTOR Multiple myeloma not having achieved remission (CMS/HCC) (HCC) SICKLE CELL SCREEN Routine 10/07/2024 12 :14 PM GLOBAL ACCOUNT DIRECTOR Multiple myeloma not having achieved remission (CMS/HCC) (HCC) TYPE AND SCREEN Routine 10/07/2024 12:14 PM GLOBAL ACCOUNT DIRECTOR Multiple myeloma not having achieved remission (CMS/HCC) (HCC) URIC ACID Routine 10/07/2024 12:14 PM GLOBAL ACCOUNT DIRECTOR Multiple myeloma not having achieved remission (CMS/HCC) (HCC) BMT DONOR EVALUATION Routine 10/07/2024 12:14 PM GLOBAL ACCOUNT DIRECTOR Multiple myeloma not having achieved remission (CMS/HCC) (HCC) HEMOGLOBIN A1C Routine 10/07/2024 12:14 PM GLOBAL ACCOUNT DIRECTOR Multiple myeloma not having achieved remission (CMS/HCC) (HCC) HSV 1 ANTIBODY, IGG Routine 10/07/2024 1 2:14 PM GLOBAL ACCOUNT DIRECTOR Multiple myeloma not having achieved remission (CMS/HCC) (HCC) HSV 2 ANTIBODY, IGG Routine 10/07/2024 1 2:14 PM GLOBAL ACCOUNT DIRECTOR Multiple myeloma not having achieved remission (CMS/HCC) (HCC) from Last 3 Months Results * ECG 12 lead (11/14/2024 3:29 PM GLOBAL ACCOUNT DIRECTOR) Ventricular Rate EKG/Min 67 BPM [facility] Atrial Rate 67 BPM [facility] WI-Interval (MSEC) 108 ms [facility] QRS-Interval (MSEC) 70 ms [facility] QT-Interval (MSEC) 490 ms [facility] QTc 517 ms [facility] P [place] 54 degrees [facility] R [place] 22 degrees [facility] T [place] 54 degrees [facility] Diagnosis Sinus rhythm with Premature supraventricular complexes Possible Left atrial enlargement Prolonged QT Abnormal ECG No previous ECGs available Confirmed by Tae Sauceda MD ([id number]) on 11/16/2024 12:13:39 PM [facility] 11/14/2024 3:29 PM GLOBAL ACCOUNT DIRECTOR 11/16/2024 12:13 PM GLOBAL ACCOUNT DIRECTOR us Toby Soto MD ECG ORDERABLES Final R esult [facility] * XR Chest Pa Lateral 2 Views (11/14/2024 3:12 PM GLOBAL ACCOUNT DIRECTOR) Anatomical Region Laterality Modality Body, Chest N/A Computed Radiogr aphy 11/14/2024 3:59 PM GLOBAL ACCOUNT DIRECTOR Impressions 11/14/2024 9:26 PM GLOBAL ACCOUNT DIRECTOR No prior radiograph is available for comparison. [...] Henrique Burks M.D. Narrative 11/14/2024 9:26 PM GLOBAL ACCOUNT DIRECTOR EXAMINATION: 2 view chest radiograph Procedure Note [...] Result * Immunotyping, serum (11/14/2024 10:50 AM GLOBAL ACCOUNT DIRECTOR) Immunosubtraction Please see comment Comment: IGG KAPPA PARAPROTEIN Reviewed and signed by Amol Hopkins MD 11/15/2024 Blood 11/14/2024 10:5 0 AM GLOBAL ACCOUNT DIRECTOR 11/14/2024 12:55 PM GLOBAL ACCOUNT DIRECTOR us Toby Soto MD LAB BLOOD ORDERABLES Fi nal Result Performing Organization Address City/[facility]/ZIP Co de Phone Number LEMUEL RANDALL [facility] Department [place] [address] * eGFR (11/14/2024 10:50 AM GLOBAL ACCOUNT DIRECTOR) eGFR 89 >=60 mL/min/1. 73 m2 Comment: [...] reviewed 2021. Blood 11/14/2024 10:5 0 AM GLOBAL ACCOUNT DIRECTOR 11/14/2024 11:03 AM GLOBAL ACCOUNT DIRECTOR us Toby Soto MD LAB BLOOD ORDERABLES Fi nal Result Performing Organization Address [facility]/ZIP Co de Phone Number LEMUEL [facility] Department [place] [address] * (ABNORMAL) Differential, auto (11/14/2024 10:50 AM GLOBAL ACCOUNT DIRECTOR) Neutrophil abs 2.7 1.5 - 6.5 K/cumm Comment:Testing performed by : [facility] Heme Lab, [address] [place] [address] Lymphocyte abs 0.5(L) 0.8 - 3.3 K/cumm [facility] Comment:Testing performed by : [facility]e [facility], [address] [place], [place] [id number] Monocyte abs 0.9(H) 0.2 - 0.8 K/cumm [facility] Comment:Testing performed by : [facility], [address] [place], [place] [id number] Eosinophil abs 0.0 0.0 - 0.5 K/cumm [facility] Comment:Testing performed by : [facility] Lab, [address] [place], [place] [id number] Basophil abs 0.0 0.0 - 0.1 K/cumm [facility] Comment:Testing performed by : [facility] Heme [facility], [address] [place] [phone] Neutrophil pct 65.6 % [facility] Comment: Interpretive Data Percent cell count reference ranges are not reported, since discordance with absolute values may lead to misinterpretation of CBC data. Current Interpretive Data was last revised on 2018. Testing performed by: [facility] Lab, [address] [place] [phone] Lymphocyte pct 13.3 % [facility] Comment: Interpretive Data Percent cell count reference ranges are not reported, since discordance with absolute values may lead to misinterpretation of CBC data. Current Interpretive Data was last revised on 2018. Testing performed by: [facility] Lab, [address] [place] [phone] Monocyte pct 20.9 % [facility] Comment: Interpretive Data Percent cell count reference ranges are not reported, since discordance with absolute values may lead to misinterpretation of CBC data. Current Interpretive Data was last revised on 2018. Testing performed by: [facility] Heme [facility], [address] [place] [phone] Eosinophil pct 0.0 % [facility] Comment: Interpretive Data Percent cell count reference ranges are not reported, since discordance with absolute values may lead to misinterpretation of CBC data. Current Interpretive Data was last revised on 2018. Testing performed by: [facility] Heme [facility], [address] [place] [phone] Basophil pct 0.2 % [facility] Comment: Interpretive Data Percent cell count reference ranges are not reported, since discordance with absolute values may lead to misinterpretation of CBC data. Current Interpretive Data was last revised on 2018. Testing performed by: [facility] Heme [facility], [address] [place] [phone] Blood 11/14/2024 10:5 0 AM GLOBAL ACCOUNT DIRECTOR 11/14/2024 11:01 AM GLOBAL ACCOUNT DIRECTOR Toby Soto MD LAB BLOOD ORDERABLES Fi nal Result [facility] Department [place] [address] * BMT donor evaluation (11/14/2024 10:50 AM GLOBAL ACCOUNT DIRECTOR) Hep B surf Ag, donor Negative Negative [facility] Hep B core Ab, donor Negative Negative [facility] Hep C Ab, donor Negative Negative [facility] HIV 1-2 Ab, donor Negative Negative [facility] HTLV I/II Ab, donor Negative Negative [facility] Syphilis testing, donor Negative Negative [facility] HIV KIM, donor Negative Negative [facility] HCV KIM, donor Negative Negative [facility] HBV KIM, donor Negative Negative [facility] WNV KIM, donor Negative Negative [facility] CMV testing, donor Negative Negative [facility] Comment: Interpretive Data Testing performed by [facility] [place] [address] CLIA [id number] ??Panel consists of testing for Hepatitis B, Hepatitis C, HIV, HTLV, Syphilis, CMV, West Nile Virus and Chagas disease.Current interpretive data was last revised on 2022. Chagas testing, donor Negative Negative [facility] Blood 11/14/2024 10:5 0 AM GLOBAL ACCOUNT DIRECTOR 11/14/2024 12:32 PM GLOBAL ACCOUNT DIRECTOR Result [facility] Toby Soto MD LAB BLOOD ORDERABLES Fi nal Result Performing Organization Address [facility] de Phone Number [facility] [place] [address] * (ABNORMAL) Immunoglobulin free light chains (11/14/2024 10:50 AM GLOBAL ACCOUNT DIRECTOR) [place]/Lambda ratio [facility] 1.25 0.26 - 1.65 Comment: Interpretive Data The Binding Site FreeLite assay procedure was used. Results from different manufacturers or methods may not be comparable. Serial testing should be performed using the same methods and instrumentation. Current Interpretive Data was last revised on 2023. [place] free light chain [facility] 0.66 0.33 - 1.94 mg/dL [facility] Comment: Interpretive Data The Binding Site FreeLite assay procedure was used. Results from different manufacturers or methods may not be comparable. Serial testing should be performed using the same methods and instrumentation. Current Interpretive Data was last revised on 2023. Lambda free light chain [facility] 0.53(L) 0.57 - 2.63 mg/dL [facility] Comment: Interpretive Data The Binding Site FreeLite assay procedure was used. Results from different manufacturers or methods may not be comparable. Serial testing should be performed using the same methods and instrumentation. Current Interpretive Data was last revised on 2023. Blood 11/14/2024 10:5 0 AM GLOBAL ACCOUNT DIRECTOR 11/14/2024 12:55 PM GLOBAL ACCOUNT DIRECTOR Toby Soto MD LAB BLOOD ORDERABLES Fi nal Result Performing Organization Address City/[facility]/ZIP Co de Phone Number [facility] [place] [address] * (ABNORMAL) CBC with auto differential (11/14/2024 10:50 AM GLOBAL ACCOUNT DIRECTOR) WBC 4.1 3.8 - 9.9 K/cumm Comment:Testing performed by : [facility]e [facility], [address] [place] [address] Hgb 10.3(L) 11.9 - 15.5 g/dL [facility] Comment:Testing performed by : [facility]e [facility], [address] [place] [address] Hct 31.5(L) 35.6 - 45.5 % [facility] Comment:Testing performed by : [facility], [address] [place], [place] [phone] Plt 102(L) 150 - 400 K/cumm [facility] Comment:Testing performed by : [facility], [address] [place] [address] MPV 12.9(H) 6.8 - 10.4 fL [facility] Comment:Testing performed by : [facility], [address] [place] [address] RBC 3.39(L) 3.90 - 5.20 M/cumm [facility] Comment:Testing performed by : [facility], [address] [place] [address] MCV 93.1 81.3 - 96.4 fL [facility] Comment:Testing performed by : [facility], [address] [place] [address] MCH 30.4 27.1 - 33.3 pg [facility] Comment:Testing performed by : [facility], [address] [place] [address] MCHC 32.6 32.3 - 35.7 g/dL [facility] Comment:Testing performed by : [facility], [address] [place] [address] RDW CV 19.8(H) 11.1 - 14.9 % [facility] Comment:Testing performed by : [facility], [address] [place] [address] NRBC abs 0.00 0.00 - 0.01 K/cumm [facility] Comment:Testing performed by : [facility], [address] [place] [phone] Blood 11/14/2024 10:5 0 AM GLOBAL ACCOUNT DIRECTOR 11/14/2024 11:01 AM GLOBAL ACCOUNT DIRECTOR Toby Soto MD LAB BLOOD ORDERABLES Fi nal Result Performing Organization Address [facility] [place] [address] * (ABNORMAL) HSV 2 IgG Antibody Blood (11/14/2024 10:50 AM GLOBAL ACCOUNT DIRECTOR) HSV 2 IgG Equivocal (A) Nonreactive Comment: Interpretive Data 1. Nonreactive: No detectable IgG antibody to HSV-2. 2. Equivocal: Presence or absence of detectable antibodies to HSV-2 cannot be determined and the test should be repeated. 3. Reactive: Indicates presence of detectable IgG antibody to HSV-2. Current interpretive data was last revised on 2023. Blood 11/14/2024 10:5 0 AM GLOBAL ACCOUNT DIRECTOR 11/14/2024 12:55 PM GLOBAL ACCOUNT DIRECTOR Toby Soto MD LAB MICROBIOLOGY - GENE RAL ORDERABLES Final Result Performing Organization Address [facility] [place] [address] * (ABNORMAL) HSV 1 IgG Antibody Blood (11/14/2024 10:50 AM GLOBAL ACCOUNT DIRECTOR) HSV 1 IgG Reactive( A) Nonreactive Comment: Interpretive Data 1. Nonreactive: No detectable IgG antibody to HSV-1. 2. Equivocal: Presence or absence of detectable antibodies to HSV-1 cannot be determined and the test should be repeated. 3. Reactive: Indicates presence of detectable IgG antibody to HSV-1. Current interpretive data was last revised on 2017. Blood 11/14/2024 10:5 0 AM GLOBAL ACCOUNT DIRECTOR 11/14/2024 12:55 PM GLOBAL ACCOUNT DIRECTOR Toby Soto MD LAB MICROBIOLOGY - GENE RAL ORDERABLES Final Result Performing Organization Address [facility] Co de Phone Number [facility] [place] [address] * Sickle cell screen (11/14/2024 10:50 AM GLOBAL ACCOUNT DIRECTOR) Sickle cell, solubility Negative Negative Comment: Interpretive [...] on 2019. Blood 11/14/2024 10:5 0 AM GLOBAL ACCOUNT DIRECTOR 11/14/2024 12:55 PM GLOBAL ACCOUNT DIRECTOR Toby Soto MD LAB BLOOD ORDERABLES Fi nal Result Performing Organization Address [facility] de Phone Number [facility] [place] [address] * aPTT (11/14/2024 10:50 AM GLOBAL ACCOUNT DIRECTOR) [facility] aPTT 28 28 - 38 sec Comment: Interpretive Data Heparin therapeutic range: 66.0 - 100.0 seconds. Range based on correlation with therapeutic heparin activity range of 0.3 - 0.7 Units/mL. Current interpretive data was last revised on 2023. Blood 11/14/2024 10:5 0 AM GLOBAL ACCOUNT DIRECTOR 11/14/2024 11:14 AM GLOBAL ACCOUNT DIRECTOR Toby Soto MD LAB BLOOD ORDERABLES Fi nal Result Performing Organization Address [facility] Co de Phone Number LEMUEL [facility] Department [place] [address] * (ABNORMAL) Protime-INR (11/14/2024 10:50 AM GLOBAL ACCOUNT DIRECTOR) PT 15.6(H) 9.7 - 13.0 sec INR 1.43(H) 0.90 - 1.20 [facility] Comment: Interpretive data Oral anticoagulant therapeutic ranges: Venous thromboembolism prophylaxis or treatment: 2.0-3.0 CARDIOLOGY Standard range: 2.0-3.0 High-intensity range: 2.5-3.5 Refer to indication-specific guidelines for appropriate target ranges for prosthetic heart valve replacement. Current interpretive data was last revised on 2019. Blood 11/14/2024 10:5 0 AM GLOBAL ACCOUNT DIRECTOR 11/14/2024 11:14 AM GLOBAL ACCOUNT DIRECTOR Toby Soto MD LAB BLOOD ORDERABLES Fi nal Result Performing Organization Address City/[facility]/ZIP Co de Phone Number [facility] Department [place] [address] * (ABNORMAL) Type and screen (11/14/2024 10:50 AM GLOBAL ACCOUNT DIRECTOR) Jabari, indirect Positive(A) ABO Rh A Positive [facility] Blood 11/14/2024 10:5 0 AM GLOBAL ACCOUNT DIRECTOR 11/14/2024 11:16 AM GLOBAL ACCOUNT DIRECTOR Narrative [facility] - 11/14/2024 12:20 PM GLOBAL ACCOUNT DIRECTOR Has the patient had Daratumumab or Isatuximab in the past 6 months?->Unknown Toby Soto MD LAB BLOOD BANK TEST ORD ERABLES Final Result [facility] [place] [address] * Uric acid (11/14/2024 10:50 AM GLOBAL ACCOUNT DIRECTOR) Uric acid 3.0 2.5 - 7.0 mg/dL Blood 11/14/2024 10:5 0 AM GLOBAL ACCOUNT DIRECTOR 11/14/2024 11:03 AM GLOBAL ACCOUNT DIRECTOR us Toby Soto MD LAB BLOOD ORDERABLES Fi nal Result Performing Organization Address [facility] Co de Phone Number LEMUEL BORJAS [facility] Department [place] [address] * (ABNORMAL) Triglycerides (11/14/2024 10:50 AM GLOBAL ACCOUNT DIRECTOR) Pathologist [facility] Triglycerides 220(H) <=149 mg/dL Comment: Interpretive Data [...] on 2018. Blood 11/14/2024 10:5 0 AM GLOBAL ACCOUNT DIRECTOR 11/14/2024 11:03 AM GLOBAL ACCOUNT DIRECTOR Toby Soto MD LAB BLOOD ORDERABLES Fi nal Result Performing Organization Address [facility] Co de Phone Number LEMUEL BORJAS [facility] Department [place] [address] * (ABNORMAL) Protein electrophoresis with reflex, serum (11/14/2024 10:50 AM GLOBAL ACCOUNT DIRECTOR) Pathologist [facility] Protein, sr 6.3 6.2 - 8.2 g/dL Albumin 3.9 3.2 - 5.0 g/dL [facility] Alpha-1 globulin 0.4 0.2 - 0.4 g/dL [facility] Alpha-2 globulin 0.9 0.5 - 1.0 g/dL [facility] Beta-1 globulin 0.4 0.3 - 0.6 g/dL [facility] Beta-2 globulin 0.3 0.2 - 0.6 g/dL [facility] Gamma globulin 0.4(L) 0.5 - 1.7 g/dL [facility] Rstr Pk Gamma 0.1(H) 0.0 - 0.0 g/dL [facility] SPEP interp Please see comment [facility] Comment: Possible abnormal restricted peak in gamma region Decreased gamma globulins Electrophoretic pattern appears different from previous sample 10/09/2024 See immunotyping for further information Reviewed and signed by Amol Hopkins MD 11/15/2024 Blood 11/14/2024 10:5 0 AM GLOBAL ACCOUNT DIRECTOR 11/14/2024 12:55 PM GLOBAL ACCOUNT DIRECTOR us Toby Soto MD LAB BLOOD ORDERABLES Fi nal Result Performing Organization Address City/[facility] Co de Phone Number [facility] Department [place] [address] * Magnesium (11/14/2024 10:50 AM GLOBAL ACCOUNT DIRECTOR) [facility] Magnesium 1.9 1.4 - 2.5 mg/dL Blood 11/14/2024 10:5 0 AM GLOBAL ACCOUNT DIRECTOR 11/14/2024 11:03 AM GLOBAL ACCOUNT DIRECTOR Toby Soto MD LAB BLOOD ORDERABLES Fi nal Result Performing Organization Address [facility] Co de Phone Number [facility] Department [place] [address] * (ABNORMAL) Lactate dehydrogenase (LD) (11/14/2024 10:50 AM GLOBAL ACCOUNT DIRECTOR) Pathologist [facility] Lactate dehydrogenase (LDH) 263(H) 100 - 250 Units/L Comment:Hemolyzed; result ma y be falsely elevated Blood 11/14/2024 10:5 0 AM GLOBAL ACCOUNT DIRECTOR 11/14/2024 11:03 AM GLOBAL ACCOUNT DIRECTOR Toby Soto MD LAB BLOOD ORDERABLES Fi nal Result Performing Organization Address City/[facility] de Phone Number [facility] [place] [address] * (ABNORMAL) IgA (11/14/2024 10:50 AM GLOBAL ACCOUNT DIRECTOR) [facility] Immunoglobulin A <50(L) 70 - 400 mg/dL Blood 11/14/2024 10:5 0 AM GLOBAL ACCOUNT DIRECTOR 11/14/2024 11:55 AM GLOBAL ACCOUNT DIRECTOR Toby Soto MD LAB BLOOD ORDERABLES Fi nal Result Performing Organization Address [facility] de Phone Number [facility] [place] [address] * (ABNORMAL) IgM (11/14/2024 10:50 AM GLOBAL ACCOUNT DIRECTOR) [facility] Immunoglobulin M <25(L) 40 - 230 mg/dL Blood 11/14/2024 10:5 0 AM GLOBAL ACCOUNT DIRECTOR 11/14/2024 11:55 AM GLOBAL ACCOUNT DIRECTOR Toby Soto MD LAB BLOOD ORDERABLES Fi nal Result Performing Organization Address [facility] de Phone Number [facility] [place] [address] * (ABNORMAL) IgG (11/14/2024 10:50 AM GLOBAL ACCOUNT DIRECTOR) [facility] Immunoglobulin G 500(L) 700 - 1,600 mg/dL Blood 11/14/2024 10:5 0 AM GLOBAL ACCOUNT DIRECTOR 11/14/2024 11:55 AM GLOBAL ACCOUNT DIRECTOR us Toby Soto MD LAB BLOOD ORDERABLES Fi nal Result [facility] Department [place] [address] * (ABNORMAL) Comprehensive metabolic panel (11/14/2024 10:50 AM GLOBAL ACCOUNT DIRECTOR) Sodium 142 135 - 145 mmol/L Potassium, pl 4.4 3.3 - 4.9 mmol/L [facility] Comment:Hemolyzed; Potassium value may be falsely elevated by as much as 0.3-0.5 mmol/L. Suggest redraw and reanalysis. Chloride 109 97 - 110 mmol/L [facility] CO2 23 22 - 32 mmol/L [facility] Anion gap 10 2 - 15 mmol/L [facility] BUN 21 6 - 25 mg/dL [facility] Creatinine 0.76 0.60 - 1.10 mg/dL [facility] Glucose 84 70 - 199 mg/dL [facility] Comment: Interpretive Data Fasting glucose [...] 2022. Calcium 6.9(L) 8.5 - 10.3 mg/dL [facility] Bilirubin, total 0.2 0.1 - 1.2 mg/dL [facility] Protein, pl 6.6 6.5 - 8.5 g/dL [facility] Albumin 3.9 3.5 - 5.0 g/dL [facility] Alk phos 92 40 - 130 Units/L [facility] ALT 13 7 - 45 Units/L [facility] AST 20 10 - 45 Units/L [facility] Comment:Hemolyzed; result ma y be falsely elevated Blood 11/14/2024 10:5 0 AM GLOBAL ACCOUNT DIRECTOR 11/14/2024 11:03 AM GLOBAL ACCOUNT DIRECTOR us Toby Soto MD LAB BLOOD ORDERABLES Fi nal Result [facility] Department [place] [address] * TRANSTHORACIC ECHO (TTE) COMPLETE W DOPPLER/CF W CONTRAST (11/14/2024 10:40 AM GLOBAL ACCOUNT DIRECTOR) LV EF % CONS SCIMAGE Anatomical Region Laterality Modality Ultrasound 11/14/2024 9:36 AM GLOBAL ACCOUNT DIRECTOR Narrative 11/14/2024 3:08 PM GLOBAL ACCOUNT DIRECTOR [facility] [place] [address] Transthoracic Echocardiographic Report Patient Name: DENISE MCINTOSH ?? : 1965 (59y 4m) ??Gender: F Study Date: 11/14/2024 09:36:40 AM Ht(Inch): 65 ??Wt(Lb): 175.05 ??BSA: 1.91 Deaf/Hard Of Hearing Specialist: Carleen Ureña RDCS ??Location: [facility] Order Provider: TBOY SOTO Heart Rate: 70 ??BMI: 29.13 ??BP: 123 / 53 Quality: The study images were of technically good quality. Ref Provider: TOBY SOTO ?? PROCEDURES: Echocardiographic Report: ([id number], [id number], [id number]) Transthoracic complete echo with strain imaging and [...] Mod 2C ?36.97 ml ? AI Decel [place] ? 2.52 m/s2 ESV Mod 4C ?40.04 [...] [ 103.00 - 142.00 ] PV Accel [place] ? 374.39 cm/sec2 PI Peak Ion ?1.76 [...] By: Mookie Crowell MD 11/14/2024 3:07:07 PM GLOBAL ACCOUNT DIRECTOR Electronically Signed By: Mookie Crowell MD 11/14/2024 3:07:07 PM GLOBAL ACCOUNT DIRECTOR Procedure Note Mookie Crowell MD - 11/14/2024 [facility] Card[place] [address] Transthoracic Echocardiographic Report Patient Name: DENISE MCINTOSH : 1965 (59y 4m) Gender: F Study Date: 11/14/2024 09:36:40 AM Ht(Inch): 65 Wt(Lb): 175.05 BSA: 1.91 Deaf/Hard Of Hearing Specialist: Carleen Ureña RDCS Location: [facility] Order Provider:TOBY SOTO Heart Rate: 70 BMI: 29.13 BP: 123 / 53 Quality: The study images were oftechnically good quality. Ref Provider: TOBY SOTO PROCEDURES: Echocardiographic Report: ([id number], [id number], [id number]) Transthoracic completeecho with strain imaging and contrast, [...] [ 46.00 - 106.00 ] AI Decel Pqkh9701.32 sec ESV Mod 2C 36.97 ml AI Decel [place]2.52 m/s2 ESV Mod 4C 40.04 ml AI IXQ581.66 msec ESV Mod BP 40.04 ml [ [...] LA Volume 2C 77.6 ml MV Decel Xxvf408.44 msec [ 104.00 - 258.00 ] LA [...] cm/m2 [ 10.00 - 18.00 ] MR FQY707.8 cm RA Volume 30.30 ml MR Flow0.21 [...] msec [ 103.00 -142.00 ] PV Accel [place] 374.39 cm/sec2 PI Peak Ion 1.76 m/s [...] By: Mookie Crowell MD 11/14/2024 3:07:07 PM GLOBAL ACCOUNT DIRECTOR Electronically Signed By: Mookie Crowell MD 11/14/2024 3:07:07 PM GLOBAL ACCOUNT DIRECTOR us Toby Soto MD CV ECHO PROCEDURES Gabi l Result * Pulmonary Function Test - (11/14/2024 7:49 AM GLOBAL ACCOUNT DIRECTOR) FVC PRE 2.60 L [facility] FVC %PRE PRED 84 % [facility] FEV1 PRE 2.15 L [facility] FEV1 %PRE PRED 88 % [facility] FEV1/FVC PRE 82.8 % [facility] FRC PL PRE 1.95 L [facility] FRC PL %PRE PRED 65 % [facility] RV PRE 1.21 L [facility] RV %PRE PRED 58 % [facility] TLC PRE 3.81 L [facility] TLC %PRE PRED 73 % [facility] DLCO PRE 16.1 ml/min/mmH g [facility] DLCO %PRE PRED 79 % [facility] Anatomical Region Laterality Modality PFT 11/14/2024 7:27 AM GLOBAL ACCOUNT DIRECTOR Narrative 11/17/2024 2:53 AM GLOBAL ACCOUNT DIRECTOR PFT performed at:->[facility] PFT ACB1A [...] and %HbO2 is age dependent. However, the [facility] Pulmonary Function Laboratory defines hypoxemia as a PaO2 <56 mm Hg or a %HbO2 <89%. Starting on October of 2024 the [facility] Pulmonary Function Laboratory utilizes race neutral GLI Global normative equations. Toby Soto MD PFT ORDERABLES Final R esult * SCAN - PATHOLOGY (10/09/2024 12:36 PM GLOBAL ACCOUNT DIRECTOR) Provider Scanning Final Result * Antibody identification (10/07/2024 3:12 PM GLOBAL ACCOUNT DIRECTOR) Antibody ID 1 Anti-CD38 Comment:Panreactive -CD38 on reagent RBCs reacting with anti-CD38 therapy. DTT treatment removes cell surface CD38 and allows detection of common clinically significant antibodies except those against Kennedy antigens. TRANSFUSION 2015;55;[id number] Blood 10/07/2024 3:12 PM GLOBAL ACCOUNT DIRECTOR 10/07/2024 3:12 PM GLOBAL ACCOUNT DIRECTOR Toby Soto MD LAB BLOOD BANK TEST ORD ERABLES Final Result LEMUEL BORJAS [facility] Department [place] [address] * Immunotyping, serum (10/07/2024 12:14 PM GLOBAL ACCOUNT DIRECTOR) [facility] Immunofixation Please see comment Comment: SMALL IGG KAPPA PARAPROTEIN Reviewed and signed by Travon Hernandez MD, PhD 10/09/2024 Immunosubtraction Please see comment LEMUEL [facility] Comment: See immunofixation for further information Reviewed and signed by Travon Hernandez MD, PhD 10/08/2024 Blood 10/07/2024 12:1 4 PM GLOBAL ACCOUNT DIRECTOR 10/07/2024 3:07 PM GLOBAL ACCOUNT DIRECTOR Narrative [facility] MARYVALEROZ [facility] - 10/11/2024 8:17 AM GLOBAL ACCOUNT DIRECTOR Reflex Immunotyping, Ser us Toby Soto MD LAB BLOOD ORDERABLES Fi nal Result [facility] Department [place] [address] * eGFR (10/07/2024 12:14 PM GLOBAL ACCOUNT DIRECTOR) [facility] eGFR 73 >=60 mL/min/1. 73 m2 Comment: [...] of Race in Diagnosing Kidney Disease, JASN 2021). The CKD-EPI equation should not be used for patients with unstable renal function and has not been validated in children and those over 70. Current interpretive data was last reviewed 2021. Blood 10/07/2024 12:1 4 PM GLOBAL ACCOUNT DIRECTOR 10/07/2024 12:29 PM GLOBAL ACCOUNT DIRECTOR us Toby Soto MD LAB BLOOD ORDERABLES Fi nal Result [facility] MARYVALEROZ [facility] Department [place] [address] * (ABNORMAL) Differential, auto (10/07/2024 12:14 PM GLOBAL ACCOUNT DIRECTOR) Neutrophil abs 3.5 1.5 - 6.5 K/cumm Comment:Testing performed by : [facility] Heme [facility], [address] [place] [phone] Lymphocyte abs 0.5(L) 0.8 - 3.3 K/cumm CERNER [facility] Comment:Testing performed by : [facility], [address] [place] [phone] Monocyte abs 0.8 0.2 - 0.8 K/cumm CERNER [facility]J Comment:Testing performed by : [facility], [address] [place] [phone] Eosinophil abs 0.0 0.0 - 0.5 K/cumm C[facility]ER [facility]J Comment:Testing performed by : [facility], [address] [place] [phone] Basophil abs 0.0 0.0 - 0.1 K/cumm [facility]ER [facility]J Comment:Testing performed by : [facility], [address] [place] [phone] Neutrophil pct 72.0 % [facility] Comment: Interpretive Data Percent cell count reference ranges are not reported, since discordance with absolute values may lead to misinterpretation of CBC data. Current Interpretive Data was last revised on 2018. Testing performed by: [facility], [address] [place] [phone] Lymphocyte pct 10.9 % [facility] Comment: Interpretive Data Percent cell count reference ranges are not reported, since discordance with absolute values may lead to misinterpretation of CBC data. Current Interpretive Data was last revised on 2018. Testing performed by: [facility], [address] [place] [phone] Monocyte pct 16.4 % CERNER SUAD Comment: Interpretive Data Percent cell count reference ranges are not reported, since discordance with absolute values may lead to misinterpretation of CBC data. Current Interpretive Data was last revised on 2018. Testing performed by: [facility], [address] [place] [phone] Eosinophil pct 0.0 % CERNER [facility] Comment: Interpretive Data Percent cell count reference ranges are not reported, since discordance with absolute values may lead to misinterpretation of CBC data. Current Interpretive Data was last revised on 2018. Testing performed by: [facility], [address] [place] [phone] Basophil pct 0.7 % CERNER [facility] Comment: Interpretive Data Percent cell count reference ranges are not reported, since discordance with absolute values may lead to misinterpretation of CBC data. Current Interpretive Data was last revised on 2018. Testing performed by: [facility], [address] [place] [phone] Blood 10/07/2024 12:1 4 PM GLOBAL ACCOUNT DIRECTOR 10/07/2024 12:26 PM GLOBAL ACCOUNT DIRECTOR us Toby Soto MD LAB BLOOD ORDERABLES Fi nal Result [facility] Department [place] [address] * BMT donor evaluation (10/07/2024 12:14 PM GLOBAL ACCOUNT DIRECTOR) Hep B surf Ag, donor Negative Negative [facility] Hep B core Ab, donor Negative Negative [facility] Hep C Ab, donor Negative Negative [facility] HIV 1-2 Ab, donor Negative Negative [facility] HTLV I/II Ab, donor Negative Negative [facility] Syphilis testing, donor Negative Negative [facility] HIV KIM, donor Negative Negative CERNER [facility] HCV KIM, donor Negative Negative CERNER [facility] HBV KIM, donor Negative Negative C[facility] WNV KIM, donor Negative Negative [facility] CMV testing, donor Negative Negative CERNER [facility] Comment: Interpretive Data Testing performed by [facility] [place] [address] CLIA [id number] ??Panel consists of testing for Hepatitis B, Hepatitis C, HIV, HTLV, Syphilis, CMV, West Nile Virus and Chagas disease.Current interpretive data was last revised on 2022. Chagas testing, donor Negative Negative [facility] Blood 10/07/2024 12:1 4 PM GLOBAL ACCOUNT DIRECTOR 10/07/2024 1:36 PM GLOBAL ACCOUNT DIRECTOR Toby Soto MD LAB BLOOD ORDERABLES Fi nal Result Performing Organization Address [facility] Co de Phone Number [facility] Department [place] [address] * B K Antigen Type (10/07/2024 12:14 PM GLOBAL ACCOUNT DIRECTOR) Pathologist [facility] RBC K ag Negative Blood 10/07/2024 12:1 4 PM GLOBAL ACCOUNT DIRECTOR 10/07/2024 1:22 PM GLOBAL ACCOUNT DIRECTOR Toby Soto MD LAB BLOOD ORDERABLES Fi nal Result Performing Organization Address [facility] de Phone Number [facility] [place] [address] * Immunoglobulin free light chains (10/07/2024 12:14 PM GLOBAL ACCOUNT DIRECTOR) [facility] [place]/Lambda ratio [facility] 1.58 0.26 - 1.65 Comment: Interpretive Data The Binding Site FreeLite assay procedure was used. Results from different manufacturers or methods may not be comparable. Serial testing should be performed using the same methods and instrumentation. Current Interpretive Data was last revised on 2023. [place] free light chain [facility] 1.36 0.33 - 1.94 mg/dL LEMUEL BORJAS Comment: Interpretive Data The Binding Site FreeLite assay procedure was used. Results from different manufacturers or methods may not be comparable. Serial testing should be performed using the same methods and instrumentation. Current Interpretive Data was last revised on 2023. Lambda free light chain BJ 0.86 0.57 - 2.63 mg/dL LEMUEL [facility] Comment: Interpretive Data The Binding Site FreeLite assay procedure was used. Results from different manufacturers or methods may not be comparable. Serial testing should be performed using the same methods and instrumentation. Current Interpretive Data was last revised on 2023. Blood 10/07/2024 12:1 4 PM GLOBAL ACCOUNT DIRECTOR 10/07/2024 2:25 PM GLOBAL ACCOUNT DIRECTOR us Toby Soto MD LAB BLOOD ORDERABLES Fi nal Result [facility] MARYVALEROZ [facility] Department [place] [address] * (ABNORMAL) CBC with auto differential (10/07/2024 12:14 PM GLOBAL ACCOUNT DIRECTOR) WBC 4.8 3.8 - 9.9 K/cumm Comment:Testing performed by : [facility]e [facility], [address] [place] [phone] Hgb 9.6(L) 11.9 - 15.5 g/dL LEMUEL [facility] Comment:Testing performed by : [facility], [address] [place], [place] [id number] Hct 30.4(L) 35.6 - 45.5 % LEMUEL BORJAS Comment:Testing performed by : [facility], [address] [place] [id number] Plt 74(L) 150 - 400 K/cumm LEMUEL BORJAS Comment:Testing performed by : [facility], [address] [place] [address] MPV 13.5(H) 6.8 - 10.4 fL LEMUEL BORJAS Comment:Testing performed by : [facility], [address] [place] [address] RBC 3.21(L) 3.90 - 5.20 M/cumm LEMUEL [facility] Comment:Testing performed by : [facility], [address] [place] [address] MCV 94.9 81.3 - 96.4 fL [facility] MARYVALEROZ [facility] Comment:Testing performed by : [facility], [address] [place] [address] MCH 29.9 27.1 - 33.3 pg [facility] Comment:Testing performed by : [facility], [address] [place] [address] MCHC 31.5(L) 32.3 - 35.7 g/dL [facility] MARYVALEROZ [facility] Comment:Testing performed by : [facility], [address] [place] [address] RDW CV 17.2(H) 11.1 - 14.9 % [facility] Comment:Testing performed by : [facility], [address] [place] [address] NRBC abs 0.00 0.00 - 0.01 K/cumm [facility] Comment:Testing performed by : [facility], [address] [place] [address] Blood 10/07/2024 12:1 4 PM GLOBAL ACCOUNT DIRECTOR 10/07/2024 12:26 PM GLOBAL ACCOUNT DIRECTOR us Toby Soto MD LAB BLOOD ORDERABLES Fi nal Result [facility] Department [place] [address] * (ABNORMAL) HSV 2 IgG Antibody Blood (10/07/2024 12:14 PM GLOBAL ACCOUNT DIRECTOR) HSV 2 IgG Reactive( A) Nonreactive Comment: Interpretive Data 1. Nonreactive: No detectable IgG antibody to HSV-2. 2. Equivocal: Presence or absence of detectable antibodies to HSV-2 cannot be determined and the test should be repeated. 3. Reactive: Indicates presence of detectable IgG antibody to HSV-2. Current interpretive data was last revised on 2023. Blood 10/07/2024 12:1 4 PM GLOBAL ACCOUNT DIRECTOR 10/07/2024 2:25 PM GLOBAL ACCOUNT DIRECTOR Toby Soto MD LAB MICROBIOLOGY - GENE RAL ORDERABLES Final Result Performing Organization Address [facility] Phone Number [facility] [place] [address] * (ABNORMAL) HSV 1 IgG Antibody Blood (10/07/2024 12:14 PM GLOBAL ACCOUNT DIRECTOR) Pathologist [facility] HSV 1 IgG Reactive( A) Nonreactive Comment: Interpretive Data 1. Nonreactive: No detectable IgG antibody to HSV-1. 2. Equivocal: Presence or absence of detectable antibodies to HSV-1 cannot be determined and the test should be repeated. 3. Reactive: Indicates presence of detectable IgG antibody to HSV-1. Current interpretive data was last revised on 2017. Blood 10/07/2024 12:1 4 PM GLOBAL ACCOUNT DIRECTOR 10/07/2024 2:25 PM GLOBAL ACCOUNT DIRECTOR Toby Soto MD LAB MICROBIOLOGY - GENE RAL ORDERABLES Final Result Performing Organization Address [facility] Phone Number [facility] [place] [address] * Sickle cell screen (10/07/2024 12:14 PM GLOBAL ACCOUNT DIRECTOR) Pathologist [facility] Sickle cell, solubility Negative Negative Comment: [...] on 2019. Blood 10/07/2024 12:1 4 PM GLOBAL ACCOUNT DIRECTOR 10/07/2024 2:26 PM GLOBAL ACCOUNT DIRECTOR Toby Soto MD LAB BLOOD ORDERABLES Fi nal Result Performing Organization Address [facility] de Phone Number LEMUEL [facility] [place] [address] * aPTT (10/07/2024 12:14 PM GLOBAL ACCOUNT DIRECTOR) aPTT 30 28 - 38 sec Comment: Interpretive Data Heparin therapeutic range: 66.0 - 100.0 seconds. Range based on correlation with therapeutic heparin activity range of 0.3 - 0.7 Units/mL. Current interpretive data was last revised on 2023. Blood 10/07/2024 12:1 4 PM GLOBAL ACCOUNT DIRECTOR 10/07/2024 12:45 PM GLOBAL ACCOUNT DIRECTOR Toby Soto MD LAB BLOOD ORDERABLES Fi nal Result Performing Organization Address [facility] de Phone Number LEMUEL [facility] [place] [address] * (ABNORMAL) Protime-INR (10/07/2024 12:14 PM GLOBAL ACCOUNT DIRECTOR) PT 15.3(H) 9.7 - 13.0 sec INR 1.41(H) 0.90 - 1.20 [facility] Comment: Interpretive data Oral anticoagulant therapeutic ranges: Venous thromboembolism prophylaxis or treatment: 2.0-3.0 CARDIOLOGY Standard range: 2.0-3.0 High-intensity range: 2.5-3.5 Refer to indication-specific guidelines for appropriate target ranges for prosthetic heart valve replacement. Current interpretive data was last revised on 2019. Blood 10/07/2024 12:1 4 PM GLOBAL ACCOUNT DIRECTOR 10/07/2024 12:45 PM GLOBAL ACCOUNT DIRECTOR Toby Soto MD LAB BLOOD ORDERABLES Fi nal Result Performing Organization Address [facility] de Phone Number LEMUEL [facility] [place] [address] * (ABNORMAL) Type and screen (10/07/2024 12:14 PM GLOBAL ACCOUNT DIRECTOR) [facility] Jabari, indirect Positive(A) ABO Rh A Positive [facility] Blood 10/07/2024 12:1 4 PM GLOBAL ACCOUNT DIRECTOR 10/07/2024 1:22 PM GLOBAL ACCOUNT DIRECTOR Narrative [facility] - 10/07/2024 3:12 PM GLOBAL ACCOUNT DIRECTOR Has the patient had Daratumumab or Isatuximab in the past 6 months?->Unknown Toyb Soto MD LAB BLOOD BANK TEST ORD ERABLES Final Result [facility] [place] [address] * Uric acid (10/07/2024 12:14 PM GLOBAL ACCOUNT DIRECTOR) [facility] Uric acid 3.0 2.5 - 7.0 mg/dL Blood 10/07/2024 12:1 4 PM GLOBAL ACCOUNT DIRECTOR 10/07/2024 12:29 PM GLOBAL ACCOUNT DIRECTOR Toby Soto MD LAB BLOOD ORDERABLES Fi nal Result [facility] [place] [address] * (ABNORMAL) Protein electrophoresis with reflex, serum (10/07/2024 12:14 PM GLOBAL ACCOUNT DIRECTOR) [facility] Protein, sr 6.1(L) 6.2 - 8.2 g/dL Albumin 3.4 3.2 - 5.0 g/dL [facility] Alpha-1 globulin 0.4 0.2 - 0.4 g/dL [facility] Alpha-2 globulin 0.8 0.5 - 1.0 g/dL [facility] Beta-1 globulin 0.4 0.3 - 0.6 g/dL [facility] Beta-2 globulin 0.7(H) 0.2 - 0.6 g/dL [facility] Gamma globulin 0.4(L) 0.5 - 1.7 g/dL [facility] SPEP interp Please see comment [facility] Comment: Possible abnormal restricted peak in Beta-2 region Decreased gamma globulins See immunofixation for further information Reviewed and signed by Travon Hernandez MD, PhD 10/09/2024 Immunotyping See Immunotyping Results [facility] Blood 10/07/2024 12:1 4 PM GLOBAL ACCOUNT DIRECTOR 10/07/2024 2:25 PM GLOBAL ACCOUNT DIRECTOR Toby Soto MD LAB BLOOD ORDERABLES Fi nal Result Performing Organization Address City/[facility]/ZIP Co de Phone Number [facility] [place] [address] * Magnesium (10/07/2024 12:14 PM GLOBAL ACCOUNT DIRECTOR) Pathologist [facility] Magnesium 1.7 1.4 - 2.5 mg/dL Blood 10/07/2024 12:1 4 PM GLOBAL ACCOUNT DIRECTOR 10/07/2024 12:29 PM GLOBAL ACCOUNT DIRECTOR Toby Soto MD LAB BLOOD ORDERABLES Fi nal Result Performing Organization Address [facility] Co de Phone Number [facility] Department [place] [address] * Lactate dehydrogenase (LD) (10/07/2024 12:14 PM GLOBAL ACCOUNT DIRECTOR) Lactate dehydrogenase (LDH) 138 100 - 250 Units/L Blood 10/07/2024 12:1 4 PM GLOBAL ACCOUNT DIRECTOR 10/07/2024 12:29 PM GLOBAL ACCOUNT DIRECTOR Toby Soto MD LAB BLOOD ORDERABLES Fi nal Result Performing Organization Address City/[facility] Co de Phone Number [facility] [place] [address] * Hemoglobin A1c (10/07/2024 12:14 PM GLOBAL ACCOUNT DIRECTOR) [facility] Hgb A1C 5.6 4.0 - 5.6 % Estimated Average Glucose 114 mg/dL [facility] Comment: The ADA recommends reporting an estimated Average Glucose (eAG) with all Hemoglobin A1c results using the equation derived from a study of 507 normal and diabetic adults. ??Minority populations were underrepresented and children were not included. ?? (Diabetes Care 2020; 43(S1): S66-S76). ??The eAG is not equivalent to a fasting glucose. Blood 10/07/2024 12:1 4 PM GLOBAL ACCOUNT DIRECTOR 10/07/2024 12:29 PM GLOBAL ACCOUNT DIRECTOR Toby Soto MD LAB BLOOD ORDERABLES Fi nal Result Performing Organization Address [facility] de Phone Number [facility] [place] [address] * (ABNORMAL) IgA (10/07/2024 12:14 PM GLOBAL ACCOUNT DIRECTOR) [facility] Immunoglobulin A <50(L) 70 - 400 mg/dL Blood 10/07/2024 12:1 4 PM GLOBAL ACCOUNT DIRECTOR 10/07/2024 1:24 PM GLOBAL ACCOUNT DIRECTOR Toby Soto MD LAB BLOOD ORDERABLES Fi nal Result Performing Organization Address [facility] de Phone Number [facility] Department [place] [address] * (ABNORMAL) IgM (10/07/2024 12:14 PM GLOBAL ACCOUNT DIRECTOR) [facility] Immunoglobulin M <25(L) 40 - 230 mg/dL Blood 10/07/2024 12:1 4 PM GLOBAL ACCOUNT DIRECTOR 10/07/2024 1:24 PM GLOBAL ACCOUNT DIRECTOR Toby Soto MD LAB BLOOD ORDERABLES Fi nal Result Performing Organization Address [facility] de Phone Number [facility] Department [place] [address] * (ABNORMAL) IgG (10/07/2024 12:14 PM GLOBAL ACCOUNT DIRECTOR) [facility] Immunoglobulin G 563(L) 700 - 1,600 mg/dL Blood 10/07/2024 12:1 4 PM GLOBAL ACCOUNT DIRECTOR 10/07/2024 1:24 PM GLOBAL ACCOUNT DIRECTOR Toby Soto MD LAB BLOOD ORDERABLES Fi nal Result Performing Organization Address [facility] de Phone Number [facility] [place] [address] * Beta 2 microglobulin, serum (10/07/2024 12:14 PM GLOBAL ACCOUNT DIRECTOR) [facility] Beta 2 Microglobulin, Serum 1.70 1.00 - 2.50 mg/L Comment: Interpretive Data The Frank Beta-2 microglobulin assay procedure was used. Results from different manufacturers or methods may not be comparable. Serial testing should be performed using the same method. Blood 10/07/2024 12:1 4 PM GLOBAL ACCOUNT DIRECTOR 10/07/2024 1:24 PM GLOBAL ACCOUNT DIRECTOR Toby Soto MD LAB BLOOD ORDERABLES Fi nal Result Performing Organization Address [facility] de Phone Number [facility] Department [place] [address] * Lipid panel (10/07/2024 12:14 PM GLOBAL ACCOUNT DIRECTOR) [facility] Cholesterol 155 30 - 199 mg/dL Comment: [...] revised on 2018. Triglycerides 143 <=149 mg/dL [facility] Comment: Interpretive Data Ages < or [...] revised on 2018. HDL 55 >=40 mg/dL LEMUEL [facility] Comment: Interpretive Data Ages < or [...] on 2018. LDL, calculated 75 <=129 mg/dL [facility] Comment: Interpretive Data Ages < [...] NCEP Expert Panel. Circulation 2004;110:227 3. Lamont Nolasco et al. RIYA Cardiol. 2020 February 20;5(5):540-548. doi: 10.1001/jamacardio.2020.0013 Current Interpretive Data was last revised on 2024. Non-HDL Cholesterol 100 mg/dL [facility] Comment: Interpretive Data Ages < [...] last revised on 2018. Chol/HDL ratio 3 [facility] Blood 10/07/2024 12:1 4 PM GLOBAL ACCOUNT DIRECTOR 10/07/2024 12:29 PM GLOBAL ACCOUNT DIRECTOR us Toby Soto MD LAB BLOOD ORDERABLES Fi nal Result [facility] Department [place] [address] * (ABNORMAL) Comprehensive metabolic panel (10/07/2024 12:14 PM GLOBAL ACCOUNT DIRECTOR) Sodium 141 135 - 145 mmol/L Potassium, pl 4.4 3.3 - 4.9 mmol/L [facility] Chloride 108 97 - 110 mmol/L [facility] CO2 27 22 - 32 mmol/L [facility] Anion gap 6 2 - 15 mmol/L [facility] BUN 21 6 - 25 mg/dL [facility] Creatinine 0.90 0.60 - 1.10 mg/dL [facility] Glucose 99 70 - 199 mg/dL [facility] Comment: Interpretive Data Fasting glucose [...] classification and Diagnosis of Diabetes Diabetes Care 202; 46: S19-S40. Current interpretive data was last revised 2022. Calcium 8.7 8.5 - 10.3 mg/dL [facility] Bilirubin, total <0.2 0.1 - 1.2 mg/dL [facility] Protein, pl 6.0(L) 6.5 - 8.5 g/dL [facility] Albumin 3.7 3.5 - 5.0 g/dL [facility] Alk phos 129 40 - 130 Units/L [facility] ALT 11 7 - 45 Units/L [facility] AST 11 10 - 45 Units/L [facility] Blood 10/07/2024 12:1 4 PM GLOBAL ACCOUNT DIRECTOR 10/07/2024 12:29 PM GLOBAL ACCOUNT DIRECTOR us Toby Soto MD LAB BLOOD ORDERABLES nal Result [facility] Department [place] [address] from Last 3 Months Insurance [employer] [facility] [employer] [facility] [employer] [place] [employer] [facility] Care Teams Professional Nursing Tutor Relationship Specialty Start Date End Date Carri Kohli NP [address] [place] [address] PCP - General Family Medicine 09/18/24 Maria Luisa Dupree MD [address] [place] [address] Referring Physician Internal Medicine 09/18/24 Toby Soto MD [address] [facility] [address] [employer], , [place] [address] Consulting Physician Medical Oncology 09/23/24
[2024-11-20] MEDS: SODIUM CHLORIDE 0.9% IV PUSH (09:30)
[2024-11-20] MEDS: CALCIUM GLUCONATE IV PUSH (09:30)
[2024-11-20 12:40] VITALS: BP 111/53; PULSE 78; RESP 14; O2SAT 98
--- NOTE | 2024-11-20 12:43 | PC.NURSE ---
Patient here for Calcium infusion. Education given. All concerns voiced answered. Infusion administered. SEE MAR/patient care notes. Tolerated well.
== END 2024-11-20 08:59 | disposition home or self-care (01) ==
PROVIDERS: PCP Nurse Practitioner Family
DX: C90.00 Multiple myeloma not having achieved remission (principal)
CPT/HCPCS: 96365; 96366; J0612; J7050